=== PATIENT | female | born 1940 | race Caucasian/White ===

== ENCOUNTER 2020-06-09 13:15 | Inpatient (IN) | payer MEDICARE ==
--- NOTE | 2020-06-09 15:45 | ED ---
General Adult HPI - General Chief complaint: Abdominal Pain Stated complaint: Sent by Dr Dialysis problem Time Seen by Provider: 06/09/20 15:00 Source: patient, RN notes reviewed Mode of arrival: wheelchair Limitations: no limitations - History of Present Illness Initial comments: Patient is a pleasant 80-year-old female presenting to the emergency department with concern for nonfunctioning peritoneal dialysis catheter. Patient states last used was 2 days ago. Patient and still her dialysis fluid however nothing drained out. They did attempt at dialysis Center to get fluid out unsuccessfully. Somebody did touch base with Dr. Wiggins and advise patient come here. Patient does have some right lower abdominal discomfort. No fever. Patient states they were able to test some fluid and there was some mention of possible concern for infection. Patient denies having any fevers. No skin erythema or rash - Related Data Home Medications Medication Instructions Recorded Confirmed Calcitriol Unknown Dose 1 tab PO DAILY 06/09/20 06/09/20 Cephalexin [Keflex] 500 mg PO Q8H 06/09/20 06/09/20 Clopidogrel [Plavix] 75 mg PO DAILY 06/09/20 06/09/20 Insulin Glargine [Lantus] 50 unit SQ HS 06/09/20 06/09/20 Levothyroxine Sodium [Synthroid] 150 mcg PO DAILY 06/09/20 06/09/20 Metoprolol Tartrate [Lopressor] 100 mg PO BID 06/09/20 06/09/20 Torsemide Unknown Dose 1 tab PO BID 06/09/20 06/09/20 metOLazone [Zaroxolyn] 10 mg PO DAILY 06/09/20 06/09/20 Allergies Allergy/AdvReac Type Severity Reaction Status Date / Time levofloxacin [From Levaquin] Allergy Swelling Verified 06/09/20 16:14 Penicillins Allergy Swelling Verified 06/09/20 16:14 Sulfa (Sulfonamide Allergy Swelling Verified 06/09/20 16:14 Antibiotics) Review of Systems ROS Statement: Those systems with pertinent positive or pertinent negative responses have been documented in the HPI. ROS Other: All systems not noted in ROS Statement are negative. Constitutional: Denies: fever, chills Eyes: Denies: eye pain ENT: Denies: ear pain Respiratory: Denies: cough Cardiovascular: Denies: chest pain Endocrine: Denies: fatigue Gastrointestinal: Reports: as per HPI, abdominal pain. Denies: nausea, vomiting, diarrhea Genitourinary: Denies: dysuria Musculoskeletal: Denies: back pain Skin: Denies: rash, lesions Neurological: Denies: weakness Past Medical History Past Medical History: Coronary Artery Disease (CAD), Diabetes Mellitus, Hyperlipidemia, Hypertension, Renal Disease History of Any Multi-Drug Resistant Organisms: None Reported Past Surgical History: Cardiac Valve Replacement, Coronary Bypass/CABG, Heart Catheterization Past Psychological History: No Psychological Hx Reported Smoking Status: Never smoker Past Alcohol Use History: None Reported Past Drug Use History: None Reported General Exam Limitations: no limitations General appearance: alert, in no apparent distress Head exam: Present: atraumatic Eye exam: Present: normal appearance Neck exam: Present: normal inspection Respiratory exam: Present: normal lung sounds bilaterally Cardiovascular Exam: Present: regular rate, normal rhythm GI/Abdominal exam: Present: soft, tenderness (Mild right lower abdominal tenderness), other (Dialysis catheter left mid abdomen without swelling or tenderness or erythema). Absent: distended Extremities exam: Present: normal inspection Neurological exam: Present: alert Psychiatric exam: Present: normal affect, normal mood Skin exam: Present: normal color. Absent: rash, erythema Course Vital Signs 06/09/20 06/09/20 14:32 19:46 Temperature 98.7 F Pulse Rate 78 80 Respiratory 20 16 Rate Blood Pressure 186/83 194/89 O2 Sat by Pulse 97 97 Oximetry - Reevaluation(s) Reevaluation #1: 06/09/20 15:52 Case was discussed in detail with Dr. Wiggins who is familiar with this patient. He would like basic labs checked including potassium. He would like her tailbone acid catheter LOC for 24 hours of TPA and he will try to see for flushes tomorrow. At this point he would like a gram of cefepime and vancomycin. Admit to medicine. He also requests computed tomography scan of the abdomen pelvis to check for positioning of the catheter. Hold on surgical consult at this time and he will obtain tomorrow if Needed. 06/09/20 15:56 Case was discussed with Dr. Lee, who will admit for hospital call. Patient updated. EKG Findings - EKG Comments: EKG Findings:: Sinus rhythm with a rate of 74. FL 172. QRS 100. QT 422. QTC 468. Right axis. Septal Q waves. No acute ST change Medical Decision Making - Lab Data Result diagrams: 06/09/20 17:00 06/09/20 17:00 Disposition Clinical Impression: Peritonitis Disposition: ADMITTED IP TO THIS HOSP Condition: Serious Is patient prescribed a controlled substance at d/c from ED?: No Decision Time: 15:57
[2020-06-09] MEDS ORDERED: CEFEPIME 1 GM in SODIUM CHLORIDE 0.9% 50 ML IVPB STA (15:53)
[2020-06-09] MEDS ORDERED: VANCOMYCIN 1,250 MG in SODIUM CHLORIDE 0.9% 250 ML IVPB STA (15:53)
[2020-06-09] MEDS ORDERED: NALOXONE 0.4 MG/ML 1 ML VIAL IV PRN (15:58)
[2020-06-09] MEDS ORDERED: ALTEPLASE 2 MG VIAL (CATHFLO) IV STA (16:00)
[2020-06-09] MEDS ORDERED: IOPAMIDOL CONTRAST (ORAL USE) VIAL PO PRN (16:03)
[2020-06-09 17:04] LABS: Anisocytosis Slight; Basophils # (A) 0.1 k/uL (0-0.2); Basophils % (A) 0 %; Eosinophils # (A) 0.5 k/uL (0-0.7); Eosinophils % (A) 3 %; HCT 35.8 % (34.0-46.0); HGB 11.8 gm/dL (11.4-16.0); Lymphocytes # (A) 1.4 k/uL (1.0-4.8); Lymphocytes % (A) 8 %; MCH 29.1 pg (25.0-35.0); MCHC 32.9 g/dL (31.0-37.0); MCV 88.6 fL (80.0-100.0); Mean Platelet Volume 9.4; Monocytes # (A) 0.6 k/uL (0-1.0); Monocytes % (A) 4 %; Neutrophils # (A) 14.8 k/uL (1.3-7.7); Neutrophils % (A) 85 %; Platelet Count 423 k/uL (150-450); RBC 4.04 m/uL (3.80-5.40); RDW 16.7 % (11.5-15.5); WBC 17.4 k/uL (3.8-10.6)
[2020-06-09 17:05] LABS: Appearance,Urine Clear (Clear); Bilirubin,Urine Negative (Negative); Blood,Urine Trace (Negative); Color,Urine Light Yellow; Glucose,Urine (UA) Negative (Negative); Ketones,Urine Negative (Negative); Leukocyte Esterase,Urine Negative (Negative); Nitrite,Urine Negative (Negative); Protein,Urine 1+ (Negative); RBC,Urine 1 /hpf (0-5); Specific Gravity,Urine 1.009 (1.001-1.035); Squamous Epithelial Cell,Urine 1 /hpf (0-4); Urobilinogen,Urine <2.0 mg/dL (<2.0); WBC,Urine 2 /hpf (0-5)
[2020-06-09 17:15] LABS: Albumin 3.6 g/dL (3.5-5.0); Calcium 9.6 mg/dL (8.4-10.2); Potassium 3.9 mmol/L (3.5-5.1); Total Bilirubin 0.5 mg/dL (0.2-1.3); Total Protein 7.4 g/dL (6.3-8.2)
[2020-06-09 17:16] LABS: Partial Thromboplastin Time 27.1 sec (22.0-30.0); Prothrombin Time 10.6 sec (9.0-12.0)
[2020-06-09] MEDS: SODIUM CHLORIDE 0.9% 1,000 ML IV SCH (17:18)
--- NOTE | 2020-06-09 18:25 | CT ---
EXAMINATION TYPE: CT abdomen pelvis wo con DATE OF EXAM: 06/09/2020 COMPARISON: None HISTORY: Right sided groin pain. CT DLP: 833.8 mGycm Automated exposure control for dose reduction was used. Images obtained from the diaphragm to the floor the pelvis with oral contrast only. FINDINGS: There is some mild atelectasis at both lung bases. Heart is borderline enlarged. There is no pericard ial effusion. There is no pleural effusion. There is small pneumoperitoneum. There is drainage catheter in the anterior aspect of the peritoneal cavity with the tip on the right side near the ascending colon. Liver is intact. The bile ducts are not dilated. Gallbladder appears normal. Spleen is intact. There is no pancreatic mass. There is tiny pancreatic calcifications could relate to some chronic pancreati tis. There is no adrenal mass. Kidneys have normal size. There is no hydronephrosis. Ureters are not dilat ed. There is no retroperitoneal adenopathy. Bladder distends smoothly. There is some free fluid in th e pelvis. There is no inguinal hernia. There is extensive vascular calcification. There is evidence f or renal atrophy.. There is fairly normal contrast opacification of the small bowel. Contrast extends to the transverse colon. There is wall thickening of the cecum. The distal ileum appears normal. Ileocecal valve appear s normal. There is no evidence of a bowel obstruction. There is no mesenteric edema. The lumbar vertebra show f airly normal alignment. There is a mild degenerative subluxation at L3-4. There is disc space narrowi ng at L4-5. There is no compression fracture. The bony pelvis is intact. IMPRESSION: There is dialysis catheter in the anterior abdomen. There is mild to moderate pneumoperitoneum. No gorge wel obstruction. Wall thickening of the cecum. This is nonspecific. I would consider both inflammatory disease and alan or. There is low-density free fluid in the pelvis consistent with dialysis.
--- NOTE | 2020-06-09 18:55 | XR ---
EXAMINATION TYPE: XR chest 1V portable DATE OF EXAM: 06/09/2020 COMPARISON: NONE HISTORY: Pneumonia. Chest pain TECHNIQUE: FINDINGS: There is some linear density at the lung bases consistent with atelectasis. There is no hea rt failure. Thoracic aorta is atheromatous. There are sternal wires. IMPRESSION: There is some atelectasis at the lung bases. No heart failure.
[2020-06-09 19:22] LABS: Glucose,Whole Blood 102 mg/dL (75-99)
[2020-06-09] MEDS: ACETAMINOPHEN TAB 325 MG TAB PO PRN (19:29)
[2020-06-09 20:41] LABS: Glucose,Whole Blood 105 mg/dL (75-99)
--- NOTE | 2020-06-09 20:57 | HP ---
HISTORY AND PHYSICAL DATE OF SERVICE: 06/09/2020 CHIEF COMPLAINT: Abdominal pain. HISTORY OF PRESENT ILLNESS: This 80-year-old woman with a past medical history of multiple medical problems, including CAD, history of diabetes, hypertension, hyperlipidemia, history of CAD, CABG, history of chronic kidney disease, is on the peritoneal dialysis. The patient has been on peritoneal dialysis for the last 2 years by the nephrology team. The patient was noted to have some abdominal pain and also noted to have some turbid fluid coming from the return dialysate solution. The patient was sent to [facility] by the nephrology team. The dialysis catheter was also found to be blocked. The pain was mostly situated in the right lower quadrant. The dialysis catheter is in the left upper quadrant. There is no history of any fever, rigor or chills. No history of headache, loss of consciousness, seizures. PAST MEDICAL HISTORY: CAD, diabetes mellitus, hypertension, hyperlipidemia, cardiac valve replacement, CAD, CABG. HOME MEDICATIONS: Torsemide, calcitriol, Zaroxolyn, lopressor, Synthroid, Lantus, Plavix, Keflex. ALLERGIES: LEVAQUIN, PENICILLIN, SULFA. FAMILY HISTORY: No history of heart disease or strokes in the family. SOCIAL HISTORY: No history of smoking. No history of alcohol. REVIEW OF SYSTEMS: ENT: No diminished hearing. No diminished vision. CARDIOVASCULAR SYSTEM: As mentioned earlier. RESPIRATORY SYSTEM: As mentioned earlier. GI: As mentioned earlier. : As mentioned earlier. NERVOUS SYSTEM: No numbness, weakness. ALLERGY/IMMUNOLOGY: No asthma, hayfever. MUSCULOSKELETAL: As mentioned earlier. HEMATOLOGY/ONCOLOGY: No history of anemia. ENDOCRINE: As mentioned earlier. CONSTITUTIONAL: As mentioned earlier. DERMATOLOGY: Negative. RHEUMATOLOGY: Negative. PSYCHIATRY: As mentioned earlier. PHYSICAL EXAMINATION: Patient alert and oriented x3. Pulse is 78, blood pressure 186/83, respiration 20, temperature 98.7, pulse ox 97% on room air. HEENT: Conjunctivae normal. NECK: No jugular venous distention. CARDIOVASCULAR SYSTEM: S1, S2 muffled. RESPIRATORY SYSTEM: Breath sounds diminished at the bases. A few scattered rhonchi and crackles. ABDOMEN: Soft. Mild diffuse distention. Peritoneal dialysis catheter in situ. There is minimal tenderness in the right lower quadrant. No guarding. No mass palpable. Obese. LEGS: No edema. No swelling. NERVOUS SYSTEM: Higher functions as mentioned earlier. Moves all 4 limbs. No focal motor or sensory deficit. LYMPHATICS: No lymph node palpable in neck, axillae or groin. SKIN: No ulcer, rash, bleeding. JOINTS: No active deforming arthropathy. LABS: WBC 17.4, hemoglobin 11.8 and sodium 138, potassium 3.9, creatinine 3.83. UA noted. ASSESSMENT: 1. Abdominal pain with turbid dialysate fluid; possible acute peritonitis with possible early sepsis. 2. Chronic kidney disease, end-stage renal disease, on peritoneal dialysis. 3. Increased white count. 4. History of coronary artery disease. 5. Diabetes mellitus, type 2. 6. Hypertension. 7. Hyperlipidemia. 8. History of coronary artery disease, coronary artery bypass grafting. 9. History of cardiac valve replacement. 10.Obesity with body mass index of 30. 11.FULL CODE. RECOMMENDATIONS AND DISCUSSION: In this 80-year-old woman who presented with multiple complex medical issues, at this time I recommend initiate IV antibiotics. Will initiate cefepime and vancomycin. Otherwise, obtain the cultures. Nephrology consultation. CT scan of the abdomen and pelvis. Prognosis guarded because of multiple complex medical issues. Further recommendations to follow. A copy of this dictation is being forwarded to Dr. Lacey, who is the primary physician. MMODL / IJN: [id number] /
[2020-06-09] MEDS ORDERED: TORSEMIDE PO SCH (21:00)
[2020-06-09] MEDS: INSULIN DETEMIR (LEVEMIR) 100 UNIT/ML SYR SQ SCH (22:53)
[2020-06-09] MEDS: INSULIN ASPART (NovoLOG) 100 UNIT/ML VIAL SQ SCH (22:53)
[2020-06-10] MEDS: METOPROLOL TARTRATE 50 MG TAB PO SCH ×3 (00:42→21:20)
[2020-06-10] MEDS: CEFEPIME 2 GM in SODIUM CHLORIDE 0.9% 100 ML IVPB SCH ×4 (00:56→23:22)
[2020-06-10 05:28] LABS: Anisocytosis Slight; Basophils # (A) 0.1 k/uL (0-0.2); Basophils % (A) 0 %; Eosinophils # (A) 0.2 k/uL (0-0.7); Eosinophils % (A) 1 %; HCT 32.4 % (34.0-46.0); HGB 10.4 gm/dL (11.4-16.0); Lymphocytes # (A) 0.4 k/uL (1.0-4.8); Lymphocytes % (A) 2 %; MCH 28.3 pg (25.0-35.0); MCHC 32.1 g/dL (31.0-37.0); MCV 88.3 fL (80.0-100.0); Mean Platelet Volume 8.8; Monocytes # (A) 0.6 k/uL (0-1.0); Monocytes % (A) 4 %; Neutrophils # (A) 16.4 k/uL (1.3-7.7); Neutrophils % (A) 93 %; Platelet Count 347 k/uL (150-450); RBC 3.67 m/uL (3.80-5.40); RDW 16.5 % (11.5-15.5); WBC 17.7 k/uL (3.8-10.6)
[2020-06-10 05:57] LABS: ALT 12 U/L (4-34); AST 21 U/L (14-36); African American GFR (CKD) 12 (>60 ml/min/1.73 sqM); Albumin 2.9 g/dL (3.5-5.0); Albumin/Globulin Ratio 0.9; Alkaline Phosphatase 89 U/L (38-126); Anion Gap 10 mmol/L; Blood Urea Nitrogen 39 mg/dL (7-17); Calcium 9.2 mg/dL (8.4-10.2); Carbon Dioxide 25 mmol/L (22-30); Chloride 100 mmol/L (98-107); Globulin 3.2 g/dL; Glucose 152 mg/dL (74-99); Non-African American GFR(CKD) 10 (>60 ml/min/1.73 sqM); Potassium 4.3 mmol/L (3.5-5.1); Sodium 135 mmol/L (137-145); Total Bilirubin 0.4 mg/dL (0.2-1.3); Total Protein 6.1 g/dL (6.3-8.2)
[2020-06-10 06:00] LABS: Glucose,Whole Blood 158 mg/dL (75-99)
[2020-06-10] MEDS: LEVOTHYROXINE 75 MCG TAB PO SCH (06:28)
[2020-06-10] MEDS: INSULIN ASPART (NovoLOG) 100 UNIT/ML VIAL SQ SCH ×4 (06:30→21:20)
[2020-06-10] MEDS: metOLazone 5 MG TAB PO SCH (08:02)
[2020-06-10] MEDS ORDERED: CLOPIDOGREL 75 MG TAB PO SCH (09:00)
[2020-06-10] MEDS ORDERED: CALCITRIOL PO SCH (09:00)
--- NOTE | 2020-06-10 09:19 | P.NPCON ---
History of Present Illness - Reason for Consult end stage renal disease - History of Present Illness Reason for consultation: End-stage renal disease History of present illness: Patient is a 80-year-old female seen in consultation for end-stage renal disease. She is maintained on peritoneal dialysis. Patient presented to the hospital due to inability to drain. Patient states she noticed cloudy dialysate on Monday and was seen by the PD nurse at the dialysis unit. The catheter was flushed with heparin however it would and drained. She also complains of pain within inflow. She did take Keflex for 2 days prior to admission. No fever or chills. No vomiting. She is having loose bowel movements today. Potassium level normal. Hemodynamically stable. No chest pain or shortness of breath. No edema. Computed tomography scan revealed dialysis catheter in the anterior abdomen. No bowel obstruction was noted. She did receive a dose of IV vancomycin as well as cefepime yesterday. Oral intake is fair. Vital signs are stable. General: The patient appeared well nourished and normally developed. HEENT: Head exam is unremarkable. Neck is without jugular venous distension. LUNGS: Breath sounds decreased. HEART: Rate and Rhythm are regular. ABDOMEN: Soft, nontender. EXTREMITITES: No edema. Past Medical History Past Medical History: Coronary Artery Disease (CAD), Diabetes Mellitus, Hyperlipidemia, Hypertension, Renal Disease History of Any Multi-Drug Resistant Organisms: None Reported Past Surgical History: Cardiac Valve Replacement, Coronary Bypass/CABG, Heart Catheterization Past Psychological History: No Psychological Hx Reported Smoking Status: Never smoker Past Alcohol Use History: None Reported Past Drug Use History: None Reported Medications and Allergies Home Medications Medication Instructions Recorded Confirmed Type Calcitriol Unknown Dose 1 tab PO DAILY 06/09/20 06/09/20 History Cephalexin [Keflex] 500 mg PO Q8H 06/09/20 06/09/20 History Clopidogrel [Plavix] 75 mg PO DAILY 06/09/20 06/09/20 History Insulin Glargine [Lantus] 50 unit SQ HS 06/09/20 06/09/20 History Levothyroxine Sodium [Synthroid] 150 mcg PO DAILY 06/09/20 06/09/20 History Metoprolol Tartrate [Lopressor] 100 mg PO BID 06/09/20 06/09/20 History Torsemide Unknown Dose 1 tab PO BID 06/09/20 06/09/20 History metOLazone [Zaroxolyn] 10 mg PO DAILY 06/09/20 06/09/20 History Allergies Allergy/AdvReac Type Severity Reaction Status Date / Time levofloxacin [From Levaquin] Allergy Swelling Verified 06/09/20 16:14 Penicillins Allergy Swelling Verified 06/09/20 16:14 Sulfa (Sulfonamide Allergy Swelling Verified 06/09/20 16:14 Antibiotics) Physical Exam Vitals: Vital Signs Temp Pulse Pulse Resp BP BP Pulse Ox 06/10/20 08:00 99.6 F 81 16 151/68 92 L 06/10/20 02:00 98.0 F 99 18 182/84 91 L 06/09/20 20:00 97.6 F 78 18 148/68 95 06/09/20 19:46 80 16 194/89 97 06/09/20 14:32 98.7 F 78 20 186/83 97 Intake and Output 06/09/20 06/10/20 06/10/20 22:59 06:59 14:59 Other: Voiding Method Toilet # Voids 1 Weight 81.6 kg Results - Lab Results Most recent lab results Calcium 9.2 mg/dL (8.4-10.2) 06/10/20 04:20 06/10/20 04:20 06/10/20 04:20 Assessment and Plan Plan: Assessment: 1. End-stage renal disease maintained on peritoneal dialysis. 2. Cloudy dialysate with concern for peritonitis. 3. Inability to drain. Catheter was flushed with heparin and also locked with Cathflo yesterday. No constipation. 4. Anemia of chronic kidney disease. Hgb at goal. 5. Diabetes mellitus. Plan: Will attempt to flush the catheter with heparin again. Patient received IV vancomycin on June 09. Maintain cefepime 1 g IV daily. If catheter functioning, will resume PD and send dialysate for cell count culture and Gram stain. Check C. diff. Check blood cultures. Consult infectious disease for the peritonitis and also surgery for potential revision if needed. If PD catheter not draining, will initiate hemodialysis. Patient agreeable. Thank you for the consultation. I will continue to follow the patient with you during her hospital stay.
[2020-06-10 11:53] LABS: Glucose,Whole Blood 114 mg/dL (75-99)
--- NOTE | 2020-06-10 12:41 | P.GSCN ---
History of Present Illness Consult date: 06/10/20 History of present illness: CHIEF COMPLAINT: Abdominal pain HISTORY OF PRESENT ILLNESS: This is a 80-year-old female with a known history of chronic kidney disease on peritoneal hemodialysis. Patient had peritoneal dialysis catheter placed 2 years ago at [facility]. Patient also has a history of coronary artery disease with prior CABG and cardiac stents, heart valve replacement, hyperlipidemia and hypertension. Past surgical history includes hysterectomy. Patient presents with abdominal pain. And concerns for malfunctioning peritoneal dialysis catheter. Patient reports that her dialysis catheter had stopped working yesterday. She noticed that the fluid had been cloudy on Monday and had a low output. She went to the dialysis center and the catheter was flushed with heparin however it would not drained. Patient has been having diffuse abdominal pain. She did have some nausea last night and she had been having some low-grade temps at home. There were concerns for peritonitis and she's been started on IV antibiotics. She also had received antibiotics prior to admission. She denies any change in bowel movements. Surgical service was consulted in regards to the malfunctioning peritoneal dialysis catheter. PAST MEDICAL HISTORY: See list. PAST SURGICAL HISTORY: See list. MEDICATIONS: See list. ALLERGIES: See list. SOCIAL HISTORY: No illicit drug use. REVIEW OF SYSTEMS: CONSTITUTIONAL: Denies fever or chills. HEENT: Denies blurred vision, vision changes, or eye pain. Denies hemoptysis CARDIOVASCULAR: Denies chest pain or pressure. RESPIRATORY: No shortness of breath. GASTROINTESTINAL: See HPI for pertinent findings HEMATOLOGIC: Denies bleeding disorders. GENITOURINARY: Denies any blood in urine or increased urinary frequency. SKIN: Denies pruitis. Denies rash. PHYSICAL EXAM: VITAL SIGNS: Reviewed GENERAL: Well-developed in no acute distress. HEENT: No sclera icterus. Extraocular movements grossly intact. Moist buccal mucosa. Head is atraumatic, normocephalic. No nasal drainage. ABDOMEN: Soft. Nondistended. Diffuse tenderness. NEUROLOGIC: Alert and oriented. Cranial nerves II through XII grossly intact. LABORATORY DATA: WBC 17.7 Hgb 10.4 platelets 347 creatinine 3.96 IMAGING: Computed tomography scan the abdomen and pelvis with oral contrast there is dialysis catheter in the anterior abdomen. There is mild to moderate pneumoperitoneum. No bowel obstruction. Wall thickening of the cecum. This is nonspecific. Radiologist recommends to consider both inflammatory disease and tumor. There is low-density free fluid in the pelvis consistent with dialysis. ASSESSMENT: 1. Malfunctioning peritoneal dialysis catheter 2. Abdominal pain 3. Possible peritonitis 4. Wall thickening of the cecum noted on CAT scan possible inflammatory disease and/or tumor noted by radiologist PLAN: -Patient scheduled for peritoneal dialysis catheter insertion on Monday06/12/[address] Ruiz -Hold Plavix in anticipation for procedure -Patient will eventually need colonoscopy for further evaluation of the wall thickening at the cecum -Continue antibiotics for peritonitis Thank you for this consultation Physician Eddy Current Inspector note has been reviewed by physician. Signing provider agrees with the documented findings, assessment, and plan of care. Past Medical History Past Medical History: Coronary Artery Disease (CAD), Diabetes Mellitus, GI Blee d, Hyperlipidemia, Hypertension, Osteoarthritis (OA), Pneumonia, Renal Disease, Thyroid Disorder Additional Past Medical History / Comment(s): IDDM type II, neuropathy bilateral feet, ESRD/peritoneal dialysis x 3 years, UTI in past, pneumonia as a child, arthritis in bilateral hands, gastric ulcer, lower GI bleed with transfusions, past would "miss a heartbeat once in awhile", hypothyroid. History of Any Multi-Drug Resistant Organisms: None Reported Past Surgical History: Cardiac Valve Replacement, Coronary Bypass/CABG, Heart Catheterization, Heart Catheterization With Stent Additional Past Surgical History / Comment(s): 2018 CABG 3 vessels with valve replacement at [facility], peritoneal dialysis catheter, EGDs, colonoscopies, thyroidectomy d/t precancerous, bilateral cataract removal/lens implants. Additional Past Anesthesia/Blood Transfusion Reaction / Comm: Sometimes slow to wake. Pt has received blood in past without reaction. Date of Last Stent Placement:: 2015 Smoking Status: Never smoker - Past Family History Father Family Medical History: Myocardial Infarction (RI) Additional Family Medical History / Comment(s): Father of a RI at the age of 65yrs. Mother Family Medical History: CVA/TIA Additional Family Medical History / Comment(s): Mother of a CVA at the age of 78yrs. Medications and Allergies Home Medications Medication Instructions Recorded Confirmed Type Cephalexin [Keflex] 500 mg PO Q8H 06/09/20 06/09/20 History Clopidogrel [Plavix] 75 mg PO DAILY 06/09/20 06/09/20 History Insulin Glargine [Lantus] 50 unit SQ HS 06/09/20 06/09/20 History Levothyroxine Sodium [Synthroid] 150 mcg PO DAILY 06/09/20 06/09/20 History Metoprolol Tartrate [Lopressor] 100 mg PO BID 06/09/20 06/09/20 History metOLazone [Zaroxolyn] 10 mg PO DAILY 06/09/20 06/09/20 History Torsemide [Demadex] 20 mg PO BID 06/10/20 06/10/20 History calcitrioL [Calcitriol] 0.5 mcg PO DAILY 06/10/20 06/10/20 History Allergies Allergy/AdvReac Type Severity Reaction Status Date / Time levofloxacin [From Levaquin] Allergy Swelling Verified 06/09/20 16:14 Penicillins Allergy Swelling Verified 06/09/20 16:14 Sulfa (Sulfonamide Allergy Swelling Verified 06/09/20 16:14 Antibiotics) Surgical - Exam Vital Signs Temp Pulse Resp BP Pulse Ox 98.7 F 78 20 186/83 97 06/09/20 14:32 06/09/20 14:32 06/09/20 14:32 06/09/20 14:32 06/09/20 14:32 Results - Labs 06/10/20 04:20 06/10/20 04:20 Abnormal Lab Results - Last 24 Hours (Table) 06/09/20 06/09/20 06/09/20 Range/Units 17:00 17:00 17:00 WBC 17.4 H (3.8-10.6) k/uL RBC (3.80-5.40) m/uL Hgb (11.4-16.0) gm/dL Hct (34.0-46.0) % RDW 16.7 H (11.5-15.5) % Neutrophils # 14.8 H (1.3-7.7) k/uL Lymphocytes # (1.0-4.8) k/uL Sodium (137-145) mmol/L BUN 44 H (7-17) mg/dL Creatinine 3.83 H (0.52-1.04) mg/dL Glucose 134 H (74-99) mg/dL POC Glucose (mg/dL) (75-99) mg/dL Total Protein (6.3-8.2) g/dL Albumin (3.5-5.0) g/dL Urine Protein 1+ H (Negative) Urine Blood Trace H (Negative) 06/09/20 06/09/20 06/10/20 Range/Units 19:21 20:40 04:20 WBC 17.7 H (3.8-10.6) k/uL RBC 3.67 L (3.80-5.40) m/uL Hgb 10.4 L (11.4-16.0) gm/dL Hct 32.4 L (34.0-46.0) % RDW 16.5 H (11.5-15.5) % Neutrophils # 16.4 H (1.3-7.7) k/uL Lymphocytes # 0.4 L (1.0-4.8) k/uL Sodium (137-145) mmol/L BUN (7-17) mg/dL Creatinine (0.52-1.04) mg/dL Glucose (74-99) mg/dL POC Glucose (mg/dL) 102 H 105 H (75-99) mg/dL Total Protein (6.3-8.2) g/dL Albumin (3.5-5.0) g/dL Urine Protein (Negative) Urine Blood (Negative) 06/10/20 06/10/20 06/10/20 Range/Units 04:20 05:59 11:51 WBC (3.8-10.6) k/uL RBC (3.80-5.40) m/uL Hgb (11.4-16.0) gm/dL Hct (34.0-46.0) % RDW (11.5-15.5) % Neutrophils # (1.3-7.7) k/uL Lymphocytes # (1.0-4.8) k/uL Sodium 135 L (137-145) mmol/L BUN 39 H (7-17) mg/dL Creatinine 3.96 H (0.52-1.04) mg/dL Glucose 152 H (74-99) mg/dL POC Glucose (mg/dL) 158 H 114 H (75-99) mg/dL Total Protein 6.1 L (6.3-8.2) g/dL Albumin 2.9 L (3.5-5.0) g/dL Urine Protein (Negative) Urine Blood (Negative) Diabetes panel 06/09/20 06/10/20 Range/Units 17:00 04:20 Sodium 138 135 L (137-145) mmol/L Potassium 3.9 4.3 (3.5-5.1) mmol/L Chloride 100 100 (98-107) mmol/L Carbon Dioxide 26 25 (22-30) mmol/L BUN 44 H 39 H (7-17) mg/dL Creatinine 3.83 H 3.96 H (0.52-1.04) mg/dL Glucose 134 H 152 H (74-99) mg/dL Calcium 9.6 9.2 (8.4-10.2) mg/dL AST 23 21 (14-36) U/L ALT 14 12 (4-34) U/L Alkaline Phosphatase 106 89 (38-126) U/L Total Protein 7.4 6.1 L (6.3-8.2) g/dL Albumin 3.6 2.9 L (3.5-5.0) g/dL Calcium panel 06/09/20 06/10/20 Range/Units 17:00 04:20 Calcium 9.6 9.2 (8.4-10.2) mg/dL Albumin 3.6 2.9 L (3.5-5.0) g/dL Pituitary panel 06/09/20 06/10/20 Range/Units 17:00 04:20 Sodium 138 135 L (137-145) mmol/L Potassium 3.9 4.3 (3.5-5.1) mmol/L Chloride 100 100 (98-107) mmol/L Carbon Dioxide 26 25 (22-30) mmol/L BUN 44 H 39 H (7-17) mg/dL Creatinine 3.83 H 3.96 H (0.52-1.04) mg/dL Glucose 134 H 152 H (74-99) mg/dL Calcium 9.6 9.2 (8.4-10.2) mg/dL Adrenal panel 06/09/20 06/10/20 Range/Units 17:00 04:20 Sodium 138 135 L (137-145) mmol/L Potassium 3.9 4.3 (3.5-5.1) mmol/L Chloride 100 100 (98-107) mmol/L Carbon Dioxide 26 25 (22-30) mmol/L BUN 44 H 39 H (7-17) mg/dL Creatinine 3.83 H 3.96 H (0.52-1.04) mg/dL Glucose 134 H 152 H (74-99) mg/dL Calcium 9.6 9.2 (8.4-10.2) mg/dL Total Bilirubin 0.5 0.4 (0.2-1.3) mg/dL AST 23 21 (14-36) U/L ALT 14 12 (4-34) U/L Alkaline Phosphatase 106 89 (38-126) U/L Total Protein 7.4 6.1 L (6.3-8.2) g/dL Albumin 3.6 2.9 L (3.5-5.0) g/dL
[2020-06-10 17:25] LABS: Glucose,Whole Blood 128 mg/dL (75-99)
[2020-06-10] MEDS ORDERED: DIALYSIS INTRAPERIT ONE (18:00)
[2020-06-10] MEDS ORDERED: DIALYSIS DEX INTRAPERIT ONE (18:00)
[2020-06-10] MEDS ORDERED: HEPARIN SODIUM PORCINE INTRAPERIT ONE (18:00)
[2020-06-10 20:10] LABS: Glucose,Whole Blood 261 mg/dL (75-99)
[2020-06-10] MEDS ORDERED: HEPARIN SODIUM,PORCINE 5,000 UNIT/ML 1 ML VIAL SQ SCH (21:00)
[2020-06-10] MEDS ORDERED: HYDROcodone/APAP 5-325MG 1 EACH TAB PO PRN (21:07)
[2020-06-10] MEDS ORDERED: HYDROmorphone 0.5 MG/0.5 ML SYRINGE IVP PRN (21:07)
[2020-06-10] MEDS: INSULIN DETEMIR (LEVEMIR) 100 UNIT/ML SYR SQ SCH (21:20)
[2020-06-10] MEDS: SODIUM CHLORIDE 0.9% 1,000 ML IV SCH (21:23)
--- NOTE | 2020-06-10 21:59 | PN ---
PROGRESS NOTE DATE OF SERVICE: 06/10/2020. This 80-year-old woman admitted with abdominal pain and peritonitis has blocked peritoneal tube. Surgery has been consulted. CT scan showed some inflammation in cecal area. White count is still elevated. The patient is on broad-spectrum IV antibiotics. Cultures are negative so far. Infectious Disease has been consulted. PAST MEDICAL HISTORY: Reviewed. REVIEW OF SYSTEMS: CARDIOVASCULAR: No angina. RESPIRATION: No cough. No hemoptysis. GI as mentioned earlier. : As mentioned earlier. Nervous system: No numbness or weakness. CURRENT MEDICATIONS: Reviewed and include: Tylenol, Cefepime, Levemir, Synthroid, Zaroxolyn and Lopressor. Doses are reviewed. PHYSICAL EXAMINATION: Alert and oriented times three. Pulse 76, blood pressure 170/72, respiration 16, temperature 97.9, pulse ox 94% on room air. HEENT: Conjunctivae normal. NECK: No JVD. CARDIOVASCULAR: S1, S2. RESPIRATORY: Breath sounds diminished in the bases. A few scattered rhonchi. ABDOMEN: Soft. Obese. Mild diffuse tenderness. LEGS: No edema. No swelling. NERVOUS SYSTEM: No focal deficits. LABS: WBC 17.7, hemoglobin 10.4, sodium 135. ASSESSMENT: 1. Abdominal pain with turbid dialysate fluid, possible acute peritonitis with possible early sepsis, present on admission. 2. Chronic kidney disease, end-stage renal disease on peritoneal dialysis. 3. Possible inflammation of the cecum and typhlitis. 4. Increased WBC. 5. History of coronary artery disease. 6. Diabetes mellitus type 2. 7. Hypertension. 8. Hyperlipidemia. 9. History of coronary artery disease/coronary artery bypass grafting. 10.History of cardiac valve replacement. 11.Obesity, body mass index of 30. 12.FULL CODE. RECOMMENDATIONS AND DISCUSSION: Recommend to continue symptomatic treatment. Otherwise we will monitor the patient closely with Nephrology consultation and surgery evaluation. Broad-spectrum IV antibiotic. DVT prophylaxis. Prognosis guarded because of multiple complex medical issues. Further recommendations to follow. MMODL / IJN: [id number] /
[2020-06-10] MEDS ORDERED: VANCOMYCIN IV PER PHARMACY 1 EACH MISC MISCELLANE PRN (22:18)
[2020-06-11] MEDS: HYDROcodone/APAP 5-325MG 1 EACH TAB PO PRN ×2 (01:29→19:25)
[2020-06-11] MEDS: LEVOTHYROXINE 75 MCG TAB PO SCH (05:17)
[2020-06-11 07:08] LABS: Glucose,Whole Blood 76 mg/dL (75-99)
[2020-06-11] MEDS: INSULIN ASPART (NovoLOG) 100 UNIT/ML VIAL SQ SCH ×4 (07:32→20:53)
--- NOTE | 2020-06-11 09:22 | CONS ---
CONSULTATION DATE OF SERVICE: 06/10/2020 REASON FOR CONSULTATION: Peritonitis. HISTORY OF PRESENT ILLNESS: The patient is an 80-year-old female with a past medical history significant for end-stage kidney disease, on peritoneal dialysis for last 2 years. The patient started having a problem with more cloudy peritoneal fluid on Monday and that is 4 days before presentation to the hospital. On Monday she was evaluated at the dialysis center and apparently the patient did have fluid cultures obtained. Over the next, last 2 days, patient noticed to have no output from her dialysis catheter site. The patient did go into the dialysis center to get the fluid out, but it was unsuccessful. Subsequently the patient was advised to come to the [facility] ER. On presentation to the hospital, the patient was afebrile and no fever has been recorded subsequently. The patient did have a white count of 17.7, creatinine was 3.96. Shetty PCR was negative. Urine has been negative. The patient has been given a dose of vancomycin and cefepime. Infectious Disease was consulted for further management of antibiotic therapy. Apparently the patient's peritoneal cultures obtained in the dialysis center was showing Gram-positive cocci in clusters with ID sensitivities pending. REVIEW OF SYSTEMS: Positive points have been mentioned in HPI. Rest of systems are negative. PAST MEDICAL HISTORY: Coronary artery disease, diabetes mellitus, hyperlipidemia, hypertension, , end- stage renal disease. PAST SURGICAL HISTORY: Cardiac valve replacement, coronary artery bypass grafting, heart catheterization. SOCIAL HISTORY: No history of smoking, drinking or drug use. FAMILY HISTORY: No pertinent findings noticed. ALLERGIES: Allergies to PENICILLIN, SULFA, LEVOFLOXACIN. MEDICATIONS: Medications include the patient is currently on Tylenol, [place], cefepime 2 grams q.8, heparin, Dilaudid, NovoLog, Levemir, Synthroid, Zaroxolyn, Lopressor and vancomycin pharmacy to dose. PHYSICAL EXAMINATION: Blood pressure 161/68, pulse of 81, temperature 98.2. She is 94% on room air. General description is an elderly female up in the chair in no distress. No tachypnea or accessory muscles of respiration use. HEENT: Examination shows no pallor or scleral icterus. Oral mucous membrane is dry. NECK: Trachea central. No thyromegaly. LUNGS: Unlabored breathing, clear to auscultation anteriorly. No wheeze or crackle. HEART: S1, S2. Regular rate and rhythm. ABDOMEN: Soft, mildly distended. No evidence of any infection at the site of the dialysis catheter. EXTREMITIES: No edema of feet. SKIN EXAMINATION: No rash or mass palpable. NEUROLOGICAL: Patient is awake, alert, oriented x3. Mood and affect normal. LABS: Culture in outpatient setting showing Gram-positive cocci in clusters. Blood culture so far negative. CT of abdomen and pelvis report mentioned above. DIAGNOSTIC IMPRESSION: Patient admitted to the hospital with abdominal pain. No function of her peritoneal dialysis catheter in this patient who recently did have cloudy peritoneal fluid and culture done in outpatient setting showing Gram-positive cocci in clusters with final ID sensitive pending, high clinical suspicion for either Staph epi or MRSA. PLAN: 1. The patient is currently covered vancomycin pharmacy to dose, to continue, however, discontinue the cefepime. 2. We will wait for the culture to finalize to determine the infecting pathogen and determine either to remove or keep the current dialysis catheter. However, if not functioning, it may need to be removed. 3. We will follow on clinical condition and culture to further adjust medication if needed. Thank you for this consultation. Will follow this patient along with you. MMODL / IJN: [id number] /
--- NOTE | 2020-06-11 09:23 | P.PN ---
Subjective Patient is seen in follow-up for end-stage renal disease. Unable to tolerate peritoneal dialysis exchanges due to significant pain. Currently on IV antibiotics for peritonitis. Oral intake fair. No chest pain or shortness of breath. Vital signs are stable. General: The patient appeared well nourished and normally developed. HEENT: Head exam is unremarkable. Neck is without jugular venous distension. LUNGS: Breath sounds decreased. HEART: Rate and Rhythm are regular. ABDOMEN: Soft, mild generalized tenderness. EXTREMITITES: No edema. Objective - Vital Signs Vital signs: Vital Signs Temp 97.8 F 06/11/20 07:07 Pulse 66 06/11/20 08:17 Resp 16 06/11/20 08:17 BP 156/66 06/11/20 07:07 Pulse Ox 95 06/11/20 07:07 Intake & Output 06/10/20 06/11/20 06/11/20 18:59 06:59 18:59 Intake Total 500 870 Output Total 300 Balance 500 570 Weight 81.6 kg Intake: Intake, IV Titration 100 280 Amount Cefepime 2 gm In Sodium 100 Chloride 0.9% 100 ml @ 25 mls/hr IVPB Q8HR LOCO Rx# :[id number] Sodium Chloride 0.9% 1, 280 000 ml @ 20 mls/hr IV . Q24H LOCO Rx#:[id number] Oral 400 590 Output: Urine 300 Other: Voiding Method Toilet Toilet # Voids 2 - Labs CBC & Chem 7: 06/10/20 04:20 06/10/20 04:20 Labs: Abnormal Lab Results - Last 24 Hours (Table) 06/10/20 06/10/20 06/10/20 Range/Units 11:51 17:23 20:09 POC Glucose (mg/dL) 114 H 128 H 261 H (75-99) mg/dL Microbiology - Last 24 Hours (Table) 06/09/20 16:30 Blood Culture - Preliminary Blood No Growth after 24 hours 06/09/20 16:45 Blood Culture - Preliminary Blood No Growth after 24 hours Assessment and Plan Plan: Assessment: 1. End-stage renal disease maintained on peritoneal dialysis. 2. CAPD peritonitis. Patient's dialysate culture was positive for gram- positive cocci. 3. Inability to drain. Catheter was flushed with heparin and also locked with Cathflo. No constipation. Likely due to peritonitis. 4. Anemia of chronic kidney disease. Hgb at goal. 5. Diabetes mellitus. Plan: Maintain IV vancomycin. Infectious disease consulted. Remove PD catheter. Consult vascular surgery for permacath placement. Initiate hemodialysis today. Follow up cultures. Will reconsider peritoneal dialysis down the road once peritonitis treatment completed. Patient is agreeable with the plan.
[2020-06-11] MEDS: metOLazone 5 MG TAB PO SCH (10:07)
[2020-06-11] MEDS: METOPROLOL TARTRATE 50 MG TAB PO SCH ×2 (10:07→20:53)
[2020-06-11] MEDS: HEPARIN SODIUM,PORCINE/PF 5,000 UNIT/0.5 ML SYRINGE SQ SCH ×3 (10:07→20:53)
[2020-06-11] MEDS: PANTOPRAZOLE 40 MG TABLET PO SCH (10:07)
[2020-06-11 11:07] LABS: Glucose,Whole Blood 106 mg/dL (75-99)
[2020-06-11 11:12] LABS: Basophils # (A) 0.06 X 10*3/uL (0.00-0.10); Basophils % (A) 0.5 %; Eosinophils # (A) 0.49 X 10*3/uL (0.04-0.35); Eosinophils % (A) 4.4 %; HCT 32.7 % (37.2-46.3); HGB 10.1 g/dL (12.0-15.0); Lymphocytes # (A) 0.95 X 10*3/uL (0.90-5.00); Lymphocytes % (A) 8.5 %; MCH 28.4 pg (27.0-32.0); MCHC 30.9 g/dL (32.0-37.0); MCV 91.9 fL (80.0-97.0); Mean Platelet Volume 11.6 fL (9.5-12.2); Monocytes # (A) 0.91 X 10*3/uL (0.20-1.00); Monocytes % (A) 8.2 %; Neutrophils # (A) 8.52 X 10*3/uL (1.80-7.70); Neutrophils % (A) 76.3 %; Platelet Count 344 X 10*3/uL (140-440); RBC 3.56 X 10*6/uL (4.10-5.20); RDW 16.7 % (11.5-14.5); WBC 11.16 X 10*3/uL (4.50-10.00)
[2020-06-11 11:57] LABS: African American GFR (CKD) 11.4 (60.0-200.0); Anion Gap 9.4 mmol/L (4.00-12.00); BUN/Creat Ratio 12.25 Ratio (12.00-20.00); Calcium 9.2 mg/dL (8.7-10.3); Carbon Dioxide 25.6 mmol/L (21.6-31.8); Non-African American GFR(CKD) 9.9 (60.0-200.0); Potassium 3.7 mmol/L (3.5-5.5)
[2020-06-11] MEDS ORDERED: VANCOMYCIN 1,500 MG in SODIUM CHLORIDE 0.9% 250 ML IVPB ONE (12:00)
[2020-06-11] MEDS ORDERED: LIDOCAINE 1% INJ 10MG/ML (20 ML MDV) SQ ONE (14:31)
[2020-06-11] MEDS ORDERED: MIDAZOLAM 2 MG/2 ML VIAL IV ONE ×2 (14:35)
[2020-06-11] MEDS ORDERED: IV FLUID CONTINUATION 800 ML IV ONE (14:36)
--- NOTE | 2020-06-11 14:48 | P.PN ---
Subjective Progress Note Date: 06/11/20 CHIEF COMPLAINT: Abdominal pain HISTORY OF PRESENT ILLNESS: Patient is followed by surgical service due to her malfunctioning peritoneal dialysis catheter. She is on antibiotics for peritonitis. She is followed by nephrology. She is scheduled for permacath placement by vascular surgery today and to start hemodialysis. Patient complains of right lower abdominal tenderness. She denies any nausea or vomiting. Case discussed with nephrology and medicine service. Afebrile. WBC has decreased from 17.7-11.16 Hgb 10.1 Patient seen and examined with Dr. Ruiz PHYSICAL EXAM: VITAL SIGNS: Reviewed. GENERAL: Well-developed in no acute distress. HEENT: No sclera icterus. Extraocular movements grossly intact. Moist buccal mucosa. Head is atraumatic, normocephalic. ABDOMEN: Soft. Distended. Right lower abdominal tenderness NEUROLOGIC: Alert and oriented. Cranial nerves II through XII grossly intact. ASSESSMENT: 1. Malfunctioning peritoneal dialysis catheter 2. Abdominal pain 3. Peritonitis 4. Wall thickening of the cecum noted on CAT scan possible inflammatory disease and/or tumor noted by radiologist PLAN: -Patient is scheduled for peritoneal catheter removal tomorrow 06/12/[address] Ruiz -Keep patient nothing by mouth after midnight -Keep Plavix on hold -Patient will eventually need colonoscopy for further evaluation of the wall thickening at the cecum -Patient scheduled for permacath placement by vascular surgery today -Continue antibiotics per ID Physician Bobbin Winder Tender note has been reviewed by physician. Signing provider agrees with the documented findings, assessment, and plan of care. Objective - Vital Signs Vital signs: Vital Signs Temp 98.2 F 06/11/20 12:39 Pulse 60 06/11/20 12:39 Resp 16 06/11/20 12:39 BP 155/68 06/11/20 12:39 Pulse Ox 94 L 06/11/20 12:39 Intake & Output 06/10/20 06/11/20 06/11/20 18:59 06:59 18:59 Intake Total 500 870 0 Output Total 300 Balance 500 570 0 Weight 81.6 kg Intake: Intake, IV Titration 100 280 Amount Cefepime 2 gm In Sodium 100 Chloride 0.9% 100 ml @ 25 mls/hr IVPB Q8HR LOCO Rx# :[id number] Sodium Chloride 0.9% 1, 280 000 ml @ 20 mls/hr IV . Q24H LOCO Rx#:[id number] Oral 400 590 0 Output: Urine 300 Other: Voiding Method Toilet Toilet # Voids 2 - Labs CBC & Chem 7: 06/11/20 06:19 06/11/20 06:19 Labs: Abnormal Lab Results - Last 24 Hours (Table) 06/10/20 06/10/20 06/11/20 Range/Units 17:23 20:09 06:19 WBC 11.16 H (4.50-10.00) X 10*3/uL RBC 3.56 L (4.10-5.20) X 10*6/uL Hgb 10.1 L (12.0-15.0) g/dL Hct 32.7 L (37.2-46.3) % MCHC 30.9 L (32.0-37.0) g/dL RDW 16.7 H (11.5-14.5) % Immature Gran # 0.23 H (0.00-0.04) X 10*3/uL Neutrophils # 8.52 H (1.80-7.70) X 10*3/uL Eosinophils # 0.49 H (0.04-0.35) X 10*3/uL BUN (9.0-27.0) mg/dL Creatinine (0.6-1.5) mg/dL Est GFR (CKD-EPI)AfAm (60.0-200.0) Est GFR (CKD-EPI)NonAf (60.0-200.0) Glucose (70-110) mg/dL POC Glucose (mg/dL) 128 H 261 H (75-99) mg/dL 06/11/20 06/11/20 Range/Units 06:19 11:05 WBC (4.50-10.00) X 10*3/uL RBC (4.10-5.20) X 10*6/uL Hgb (12.0-15.0) g/dL Hct (37.2-46.3) % MCHC (32.0-37.0) g/dL RDW (11.5-14.5) % Immature Gran # (0.00-0.04) X 10*3/uL Neutrophils # (1.80-7.70) X 10*3/uL Eosinophils # (0.04-0.35) X 10*3/uL BUN 49.0 H (9.0-27.0) mg/dL Creatinine 4.0 H (0.6-1.5) mg/dL Est GFR (CKD-EPI)AfAm 11.4 L (60.0-200.0) Est GFR (CKD-EPI)NonAf 9.9 L (60.0-200.0) Glucose 42 L* (70-110) mg/dL POC Glucose (mg/dL) 106 H (75-99) mg/dL Microbiology - Last 24 Hours (Table) 06/09/20 16:30 Blood Culture - Preliminary Blood No Growth after 24 hours 06/09/20 16:45 Blood Culture - Preliminary Blood No Growth after 24 hours
[2020-06-11] MEDS: SODIUM CHLORIDE 0.9% 1,000 ML IV SCH (14:49)
--- NOTE | 2020-06-11 15:07 | P.GSCN ---
History of Present Illness History of present illness: 80-year-old old white female, patient has a history of chronic renal failure on peritoneal dialysis patient came with abdominal pain and found to have a dialysis catheter.) Infected I was consulted for placement of a dialysis catheter right jugular approach. Patient has history of coronary artery disease diabetes hypertension chronic renal failure Neck examination neck is supple no bruit appreciated Chest is clear good and both lungs Abdomen patient has a pattern dialysis catheter or sounds are present Vascular brachial radial femoral pulses are present plan is placement of kathie lysis catheter risk and complication discussed Past Medical History Past Medical History: Coronary Artery Disease (CAD), Diabetes Mellitus, GI Bleed, Hyperlipidemia, Hypertension, Osteoarthritis (OA), Pneumonia, Renal Disease, Thyroid Disorder Additional Past Medical History / Comment(s): IDDM type II, neuropathy bilateral feet, ESRD/peritoneal dialysis x 3 years, UTI in past, pneumonia as a child, arthritis in bilateral hands, gastric ulcer, lower GI bleed with transfusions, past would "miss a heartbeat once in awhile", hypothyroid. History of Any Multi-Drug Resistant Organisms: None Reported Past Surgical History: Cardiac Valve Replacement, Coronary Bypass/CABG, Heart Catheterization, Heart Catheterization With Stent Additional Past Surgical History / Comment(s): 2018 CABG 3 vessels with valve replacement at [facility], peritoneal dialysis catheter, EGDs, colonoscopies, thyroidectomy d/t precancerous, bilateral cataract removal/lens implants. Additional Past Anesthesia/Blood Transfusion Reaction / Comm: Sometimes slow to wake. Pt has received blood in past without reaction. Date of Last Stent Placement:: 2015 Smoking Status: Never smoker - Past Family History Father Family Medical History: Myocardial Infarction (ME) Additional Family Medical History / Comment(s): Father of a ME at the age of 65yrs. Mother Family Medical History: CVA/TIA Additional Family Medical History / Comment(s): Mother of a CVA at the age of 78yrs. Medications and Allergies Home Medications Medication Instructions Recorded Confirmed Type Cephalexin [Keflex] 500 mg PO Q8H 06/09/20 06/09/20 History Clopidogrel [Plavix] 75 mg PO DAILY 06/09/20 06/09/20 History Insulin Glargine [Lantus] 50 unit SQ HS 06/09/20 06/09/20 History Levothyroxine Sodium [Synthroid] 150 mcg PO DAILY 06/09/20 06/09/20 History Metoprolol Tartrate [Lopressor] 100 mg PO BID 06/09/20 06/09/20 History metOLazone [Zaroxolyn] 10 mg PO DAILY 06/09/20 06/09/20 History Torsemide [Demadex] 20 mg PO BID 06/10/20 06/10/20 History calcitrioL [Calcitriol] 0.5 mcg PO DAILY 06/10/20 06/10/20 History Allergies Allergy/AdvReac Type Severity Reaction Status Date / Time levofloxacin [From Levaquin] Allergy Swelling Verified 06/09/20 16:14 Penicillins Allergy Swelling Verified 06/09/20 16:14 Sulfa (Sulfonamide Allergy Swelling Verified 06/09/20 16:14 Antibiotics) Surgical - Exam Vital Signs Temp Pulse Resp BP Pulse Ox 98.7 F 78 20 186/83 97 06/09/20 14:32 06/09/20 14:32 06/09/20 14:32 06/09/20 14:32 06/09/20 14:32 Results - Labs 06/11/20 06:19 06/11/20 06:19 Abnormal Lab Results - Last 24 Hours (Table) 06/10/20 06/10/20 06/11/20 Range/Units 17:23 20:09 06:19 WBC 11.16 H (4.50-10.00) X 10*3/uL RBC 3.56 L (4.10-5.20) X 10*6/uL Hgb 10.1 L (12.0-15.0) g/dL Hct 32.7 L (37.2-46.3) % MCHC 30.9 L (32.0-37.0) g/dL RDW 16.7 H (11.5-14.5) % Immature Gran # 0.23 H (0.00-0.04) X 10*3/uL Neutrophils # 8.52 H (1.80-7.70) X 10*3/uL Eosinophils # 0.49 H (0.04-0.35) X 10*3/uL BUN (9.0-27.0) mg/dL Creatinine (0.6-1.5) mg/dL Est GFR (CKD-EPI)AfAm (60.0-200.0) Est GFR (CKD-EPI)NonAf (60.0-200.0) Glucose (70-110) mg/dL POC Glucose (mg/dL) 128 H 261 H (75-99) mg/dL 06/11/20 06/11/20 Range/Units 06:19 11:05 WBC (4.50-10.00) X 10*3/uL RBC (4.10-5.20) X 10*6/uL Hgb (12.0-15.0) g/dL Hct (37.2-46.3) % MCHC (32.0-37.0) g/dL RDW (11.5-14.5) % Immature Gran # (0.00-0.04) X 10*3/uL Neutrophils # (1.80-7.70) X 10*3/uL Eosinophils # (0.04-0.35) X 10*3/uL BUN 49.0 H (9.0-27.0) mg/dL Creatinine 4.0 H (0.6-1.5) mg/dL Est GFR (CKD-EPI)AfAm 11.4 L (60.0-200.0) Est GFR (CKD-EPI)NonAf 9.9 L (60.0-200.0) Glucose 42 L* (70-110) mg/dL POC Glucose (mg/dL) 106 H (75-99) mg/dL Microbiology - Last 24 Hours (Table) 06/09/20 16:30 Blood Culture - Preliminary Blood No Growth after 24 hours 06/09/20 16:45 Blood Culture - Preliminary Blood No Growth after 24 hours Diabetes panel 06/11/20 Range/Units 06:19 Sodium 137 (135-145) mmol/L Potassium 3.7 (3.5-5.5) mmol/L Chloride 102 (96-109) mmol/L Carbon Dioxide 25.6 (21.6-31.8) mmol/L BUN 49.0 H (9.0-27.0) mg/dL Creatinine 4.0 H (0.6-1.5) mg/dL Glucose 42 L* (70-110) mg/dL Calcium 9.2 (8.7-10.3) mg/dL Calcium panel 06/11/20 Range/Units 06:19 Calcium 9.2 (8.7-10.3) mg/dL Pituitary panel 06/11/20 Range/Units 06:19 Sodium 137 (135-145) mmol/L Potassium 3.7 (3.5-5.5) mmol/L Chloride 102 (96-109) mmol/L Carbon Dioxide 25.6 (21.6-31.8) mmol/L BUN 49.0 H (9.0-27.0) mg/dL Creatinine 4.0 H (0.6-1.5) mg/dL Glucose 42 L* (70-110) mg/dL Calcium 9.2 (8.7-10.3) mg/dL Adrenal panel 06/11/20 Range/Units 06:19 Sodium 137 (135-145) mmol/L Potassium 3.7 (3.5-5.5) mmol/L Chloride 102 (96-109) mmol/L Carbon Dioxide 25.6 (21.6-31.8) mmol/L BUN 49.0 H (9.0-27.0) mg/dL Creatinine 4.0 H (0.6-1.5) mg/dL Glucose 42 L* (70-110) mg/dL Calcium 9.2 (8.7-10.3) mg/dL
--- NOTE | 2020-06-11 15:10 | P.PCN ---
Description of Procedure: Preop diagnoses is acute chronic renal failure with the infected pericardial dialysis catheter Postoperative is same Procedure patient brought to the Cath right side of the chest and neck was prepped and draped applied usual sterile manner 1% lidocaine for infected ultrasound-guided micropuncture puncture introducer arterial vein. A micropuncture guidewire was passed and 4-[place] dilators from the top of the guidewire. Then we passed a regular guidewire under fluoroscopy control guide was parked at the inferior vena cava. Then tunnel was created through the terminal be brought callus catheter was then checked the incision site. Then the dilator was advanced top of the guidewire. Then we passed a she's on the top of guidewire through the sheath we did do dialysis catheter sheath was removed tip of catheter superior vena cava atrial junction. Flushed with heparin saline and Hep-Lock secured with 3-0 nylon dressing applied patient are to the procedure well plan is chest x-ray
--- NOTE | 2020-06-11 15:35 | XR ---
EXAMINATION TYPE: XR chest 1V DATE OF EXAM: 06/11/2020 COMPARISON: 06/09/2020 INDICATION: Status post dialysis catheter insertion TECHNIQUE: Single frontal view of the chest is obtained. FINDINGS: The heart size is enlarged. The pulmonary vasculature is normal. The lungs are clear. IMPRESSION: 1. No acute pulmonary process.
--- NOTE | 2020-06-11 15:44 | IR ---
Fluoroscopy HISTORY: Central venous catheter placement 9.9 minutes fluoroscopy time supplied to the referring clinician. 270 intraoperative C-arm images do cument the procedure. See dictated report from vascular surgery.
[2020-06-11 17:05] LABS: Glucose,Whole Blood 81 mg/dL (75-99)
[2020-06-11 20:29] LABS: Glucose,Whole Blood 139 mg/dL (75-99)
[2020-06-11] MEDS: INSULIN DETEMIR (LEVEMIR) 100 UNIT/ML SYR SQ SCH (20:53)
--- NOTE | 2020-06-11 21:15 | PN ---
PROGRESS NOTE DATE OF SERVICE: 06/11/2020 INTERVAL HISTORY: This is an 80-year-old woman who was admitted with severe abdominal pain, possible acute peritonitis, being closely monitored at this time. The patient underwent a PermCath placement insertion by Dr. Hicks. Otherwise, the patient is on broad- spectrum IV antibiotics. Cultures are negative so far. The patient also has hypoglycemia. PAST MEDICAL HISTORY: Reviewed. REVIEW OF SYSTEMS: CARDIOVASCULAR: No angina. RESPIRATORY: As mentioned earlier. GI: As mentioned earlier. : No dysuria. NERVOUS SYSTEM: No numbness or weakness. CURRENT MEDS: Reviewed and include Tylenol, [place], Dilaudid, Levemir, Synthroid, Lopressor. PHYSICAL EXAM: GENERAL: Patient is alert and oriented times three. VITAL SIGNS: Pulse 61, blood pressure 157/66, respirations 16, temperature 97.8, pulse ox 91% on room air. HEENT: Conjunctivae normal. Oral mucosa moist. NECK: No jugular venous distention. No carotid bruits. No lymph node enlargement. RESPIRATORY: Breath sounds diminished at the bases. No rhonchi, no crackles. HEART: S1 and S2, muffled. ABDOMEN: Soft, no tenderness. No masses palpable. EXTREMITIES: No edema, no swelling. NERVOUS: No focal deficits. LAB STUDIES: WBC 11.3, hemoglobin 10.1, creatinine is 4. Glucose noted. ASSESSMENT: 1. Abdominal pain with acute peritonitis turbid dialysis fluid with possible early sepsis, present on admission. 2. Chronic kidney disease, end-stage renal disease, on peritoneal dialysis. 3. Status post PermCath placement. 4. Possible inflammation of the cecum and typhlitis, present on admission. 5. Increased WBC. 6. History of coronary artery disease. 7. Diabetes mellitus type 2. 8. Hypertension. 9. Hyperlipidemia. 10.History of coronary artery disease with coronary artery bypass graft. 11.History of cardiac valve replacement. 12.Obesity with body mass index of 30. 13.FULL CODE. RECOMMENDATIONS AND DISCUSSION: Continue current medications, continue symptomatic treatment, continue with antibiotics. Continue rest of medications. Closely follow with Surgery and as well as Vascular Surgery. Infectious Disease also seen the patient to adjust antibiotics. Otherwise peritoneal catheter will be removed by Dr. Ruiz. Guarded prognosis. Further recommendations to follow. MMODL / IJN: [id number] /
[2020-06-11 21:35] LABS: Hepatitis A Antibody IgM Non-Reactive (Non-Reactive); Hepatitis B Core IgM Non-Reactive (Non-Reactive); Hepatitis B Surface Antigen Non-Reactive (Non-Reactive); Hepatitis C IgG Antibody Non-Reactive (Non-Reactive)
--- NOTE | 2020-06-11 23:53 | PN ---
PROGRESS NOTE DATE OF SERVICE: 06/11/2020 REASON FOR FOLLOWUP: PT catheter insertion, peritonitis. INTERVAL HISTORY: The patient is currently afebrile. She is complaining of abdominal pain, though has decreased in intensity. The patient denies any chest pain, shortness of breath or cough. No nausea, vomiting or diarrhea. PHYSICAL EXAMINATION: Blood pressure 171/74 with a pulse of 81, temperature 98.2. She is 92% on room air. General description is an elderly female up in the chair in no distress. Respiratory system: Unlabored breathing, clear to auscultation anteriorly. Heart S1, S2 regular rate and rhythm. Abdomen soft, no tenderness. LABORATORY STUDIES: Hemoglobin 10.1, white count 11.16, creatinine 4.0. Blood culture so far negative. DIAGNOSTIC IMPRESSION AND PLAN: Patient with PD catheter insertion with peritonitis with marked functioning of the PD catheter of the same. The patient is covered with vancomycin to continue while waiting for the culture to finalize. Continue supportive care. MMODL / IJN: [id number] /
[2020-06-12] MEDS: ACETAMINOPHEN TAB 325 MG TAB PO PRN (01:33)
[2020-06-12] MEDS: LEVOTHYROXINE 75 MCG TAB PO SCH (03:46)
[2020-06-12 07:08] LABS: Anisocytosis Slight; Basophils % (A) 0 %; Eosinophils # (A) 0.8 k/uL (0-0.7); Eosinophils % (A) 6 %; HCT 32.3 % (34.0-46.0); HGB 10.7 gm/dL (11.4-16.0); Lymphocytes # (A) 0.9 k/uL (1.0-4.8); Lymphocytes % (A) 7 %; MCH 29.3 pg (25.0-35.0); MCHC 33.2 g/dL (31.0-37.0); MCV 88.2 fL (80.0-100.0); Mean Platelet Volume 8.7; Monocytes # (A) 0.7 k/uL (0-1.0); Monocytes % (A) 5 %; Neutrophils # (A) 9.9 k/uL (1.3-7.7); Neutrophils % (A) 80 %; Platelet Count 303 k/uL (150-450); RBC 3.66 m/uL (3.80-5.40); RDW 16.6 % (11.5-15.5); WBC 12.4 k/uL (3.8-10.6)
[2020-06-12 07:30] LABS: African American GFR (CKD) 16 (>60 ml/min/1.73 sqM); Anion Gap 6 mmol/L; Blood Urea Nitrogen 24 mg/dL (7-17); Calcium 8.9 mg/dL (8.4-10.2); Carbon Dioxide 28 mmol/L (22-30); Chloride 101 mmol/L (98-107); Glucose 158 mg/dL (74-99); Magnesium 1.6 mg/dL (1.6-2.3); Non-African American GFR(CKD) 14 (>60 ml/min/1.73 sqM); Phosphorus 3.5 mg/dL (2.5-4.5); Potassium 3.9 mmol/L (3.5-5.1); Sodium 135 mmol/L (137-145)
[2020-06-12 07:55] LABS: Glucose,Whole Blood 146 mg/dL (75-99)
[2020-06-12] MEDS: PANTOPRAZOLE 40 MG TABLET PO SCH (08:31)
[2020-06-12] MEDS: METOPROLOL TARTRATE 50 MG TAB PO SCH ×2 (08:31→23:27)
[2020-06-12] MEDS: metOLazone 5 MG TAB PO SCH (08:31)
[2020-06-12] MEDS: HEPARIN SODIUM,PORCINE/PF 5,000 UNIT/0.5 ML SYRINGE SQ SCH ×2 (08:32→23:27)
[2020-06-12] MEDS: INSULIN ASPART (NovoLOG) 100 UNIT/ML VIAL SQ SCH ×4 (09:15→23:27)
--- NOTE | 2020-06-12 09:40 | P.PN ---
Subjective Patient is seen in follow-up for end-stage renal disease. Unable to tolerate peritoneal dialysis exchanges due to significant pain. Currently on IV antibiotics for peritonitis. Oral intake fair. No chest pain or shortness of breath. She tolerated hemodialysis well yesterday. Vital signs are stable. General: The patient appeared well nourished and normally developed. HEENT: Head exam is unremarkable. Neck is without jugular venous distension. LUNGS: Breath sounds decreased. HEART: Rate and Rhythm are regular. ABDOMEN: Soft, mild generalized tenderness. EXTREMITITES: No edema. Objective - Vital Signs Vital signs: Vital Signs Temp 98.1 F 06/12/20 06:47 Pulse 75 06/12/20 09:07 Resp 16 06/12/20 09:07 BP 149/65 06/12/20 06:47 Pulse Ox 94 L 06/12/20 08:11 Intake & Output 06/11/20 06/12/20 06/12/20 18:59 06:59 18:59 Intake Total 1115 600 Output Total 300 Balance 1115 600 -300 Weight 81.5 kg Intake: IV 50 Intake, IV Titration 345 Amount Cefepime 2 gm In Sodium 100 Chloride 0.9% 100 ml @ 25 mls/hr IVPB [facility] Rx# :[id number] Sodium Chloride 0.9% 1, 120 000 ml @ 20 mls/hr IV . Q24H [facility] Rx#:[id number] Vancomycin 1,500 mg In 125 Sodium Chloride 0.9% 250 ml @ 125 mls/hr IVPB ONCE ONE Rx#:[id number] Oral 720 600 Output: Urine 300 Other: Voiding Method Toilet Toilet # Voids 3 1 1 - Labs CBC & Chem 7: 06/12/20 06:29 06/12/20 06:29 Labs: Abnormal Lab Results - Last 24 Hours (Table) 06/11/20 06/11/20 06/11/20 Range/Units 06:19 06:19 11:05 WBC 11.16 H (4.50-10.00) X 10*3/uL RBC 3.56 L (4.10-5.20) X 10*6/uL Hgb 10.1 L (12.0-15.0) g/dL Hct 32.7 L (37.2-46.3) % MCHC 30.9 L (32.0-37.0) g/dL RDW 16.7 H (11.5-14.5) % Immature Gran # 0.23 H (0.00-0.04) X 10*3/uL Neutrophils # 8.52 H (1.80-7.70) X 10*3/uL Lymphocytes # (1.0-4.8) k/uL Eosinophils # 0.49 H (0.04-0.35) X 10*3/uL Sodium (137-145) mmol/L BUN 49.0 H (9.0-27.0) mg/dL Creatinine 4.0 H (0.6-1.5) mg/dL Est GFR (CKD-EPI)AfAm 11.4 L (60.0-200.0) Est GFR (CKD-EPI)NonAf 9.9 L (60.0-200.0) Glucose 42 L* (70-110) mg/dL POC Glucose (mg/dL) 106 H (75-99) mg/dL 06/11/20 06/12/20 06/12/20 Range/Units 20:24 06:29 06:29 WBC 12.4 H (4.50-10.00) X 10*3/uL RBC 3.66 L (4.10-5.20) X 10*6/uL Hgb 10.7 L (12.0-15.0) g/dL Hct 32.3 L (37.2-46.3) % MCHC (32.0-37.0) g/dL RDW 16.6 H (11.5-14.5) % Immature Gran # (0.00-0.04) X 10*3/uL Neutrophils # 9.9 H (1.80-7.70) X 10*3/uL Lymphocytes # 0.9 L (1.0-4.8) k/uL Eosinophils # 0.8 H (0.04-0.35) X 10*3/uL Sodium 135 L (137-145) mmol/L BUN 24 H (9.0-27.0) mg/dL Creatinine 3.00 H (0.6-1.5) mg/dL Est GFR (CKD-EPI)AfAm (60.0-200.0) Est GFR (CKD-EPI)NonAf (60.0-200.0) Glucose 158 H (70-110) mg/dL POC Glucose (mg/dL) 139 H (75-99) mg/dL 06/12/20 Range/Units 07:51 WBC (4.50-10.00) X 10*3/uL RBC (4.10-5.20) X 10*6/uL Hgb (12.0-15.0) g/dL Hct (37.2-46.3) % MCHC (32.0-37.0) g/dL RDW (11.5-14.5) % Immature Gran # (0.00-0.04) X 10*3/uL Neutrophils # (1.80-7.70) X 10*3/uL Lymphocytes # (1.0-4.8) k/uL Eosinophils # (0.04-0.35) X 10*3/uL Sodium (137-145) mmol/L BUN (9.0-27.0) mg/dL Creatinine (0.6-1.5) mg/dL Est GFR (CKD-EPI)AfAm (60.0-200.0) Est GFR (CKD-EPI)NonAf (60.0-200.0) Glucose (70-110) mg/dL POC Glucose (mg/dL) 146 H (75-99) mg/dL Microbiology - Last 24 Hours (Table) 06/09/20 16:30 Blood Culture - Preliminary Blood No Growth after 48 hours 06/09/20 16:45 Blood Culture - Preliminary Blood No Growth after 48 hours Assessment and Plan Plan: Assessment: 1. End-stage renal disease maintained on peritoneal dialysis. 2. CAPD peritonitis. Patient's dialysate culture was positive for staph aureus. 3. Inability to drain and abdominal pain. Catheter was flushed with heparin and also locked with Cathflo. No constipation. Likely due to peritonitis. 4. Anemia of chronic kidney disease. Hgb at goal. 5. Diabetes mellitus. Plan: Maintain IV vancomycin. Infectious disease following. PD catheter to be removed today. Plan for hemodialysis again today. She will be maintained on a Monday schedule. Follow up cultures. Will reconsider peritoneal dialysis down the road once peritonitis treatment completed.
[2020-06-12] MEDS ORDERED: SODIUM CHLORIDE 0.9% 1,000 ML IV ONE (12:40)
[2020-06-12 12:49] LABS: Glucose,Whole Blood 145 mg/dL (75-99)
[2020-06-12] MEDS ORDERED: PHENYLEPHRINE-0.9% NACL SYG 1,000 MCG/10 ML SYRINGE ONE (13:50)
[2020-06-12] MEDS ORDERED: ONDANSETRON 4 MG/2 ML VIAL ONE (13:50)
[2020-06-12] MEDS ORDERED: PROPOFOL 10 MG/ML 20 ML VIAL IV ONE (13:50)
[2020-06-12] MEDS ORDERED: LIDOCAINE 1% INJ 10MG/ML (20 ML MDV) ONE (13:50)
[2020-06-12] MEDS ORDERED: HEPARIN SODIUM,PORCINE 5,000 UNIT/ML 1 ML VIAL ONE (13:50)
[2020-06-12] MEDS ORDERED: fentaNYL (PF) 50 MCG/ML 2 ML AMP ONE (13:50)
[2020-06-12] MEDS ORDERED: BUPIVACAINE (PF) 0.25% 30 ML VIAL SQ ONE ×2 (14:14)
[2020-06-12] MEDS ORDERED: SODIUM CHLORIDE 0.9% 250 ML with VANCOMYCIN 1,000 MG IV ONE ×2 (14:17)
--- NOTE | 2020-06-12 14:39 | P.OP ---
Date of Procedure: 06/12/20 Preoperative Diagnosis: Peritonitis Postoperative Diagnosis: Peritonitis Procedure(s) Performed: Removal of CAPD catheter Anesthesia: MARILU Surgeon: King Ruiz Estimated Blood Loss (ml): 5 Pathology: other (CAPD catheter for culture) Condition: stable Disposition: PACU Description of Procedure: Patient's placed on the operative table in supine position. She received general anesthesia. Her abdomen was prepped and draped usual fashion. A skin incision was made over the CPV insertion site. The Velcro cuff was found. Using left cautery the CP catheter was tested with fashion. The catheter was then removed from the peritoneal cavity. The tip the catheter was sent for culture. The fascial defect was then closed with 0 Vicryl suture. Next a subcutaneous pedicle cough was dissected free and the catheter was withdrawn. The skin was closed interrupted 3-0 Monocryl suture. Dermabond was applied. Patient top she will was sent to recovery room stable condition.
[2020-06-12] MEDS ORDERED: HYDROmorphone 0.5 MG/0.5 ML SYRINGE IVP ONE ×2 (14:59→15:04)
[2020-06-12] MEDS: SODIUM CHLORIDE 0.9% 1,000 ML IV SCH (17:11)
[2020-06-12 17:51] LABS: Glucose,Whole Blood 125 mg/dL (75-99)
[2020-06-12] MEDS ORDERED: VANCOMYCIN 1,500 MG in SODIUM CHLORIDE 0.9% 250 ML IVPB ONE (18:00)
--- NOTE | 2020-06-12 18:58 | PN ---
PROGRESS NOTE DATE OF SERVICE: 06/12/2020 REASON FOR FOLLOWUP: PD catheter-associated peritonitis, MSSA. INTERVAL HISTORY: The patient is currently afebrile. The patient did get a dialysis catheter yesterday and got dialyzed and did have removal of the PD catheter today. The patient tolerated the procedure. The patient denies having any chest pain, shortness of breath or cough. No nausea, no vomiting, no diarrhea. PHYSICAL EXAMINATION: Blood pressure 147/64, pulse of 70, temperature 99.1. She is 96% on 2 L nasal cannula. General description is an elderly female lying in bed in no distress. RESPIRATORY SYSTEM: Unlabored breathing. Clear to auscultation anteriorly. HEART: S1, S2. Regular rate and rhythm. ABDOMEN: Soft. No tenderness. LABS: Hemoglobin is 10.7, white count 12.4 with a BUN of 24, creatinine 3.0. Blood culture has been negative. DIAGNOSTIC IMPRESSION AND PLAN: Patient with a PD catheter-associated peritonitis. Culture positive for MSSA. The patient does have PENICILLIN and SULFA ALLERGY and is a dialysis patient. She will be advised vancomycin, Pharmacy to dose, through dialysis for 3 weeks and close outpatient followup with the radio repairman. Prescription provided to the assistant case manager working on discharge. MMODL / IJN: [id number] /
[2020-06-12] MEDS ORDERED: IPRATROPIUM-ALBUTEROL 3 ML NEB INHALATION STA (19:49)
[2020-06-12] MEDS ORDERED: IPRATROPIUM-ALBUTEROL 3 ML NEB INHALATION PRN (19:49)
[2020-06-12 20:13] LABS: Anisocytosis Slight; HCT 32.1 % (34.0-46.0); HGB 10.8 gm/dL (11.4-16.0); MCH 30.1 pg (25.0-35.0); MCHC 33.6 g/dL (31.0-37.0); MCV 89.4 fL (80.0-100.0); Mean Platelet Volume 8.8; Platelet Count 297 k/uL (150-450); RBC 3.59 m/uL (3.80-5.40); RDW 16.5 % (11.5-15.5); WBC 18.8 k/uL (3.8-10.6)
[2020-06-12 20:17] LABS: Albumin/Globulin Ratio 0.9; Chloride 102 mmol/L (98-107); Globulin 3.2 g/dL; Glucose 186 mg/dL (74-99); Potassium 3.8 mmol/L (3.5-5.1); Sodium 135 mmol/L (137-145); Total Protein 6.2 g/dL (6.3-8.2)
[2020-06-12 20:18] LABS: ALT 15 U/L (4-34); AST 33 U/L (14-36); African American GFR (CKD) 32 (>60 ml/min/1.73 sqM); Alkaline Phosphatase 104 U/L (38-126); Anion Gap 7 mmol/L; Blood Urea Nitrogen 11 mg/dL (7-17); Calcium 8.6 mg/dL (8.4-10.2); Carbon Dioxide 26 mmol/L (22-30); Magnesium 1.6 mg/dL (1.6-2.3); Non-African American GFR(CKD) 28 (>60 ml/min/1.73 sqM); Total Bilirubin 0.4 mg/dL (0.2-1.3)
--- NOTE | 2020-06-12 20:36 | XR ---
EXAMINATION TYPE: XR chest 1V portable DATE OF EXAM: 06/12/2020 COMPARISON: 06/11/2020 HISTORY: Short of breath TECHNIQUE: FINDINGS: There is some pulmonary interstitial edema. Heart is enlarged. There are sternal wires. The re is right central venous catheter with tip in the superior vena cava. IMPRESSION: There is some pulmonary interstitial edema which is increased compared to yesterday.
[2020-06-12 20:39] LABS: Glucose,Whole Blood 198 mg/dL (75-99)
--- NOTE | 2020-06-12 22:48 | PN ---
PROGRESS NOTE DATE OF SERVICE: 06/12/2020 HISTORY OF PRESENT ILLNESS: This 80-year-old woman who was admitted with peritonitis, had hemodialysis today. The patient was slated to go home today, but subsequently patient complaining of severe shortness of breath and the patient being closely monitored. There is no history of fever, rigors or chills. No history of headache, loss of consciousness or seizures. PAST MEDICAL HISTORY: Reviewed. REVIEW OF SYSTEMS: CARDIOVASCULAR system: No angina or palpitations. RESPIRATORY: As mentioned earlier. GI: As mentioned earlier. : As mentioned earlier. NERVOUS SYSTEM: No numbness or weakness. CURRENT MEDICATIONS: Reviewed and include: Tylenol, [place], Dilaudid, Levemir, Synthroid. Doses reviewed. PHYSICAL EXAM: Patient is alert, oriented x3. Pulse is 101. Blood pressure 140/90. Respirations 18. Temperature normal. Pulse ox 98% on 2 L. HEENT: Conjunctivae normal. NECK: No JVD. CARDIOVASCULAR: S1, S2 muffled. RESPIRATORY SYSTEM: Breath sounds diminished at the bases. A few scattered rhonchi and crackles. ABDOMEN: Soft, obese, nontender. LEGS are no edema. No swelling. NERVOUS SYSTEM: No focal deficits. LABS: WBC 12.5, hemoglobin 10.7 and sodium is 135, potassium 3.9, creatinine 3, glucose noted. ASSESSMENT: 1. Acute peritonitis with sepsis present on admission. 2. Shortness of breath post dialysis for evaluation, rule out fluid overload. 3. Chronic kidney disease, end-stage renal disease on peritoneal dialysis converted to hemodialysis today. 4. Status post PermCath placement left chest. 5. Possible inflammation of the cecum and typhlitis present on admission. 6. Increased WBC. 7. History of coronary artery disease. 8. Diabetes mellitus type 2. 9. Hypertension. 10.Hyperlipidemia. 11.History of coronary artery disease, coronary artery bypass grafting. 12.History of cardiac valve replacement. 13.Obesity with body mass index of 30. 14.FULL CODE. RECOMMENDATIONS AND DISCUSSION: Continue current medications, management and symptomatic treatment. Otherwise, at this time, portable chest x-ray and repeat labs will be ordered in the morning. Otherwise, closely follow with multiple consultants. Continue the antibiotics. Prognosis guarded. Further recommendations to follow. MMODL / IJN: [id number] /
--- NOTE | 2020-06-12 23:20 | CT ---
EXAMINATION TYPE: CT angio chest DATE OF EXAM: 06/12/2020 COMPARISON: None HISTORY: Possible PE, SOB, elevated d-dimer. Pt labs GFR-28 C-1.72 B-11. Spoke to RN Vickie about poor labs. She said Dr. Hanson, nephrology, approved the test and the RN indicated the patient shoul d be getting dialysis tomorrow. CT DLP: 399.10 mGycm Automated exposure control for dose reduction was used. CONTRAST: Performed with IV Contrast, patient injected with 80 mL of Isovue 370. Images obtained from the thoracic inlet to the diaphragm with IV contrast. There are 3-D post process ed images. FINDINGS: There is coarse interstitial and airspace density in both lungs in the upper and lower lobes. There a re small bilateral pleural effusions. Heart is enlarged. There is no pericardial effusion. There are some enlarged right bronchial and mediastinal lymph nodes. Lymph nodes measure up to 2 cm. Thoracic aorta is intact. The ascending aorta measures 3.2 cm. There is no dissection. There is previ ous surgery at the aortic valve. There are sternal wires. I see no filling defect in the pulmonary ar teries. The thoracic spine is intact. There is no compression fracture. IMPRESSION: No evidence of pulmonary embolism. Bilateral pulmonary infiltrates and atelectasis. Small pleural effusions. This could relate to combin ed pneumonia and congestive heart failure. Mediastinal and right bronchial adenopathy.
--- NOTE | 2020-06-12 23:24 | DS ---
DISCHARGE SUMMARY DATE OF SERVICE: 06/12/2020 FINAL DIAGNOSES: 1. Abdominal pain with acute peritonitis, possibly early sepsis, present on admission, improved. 2. Chronic kidney disease, end-stage renal disease, on peritoneal dialysis. 3. Status post PermCath placement. 4. Possible inflammation in the cecum and colitis, present on admission, improved. 5. Increased white count. 6. History of coronary artery disease. 7. Diabetes mellitus, type 2. 8. Hypertension. 9. Hyperlipidemia. 10.Coronary artery disease, coronary artery bypass grafting. 11.History of cardiac valve replacement. 12.Obesity with body mass index of 36. 13.FULL CODE. DISCHARGE DISPOSITION: The patient will be discharged in stable condition with guarded prognosis. Total time taken 35 minutes. HISTORY OF PRESENT ILLNESS: This 80-year-old woman with a past medical history of multiple medical problems was admitted with abdominal pain and features of peritonitis. Patient was treated with broad-spectrum IV antibiotics. Patient improved significantly. The patient was also suspected to have inflammation of the sacral region. Surgery saw the patient as well as Infectious Disease. Cultures were negative so far. The patient had peritoneal dialysis catheter removed and PermCath inserted. The patient improved significantly. The patient tolerated the hemodialysis well. The patient will be discharged in stable condition with guarded prognosis after clearance from the multiple physicians. On exam, vitals are stable. CARDIOVASCULAR SYSTEM: S1, S2 muffled. ABDOMEN: Soft. NERVOUS SYSTEM: No focal deficit. DISCHARGE ADVICE AND MEDICATIONS: 1. Diet is cardiac. 2. Activity limited until followup. 3. Follow up with Dr. Lacey in 2-3 days. 4. Follow up with Infectious Disease and Nephrology as recommended. 5. Calcitriol 0.5 daily. 6. Demadex 20 mg p.o. b.i.d. 7. Lantus 50 units subcutaneously at bedtime. 8. Lopressor 100 mg p.o. b.i.d. 9. Plavix 75 mg p.o. daily. 10.Synthroid 150 mcg p.o. daily. 11.Zaroxolyn p.o. daily. 12.Protonix 40 mg daily. 13.Tylenol p.r.n. 14.Antibiotics per Infectious Disease. MMODL / IJN: [id number] / [facility]
[2020-06-12] MEDS: INSULIN DETEMIR (LEVEMIR) 100 UNIT/ML SYR SQ SCH (23:27)
[2020-06-13 00:19] LABS: Hepatitis B Surface AB- Quant 4.9 mIU/mL; Hepatitis B Surface Antibody Non-Reactive (Non-Reactive)
[2020-06-13 05:21] VITALS: TEMP 98.4
[2020-06-13] MEDS: LEVOTHYROXINE 75 MCG TAB PO SCH (05:45)
[2020-06-13 07:14] LABS: Glucose,Whole Blood 153 mg/dL (75-99)
[2020-06-13] MEDS: INSULIN ASPART (NovoLOG) 100 UNIT/ML VIAL SQ SCH ×2 (08:33→13:17)
[2020-06-13] MEDS: PANTOPRAZOLE 40 MG TABLET PO SCH (08:39)
[2020-06-13] MEDS: HEPARIN SODIUM,PORCINE/PF 5,000 UNIT/0.5 ML SYRINGE SQ SCH ×2 (08:39→12:39)
[2020-06-13] MEDS: metOLazone 5 MG TAB PO SCH (08:39)
[2020-06-13 08:58] LABS: Basophils # (A) 0.07 X 10*3/uL (0.00-0.10); Basophils % (A) 0.5 %; HCT 29.7 % (37.2-46.3); Lymphocytes # (A) 1.25 X 10*3/uL (0.90-5.00); Lymphocytes % (A) 8.4 %; MCHC 30.3 g/dL (32.0-37.0); MCV 92.2 fL (80.0-97.0); Mean Platelet Volume 11.7 fL (9.5-12.2); Monocytes % (A) 10.1 %; Neutrophils # (A) 11.58 X 10*3/uL (1.80-7.70); Platelet Count 282 X 10*3/uL (140-440); RBC 3.22 X 10*6/uL (4.10-5.20); WBC 14.85 X 10*3/uL (4.50-10.00)
[2020-06-13 09:35] LABS: African American GFR (CKD) 18.4 (60.0-200.0); Anion Gap 8.5 mmol/L (4.00-12.00); BUN/Creat Ratio 6.3 Ratio (12.00-20.00); Carbon Dioxide 27.5 mmol/L (21.6-31.8); Non-African American GFR(CKD) 15.9 (60.0-200.0); Potassium 3.9 mmol/L (3.5-5.5)
--- NOTE | 2020-06-13 11:16 | P.CNPUL ---
History of Present Illness Consult date: 06/13/20 Requesting physician: Ap Lee Reason for consult: dyspnea, hypoxemia Chief complaint: Shortness of breath with low saturations. History of present illness: This is an 80-year-old female who presented to the emergency department on June 09. She came with concerns of a nonfunctioning peritoneal dialysis catheter. In addition, she was having pain in the abdomen, and the fluid that was coming out of the dialysis catheter was cloudy. For that reason she was evaluated. There was some concern for peritonitis. Eventually, the peritoneal dialysis catheter was removed by Dr. Ruiz, and a hemodialysis catheter was placed by Dr. Hicks. The patient was given antibiotics in the form of cefepime and vancomycin and she was ready for discharge yesterday but apparently developed some shortness of breath and low saturations. A chest x-ray apparently showed some interstitial edema, and a computed tomography scan was negative for PE, and also showed what appeared to be some fluid overload. Unfortunately, I am not able to look at the x-rays at this time myself. I will only reading from the reports. Anyway when I went into the room, the patient was not receiving any IV fluids, and she was on 5 L nasal we took the oxygen off of her, and on room air, she was 97-90%. She was asymptomatic. She was not having any shortness of breath. She felt back to normal. She has a history of coronary artery disease, diabetes mellitus, hyperlipidemia, hypertension, chronic kidney disease, and 2 years of peritoneal dialysis. She has also had valve replacement, and bypass grafting. She is a lifelong nonsmoker. She denies prior history of lung issues. Most recent laboratory data shows a white count of 4.85, hemoglobin 9, hematocrit 29.7, and a platelet count of 282,000. D-dimer was 8.55. Sodium potassium chloride CO2 all normal. Anion gap 9, BUN 17, and creatinine 2.7. Yesterday's N-terminal proBNP was 14,100, which is consistent with a fluid overload state, likely causing her to be short of breath with low saturations. So far, blood and catheter tip cultures are negative. Review of Systems REVIEW OF SYSTEMS: CONSTITUTIONAL: [Negative.] NEUROLOGIC: [ Negative.] HEENT: [ Negative.] CARDIAC: [Negative.] PULMONARY: [Negative.] GI: Abdominal pain. : [Negative.] RHEUMATOLOGIC: [ Negative.] IMMUNOLOGIC: [ Negative.] ENDOCRINE: [Negative. ] DERMATOLOGIC: [Negative.] Past Medical History Past Medical History: Coronary Artery Disease (CAD), Diabetes Mellitus, GI Bleed, Hyperlipidemia, Hypertension, Osteoarthritis (OA), Pneumonia, Renal Disease, Thyroid Disorder Additional Past Medical History / Comment(s): IDDM type II, neuropathy bilateral feet, ESRD/peritoneal dialysis x 3 years, UTI in past, pneumonia as a child, arthritis in bilateral hands, gastric ulcer, lower GI bleed with transfusions, past would "miss a heartbeat once in awhile", hypothyroid. History of Any Multi-Drug Resistant Organisms: None Reported Past Surgical History: Cardiac Valve Replacement, Coronary Bypass/CABG, Heart Catheterization, Heart Catheterization With Stent Additional Past Surgical History / Comment(s): 2018 CABG 3 vessels with valve replacement at [facility], peritoneal dialysis catheter, EGDs, colonoscopies, thyroidectomy d/t precancerous, bilateral cataract removal/lens implants. Additional Past Anesthesia/Blood Transfusion Reaction / Comment(s): Sometimes slow to wake. Pt has received blood in past without reaction. Date of Last Stent Placement:: 2015 Smoking Status: Never smoker - Past Family History Father Family Medical History: Myocardial Infarction ([place]) Additional Family Medical History / Comment(s): Father of a [place] at the age of 65yrs. Mother Family Medical History: CVA/TIA Additional Family Medical History / Comment(s): Mother of a CVA at the age of 78yrs. Medications and Allergies Home Medications Medication Instructions Recorded Confirmed Type Clopidogrel [Plavix] 75 mg PO DAILY 06/09/20 06/09/20 History Insulin Glargine [Lantus] 50 unit SQ HS 06/09/20 06/09/20 History Levothyroxine Sodium [Synthroid] 150 mcg PO DAILY 06/09/20 06/09/20 History Metoprolol Tartrate [Lopressor] 100 mg PO BID 06/09/20 06/09/20 History metOLazone [Zaroxolyn] 10 mg PO DAILY 06/09/20 06/09/20 History Torsemide [Demadex] 20 mg PO BID 06/10/20 06/10/20 History calcitrioL [Calcitriol] 0.5 mcg PO DAILY 06/10/20 06/10/20 History Acetaminophen Tab [Tylenol] 650 mg PO Q6HR PRN tab 06/12/20 Rx Pantoprazole [Protonix] 40 mg PO JUAN ALBERTO #20 tablet. 06/12/20 Rx Allergies Allergy/AdvReac Type Severity Reaction Status Date / Time levofloxacin [From Levaquin] Allergy Swelling Verified 06/12/20 12:25 Penicillins Allergy Swelling Verified 06/12/20 12:25 Sulfa (Sulfonamide Allergy Swelling Verified 06/12/20 12:25 Antibiotics) Physical Exam Osteopathic Statement: *. No significant issues noted on an osteopathic structural exam other than those noted in the History and Physical/Consult. Vitals: Vital Signs Temp Pulse Pulse Pulse Resp BP BP 06/13/20 05:00 98.4 F 77 18 107/67 06/12/20 20:04 95 18 06/12/20 20:00 18 06/12/20 19:57 95 20 06/12/20 19:49 97.8 F 94 20 185/73 06/12/20 19:44 17 06/12/20 19:43 16 06/12/20 19:30 16 06/12/20 18:39 101 H 18 143/93 06/12/20 15:15 70 16 147/64 06/12/20 15:00 74 14 165/94 06/12/20 14:45 73 16 161/89 06/12/20 14:37 99.1 F 85 16 139/74 06/12/20 12:35 98.5 F 82 16 165/84 06/12/20 12:29 98.2 F 81 19 161/69 Pulse Ox 06/13/20 05:00 96 06/12/20 20:04 06/12/20 20:00 06/12/20 19:57 06/12/20 19:49 93 L 06/12/20 19:44 93 L 06/12/20 19:43 80 L 06/12/20 19:30 75 L 06/12/20 18:39 06/12/20 15:15 96 06/12/20 15:00 98 06/12/20 14:45 92 L 06/12/20 14:37 96 06/12/20 12:35 95 06/12/20 12:29 93 L Intake and Output 06/12/20 06/13/20 06/13/20 22:59 06:59 14:59 Intake Total 1030 Output Total 1300 Balance -270 Intake: Intake, IV Titration 410 Amount Sodium Chloride 0.9% 1, 160 000 ml @ 20 mls/hr IV . Q24H PENDING SALE TO [facility] Rx#:[id number] Vancomycin 1,500 mg In 250 Sodium Chloride 0.9% 250 ml @ 125 mls/hr IVPB ONCE ONE Rx#:[id number] Oral 620 Output: Hemodialysis 1300 Other: Voiding Method Toilet # Voids 4 1 No acute distress, oriented 3. Room air saturation is 98%. No signs or symptoms of respiratory difficulty or distress. HEENT examination is grossly unremarkable. Mucous membranes are moist. No oral lesions. Neck supple. Full range of motion. No adenopathy thyromegaly or neck vein distention. Cardiovascular examination reveals regular rhythm rate. S1-S2 normal. No S3 or S4. No discernible murmur noted. Heart rate 77 bpm. Lungs reveal minimal bibasilar crackles. No wheezes or rhonchi. Breath sounds equal bilaterally. Abdomen soft bowel sounds are heard. No masses or tenderness. Extremities are intact. No cyanosis clubbing or edema. Skin is without rash or lesion. Neurologic examination is brief but nonfocal. Results - Laboratory Findings CBC and BMP: 06/13/20 05:57 06/13/20 05:57 PT/INR, D-dimer PT 10.6 sec (9.0-12.0) 06/09/20 17:01 INR 1.0 (<1.2) 06/09/20 17:01 D-Dimer 8.55 mg/L FEU (<0.60) H 06/12/20 19:51 Abnormal lab findings: Abnormal Labs 06/09/20 06/09/20 06/09/20 17:00 17:00 17:00 WBC 17.4 H RBC Hgb Hct MCHC RDW 16.7 H Immature Gran # Neutrophils # 14.8 H Lymphocytes # Monocytes # Eosinophils # D-Dimer Sodium BUN 44 H Creatinine 3.83 H Est GFR (CKD-EPI)AfAm Est GFR (CKD-EPI)NonAf BUN/Creatinine Ratio Glucose 134 H POC Glucose (mg/dL) Total Protein Albumin Urine Protein 1+ H Urine Blood Trace H 06/09/20 06/09/20 06/10/20 19:21 20:40 04:20 WBC 17.7 H RBC 3.67 L Hgb 10.4 L Hct 32.4 L MCHC RDW 16.5 H Immature Gran # Neutrophils # 16.4 H Lymphocytes # 0.4 L Monocytes # Eosinophils # D-Dimer Sodium BUN Creatinine Est GFR (CKD-EPI)AfAm Est GFR (CKD-EPI)NonAf BUN/Creatinine Ratio Glucose POC Glucose (mg/dL) 102 H 105 H Total Protein Albumin Urine Protein Urine Blood 06/10/20 06/10/20 06/10/20 04:20 05:59 11:51 WBC RBC Hgb Hct MCHC RDW Immature Gran # Neutrophils # Lymphocytes # Monocytes # Eosinophils # D-Dimer Sodium 135 L BUN 39 H Creatinine 3.96 H Est GFR (CKD-EPI)AfAm Est GFR (CKD-EPI)NonAf BUN/Creatinine Ratio Glucose 152 H POC Glucose (mg/dL) 158 H 114 H Total Protein 6.1 L Albumin 2.9 L Urine Protein Urine Blood 06/10/20 06/10/20 06/11/20 17:23 20:09 06:19 WBC 11.16 H RBC 3.56 L Hgb 10.1 L Hct 32.7 L MCHC 30.9 L RDW 16.7 H Immature Gran # 0.23 H Neutrophils # 8.52 H Lymphocytes # Monocytes # Eosinophils # 0.49 H D-Dimer Sodium BUN Creatinine Est GFR (CKD-EPI)AfAm Est GFR (CKD-EPI)NonAf BUN/Creatinine Ratio Glucose POC Glucose (mg/dL) 128 H 261 H Total Protein Albumin Urine Protein Urine Blood 06/11/20 06/11/20 06/11/20 06:19 11:05 20:24 WBC RBC Hgb Hct MCHC RDW Immature Gran # Neutrophils # Lymphocytes # Monocytes # Eosinophils # D-Dimer Sodium BUN 49.0 H Creatinine 4.0 H Est GFR (CKD-EPI)AfAm 11.4 L Est GFR (CKD-EPI)NonAf 9.9 L BUN/Creatinine Ratio Glucose 42 L* POC Glucose (mg/dL) 106 H 139 H Total Protein Albumin Urine Protein Urine Blood 06/12/20 06/12/20 06/12/20 06:29 06:29 07:51 WBC 12.4 H RBC 3.66 L Hgb 10.7 L Hct 32.3 L MCHC RDW 16.6 H Immature Gran # Neutrophils # 9.9 H Lymphocytes # 0.9 L Monocytes # Eosinophils # 0.8 H D-Dimer Sodium 135 L BUN 24 H Creatinine 3.00 H Est GFR (CKD-EPI)AfAm Est GFR (CKD-EPI)NonAf BUN/Creatinine Ratio Glucose 158 H POC Glucose (mg/dL) 146 H Total Protein Albumin Urine Protein Urine Blood 06/12/20 06/12/20 06/12/20 12:46 17:49 19:51 WBC 18.8 H RBC 3.59 L Hgb 10.8 L Hct 32.1 L MCHC RDW 16.5 H Immature Gran # Neutrophils # Lymphocytes # Monocytes # Eosinophils # D-Dimer Sodium BUN Creatinine Est GFR (CKD-EPI)AfAm Est GFR (CKD-EPI)NonAf BUN/Creatinine Ratio Glucose POC Glucose (mg/dL) 145 H 125 H Total Protein Albumin Urine Protein Urine Blood 06/12/20 06/12/20 06/12/20 19:51 19:51 20:38 WBC RBC Hgb Hct MCHC RDW Immature Gran # Neutrophils # Lymphocytes # Monocytes # Eosinophils # D-Dimer 8.55 H Sodium 135 L BUN Creatinine 1.72 H Est GFR (CKD-EPI)AfAm Est GFR (CKD-EPI)NonAf BUN/Creatinine Ratio Glucose 186 H POC Glucose (mg/dL) 198 H Total Protein 6.2 L Albumin 3.0 L Urine Protein Urine Blood 06/13/20 06/13/20 06/13/20 05:57 05:57 07:11 WBC 14.85 H RBC 3.22 L Hgb 9.0 L Hct 29.7 L MCHC 30.3 L RDW 17.0 H Immature Gran # 0.15 H Neutrophils # 11.58 H Lymphocytes # Monocytes # 1.50 H Eosinophils # D-Dimer Sodium BUN Creatinine 2.7 H Est GFR (CKD-EPI)AfAm 18.4 L Est GFR (CKD-EPI)NonAf 15.9 L BUN/Creatinine Ratio 6.30 L Glucose 163 H POC Glucose (mg/dL) 153 H Total Protein Albumin Urine Protein Urine Blood - Diagnostic Findings Chest x-ray: image reviewed CT scan - chest: image reviewed Assessment and Plan Assessment: Transient hypoxemia, secondary to fluid overload, resolved. No evidence of pulmonary embolism on CT angiogram. Nonfunctional peritoneal dialysis catheter, status post removal, and insertion of a hemodialysis catheter. End-stage renal disease, on peritoneal dialysis, for 2 years. History of CAD with previous bypass grafting and cardiac valve replacement. Diabetes mellitus. History of hyperlipidemia. History of hypertension. Lifelong nonsmoker, without prior evidence of pulmonary disease. Plan: Plan dated 06/13/2020. The patient was adamant about being discharged. The patient's oxygen was removed, and room air saturations were 97-98%. Clinically she looked well. She has no conversational dyspnea or use of accessory muscles. Her exam only showed some minimal bibasilar crackles. She is a lifelong nonsmoker. No prior history of any lung issues. From the pulmonary perspective, the patient could be discharged. The chest x-ray and computed tomography scan were reviewed. Time with Patient: Greater than 30
[2020-06-13 12:14] VITALS: BP 123/61; PULSE 75; RESP 17
[2020-06-13] MEDS: METOPROLOL TARTRATE 50 MG TAB PO SCH (12:39)
[2020-06-13 13:16] LABS: Glucose,Whole Blood 149 mg/dL (75-99)
--- NOTE | 2020-06-13 23:00 | DS ---
DISCHARGE SUMMARY ADDENDUM: DATE OF SERVICE: 06/13/2020. HISTORY OF PRESENT ILLNESS: This 80-year-old woman was admitted with significant ascites and significant peritonitis was treated with IV antibiotics. Patient improved significantly. Peritoneal dialysis catheter has been removed then and PermCath was instead and the patient arranged for hemodialysis in outpatient setting. The patient has shortness of breath history. Patient improved significantly. The patient had possible COPD exacerbation. The patient improved significantly. Patient being discharged in stable condition. Guarded prognosis. I have recommended updrafts to continue q.i.d. and incentive spirometry with . Because of severe COPD, the patient is having. GFR 44.9. Please refer to the previous dictation for list of medications and as well as the list of diagnoses. On exam: Vital signs are stable. Cardiovascular: S1, S2. Abdomen soft. Nervous system: No focal deficits. Chest CTA was noted. MMODL / IJN: [id number] / MTDD
== END 2020-06-13 14:45 | disposition home or self-care (01) | DRG 981 ==
LOC: EC 13:15 → 5NMEDONC 15:58
PROVIDERS: ADMIT Hospitalist; ATTEND Hospitalist
PROC: 0JH63XZ Insertion of Tunneled Vascular Access Device into Chest Subcutaneous Tissue and Fascia, Percutaneous Approach (ICD-10-PCS; 2020-06-11 12:35)
PROC: 02HV33Z Insertion of Infusion Device into Superior Vena Cava, Percutaneous Approach (ICD-10-PCS; 2020-06-11 12:35)
PROC: 5A1D70Z Performance of Urinary Filtration, Intermittent, Less than 6 Hours Per Day (ICD-10-PCS; 2020-06-11 12:35)
PROC: 0WPG0YZ Removal of Other Device from Peritoneal Cavity, Open Approach (ICD-10-PCS; principal; 2020-06-12 14:35)
DX: T85.71XA Infection and inflammatory reaction due to peritoneal dialysis catheter, initial encounter (principal); A41.9 Sepsis, unspecified organism; N18.6 End stage renal disease; K65.0 Generalized (acute) peritonitis; I12.0 Hypertensive chronic kidney disease with stage 5 chronic kidney disease or end stage renal disease; R18.8 Other ascites; E11.649 Type 2 diabetes mellitus with hypoglycemia without coma; T85.611A Breakdown (mechanical) of intraperitoneal dialysis catheter, initial encounter; E11.22 Type 2 diabetes mellitus with diabetic chronic kidney disease; D63.1 Anemia in chronic kidney disease; E11.40 Type 2 diabetes mellitus with diabetic neuropathy, unspecified; Z99.2 Dependence on renal dialysis; J44.9 Chronic obstructive pulmonary disease, unspecified; Z79.4 Long term (current) use of insulin; Z20.822 Contact with and (suspected) exposure to COVID-19; B95.61 Methicillin susceptible Staphylococcus aureus infection as the cause of diseases classified elsewhere; E87.70 Fluid overload, unspecified; R09.02 Hypoxemia; E78.5 Hyperlipidemia, unspecified; E89.0 Postprocedural hypothyroidism; I25.10 Atherosclerotic heart disease of native coronary artery without angina pectoris; M19.042 Primary osteoarthritis, left hand; M19.041 Primary osteoarthritis, right hand; E66.9 Obesity, unspecified; Z68.30 Body mass index [BMI] 30.0-30.9, adult; Z79.02 Long term (current) use of antithrombotics/antiplatelets; Z79.890 Hormone replacement therapy; Z79.899 Other long term (current) drug therapy; Z95.1 Presence of aortocoronary bypass graft; Z95.2 Presence of prosthetic heart valve; Z90.710 Acquired absence of both cervix and uterus; Z87.42 Personal history of other diseases of the female genital tract; Z87.440 Personal history of urinary (tract) infections; Z87.11 Personal history of peptic ulcer disease; Z98.42 Cataract extraction status, left eye; Z98.41 Cataract extraction status, right eye; Z96.1 Presence of intraocular lens; Z95.5 Presence of coronary angioplasty implant and graft; Z98.890 Other specified postprocedural states; Y84.1 Kidney dialysis as the cause of abnormal reaction of the patient, or of later complication, without mention of misadventure at the time of the procedure; Z88.3 Allergy status to other anti-infective agents; Z88.0 Allergy status to penicillin; Z88.2 Allergy status to sulfonamides; Z82.49 Family history of ischemic heart disease and other diseases of the circulatory system; Z82.3 Family history of stroke
CPT/HCPCS: 36415; 36558; 71045; 71275; 74176; 76937; 77001; 80048; 80053; 80074; 80202; 81001; 83605; 83735; 83880; 84100; 84484; 85025; 85027; 85379; 85610; 85730; 86706; 87040; 87070; 87075; 87635; 90935; 93005; 94640; 94760; 99285

== ENCOUNTER 2020-07-03 10:32 | Inpatient (IN) | payer MEDICARE ==
--- NOTE | 2020-07-03 11:01 | ED ---
General Adult HPI - General Chief complaint: Shortness of Breath Stated complaint: SOB Time Seen by Provider: 07/03/20 10:35 Source: patient, RN notes reviewed Mode of arrival: ambulatory Limitations: no limitations - History of Present Illness Initial comments: Patient is a pleasant 80-year-old female presenting to the emergency Department with complaints of dyspnea. Onset of symptoms was a couple of days ago. Patient has minimal cough with minimal sputum production. No chills or fever. No loss of taste or smell. Patient has been fatigued. No leg pain or swelling. Patient did miss dialysis on Monday because the center was closed. Patient did go today and had dialysis done with no change of symptoms. Symptoms do worsen with exertion. - Related Data Home Medications Medication Instructions Recorded Confirmed Clopidogrel [Plavix] 75 mg PO DAILY 06/09/20 07/03/20 Insulin Glargine [Lantus] 50 unit SQ HS 06/09/20 07/03/20 Metoprolol Tartrate [Lopressor] 100 mg PO BID 06/09/20 07/03/20 metOLazone [Zaroxolyn] 10 mg PO DAILY 06/09/20 07/03/20 Torsemide [Demadex] 20 mg PO BID 06/10/20 07/03/20 calcitrioL [Calcitriol] 0.5 mcg PO DAILY 06/10/20 07/03/20 Ipratropium-Albuterol Nebulize 3 ml INHALATION RT-TID 07/03/20 07/03/20 [Duoneb 0.5 mg-3 mg/3 ml Soln] Levothyroxine Sodium [Synthroid] 175 mcg PO DAILY 07/03/20 07/03/20 Lisinopril [Zestril] 20 mg PO BID 07/03/20 07/03/20 levOCARNitine [Levocarnitine] 330 mg PO DAILY 07/03/20 07/03/20 Previous Rx's Medication Instructions Recorded Acetaminophen Tab [Tylenol] 650 mg PO Q6HR PRN tab 06/12/20 Pantoprazole [Protonix] 40 mg PO AC-BRKFST #20 tablet. 06/12/20 Allergies Allergy/AdvReac Type Severity Reaction Status Date / Time levofloxacin [From Levaquin] Allergy Swelling Verified 07/03/20 12:38 Penicillins Allergy Swelling Verified 07/03/20 12:38 Sulfa (Sulfonamide Allergy Swelling Verified 07/03/20 12:38 Antibiotics) Review of Systems ROS Statement: Those systems with pertinent positive or pertinent negative responses have been documented in the HPI. ROS Other: All systems not noted in ROS Statement are negative. Constitutional: Reports: as per HPI. Denies: fever Eyes: Denies: eye pain ENT: Denies: ear pain Respiratory: Reports: cough, dyspnea Cardiovascular: Denies: chest pain Endocrine: Reports: fatigue Gastrointestinal: Denies: abdominal pain Genitourinary: Denies: dysuria Musculoskeletal: Denies: back pain Skin: Denies: rash Neurological: Denies: weakness Past Medical History Past Medical History: Coronary Artery Disease (CAD), Diabetes Mellitus, GI Bleed, Hyperlipidemia, Hypertension, Osteoarthritis (OA), Pneumonia, Renal Dise ase, Thyroid Disorder Additional Past Medical History / Comment(s): IDDM type II, neuropathy bilateral feet, ESRD/peritoneal dialysis x 3 years, UTI in past, pneumonia as a child, arthritis in bilateral hands, gastric ulcer, lower GI bleed with transfusions, past would "miss a heartbeat once in awhile", hypothyroid. History of Any Multi-Drug Resistant Organisms: None Reported Past Surgical History: Cardiac Valve Replacement, Coronary Bypass/CABG, Heart Catheterization, Heart Catheterization With Stent Additional Past Surgical History / Comment(s): 2018 CABG 3 vessels with valve replacement at [facility], peritoneal dialysis catheter, EGDs, colonoscopies, thyroidectomy d/t precancerous, bilateral cataract removal/lens implants. Additional Past Anesthesia/Blood Transfusion Reaction / Comment(s): Sometimes slow to wake. Pt has received blood in past without reaction. Date of Last Stent Placement:: 2015 Past Psychological History: No Psychological Hx Reported Smoking Status: Never smoker Past Alcohol Use History: None Reported Past Drug Use History: None Reported - Past Family History Father Family Medical History: Myocardial Infarction ([place]) Additional Family Medical History / Comment(s): Father of a [place] at the age of 65yrs. Mother Family Medical History: CVA/TIA Additional Family Medical History / Comment(s): Mother of a CVA at the age of 78yrs. General Exam Limitations: no limitations General appearance: alert, in no apparent distress Head exam: Present: normocephalic Eye exam: Present: normal appearance Neck exam: Present: normal inspection Respiratory exam: Present: normal lung sounds bilaterally Cardiovascular Exam: Present: regular rate, normal rhythm GI/Abdominal exam: Present: soft. Absent: tenderness Extremities exam: Present: normal inspection Neurological exam: Present: alert Psychiatric exam: Present: normal affect, normal mood Skin exam: Present: normal color Course Vital Signs 07/03/20 07/03/20 10:34 11:25 Temperature 97.7 F Pulse Rate 85 75 Respiratory 22 18 Rate Blood Pressure 121/46 109/49 O2 Sat by Pulse 97 100 Oximetry EKG Findings - EKG Comments: EKG Findings:: Normal sinus rhythm with rate of 85. MA 178. QRS 96 per QT 418. QTC 497. Normal axis. Normal QRS. Nonspecific ST-T. Medical Decision Making - Medical Decision Making Patient reevaluated. Patient and family updated. Case discussed with Dr. Lee, who will admit for hospital call. Blood transfusion ordered. GI and nephrology will be placed on consult. - Lab Data Result diagrams: 07/03/20 11:02 07/03/20 11:02 Lab Results 07/03/20 07/03/20 07/03/20 Range/Units 11:02 11:02 11:02 WBC 14.5 H (3.8-10.6) k/uL RBC 1.68 L (3.80-5.40) m/uL Hgb 5.3 L* D (11.4-16.0) gm/dL Hct 16.0 L* (34.0-46.0) % MCV 95.3 D (80.0-100.0) fL MCH 31.7 (25.0-35.0) pg MCHC 33.3 (31.0-37.0) g/dL RDW 20.2 H (11.5-15.5) % Plt Count 309 (150-450) k/uL MPV 9.1 Neutrophils % 81 % Lymphocytes % 10 % Monocytes % 4 % Eosinophils % 4 % Basophils % 1 % Neutrophils # 11.7 H (1.3-7.7) k/uL Lymphocytes # 1.4 (1.0-4.8) k/uL Monocytes # 0.5 (0-1.0) k/uL Eosinophils # 0.5 (0-0.7) k/uL Basophils # 0.1 (0-0.2) k/uL Hypochromasia Slight Anisocytosis Moderate Macrocytosis Slight PT 10.2 (9.0-12.0) sec INR 0.9 (<1.2) APTT 21.5 L (22.0-30.0) sec Sodium 132 L (137-145) mmol/L Potassium 3.8 (3.5-5.1) mmol/L Chloride 94 L (98-107) mmol/L Carbon Dioxide 31 H (22-30) mmol/L Anion Gap 7 mmol/L BUN 24 H (7-17) mg/dL Creatinine 1.93 H (0.52-1.04) mg/dL Est GFR (CKD-EPI)AfAm 28 (>60 ml/min/1.73 sqM) Est GFR (CKD-EPI)NonAf 24 (>60 ml/min/1.73 sqM) Glucose 252 H (74-99) mg/dL Plasma Lactic Acid Kanu (0.7-2.0) mmol/L Calcium 8.7 (8.4-10.2) mg/dL Total Bilirubin 0.3 (0.2-1.3) mg/dL AST 20 (14-36) U/L ALT 14 (4-34) U/L Alkaline Phosphatase 102 (38-126) U/L Troponin I (0.000-0.034) ng/mL NT-Pro-B Natriuret Pep pg/mL Total Protein 6.1 L (6.3-8.2) g/dL Albumin 3.1 L (3.5-5.0) g/dL Stool Occult Blood (Negative) Coronavirus (PCR) (Not Detectd) 07/03/20 07/03/20 07/03/20 Range/Units 11:02 11:02 11:02 WBC (3.8-10.6) k/uL RBC (3.80-5.40) m/uL Hgb (11.4-16.0) gm/dL Hct (34.0-46.0) % MCV (80.0-100.0) fL MCH (25.0-35.0) pg MCHC (31.0-37.0) g/dL RDW (11.5-15.5) % Plt Count (150-450) k/uL MPV Neutrophils % % Lymphocytes % % Monocytes % % Eosinophils % % Basophils % % Neutrophils # (1.3-7.7) k/uL Lymphocytes # (1.0-4.8) k/uL Monocytes # (0-1.0) k/uL Eosinophils # (0-0.7) k/uL Basophils # (0-0.2) k/uL Hypochromasia Anisocytosis Macrocytosis PT (9.0-12.0) sec INR (<1.2) APTT (22.0-30.0) sec Sodium (137-145) mmol/L Potassium (3.5-5.1) mmol/L Chloride (98-107) mmol/L Carbon Dioxide (22-30) mmol/L Anion Gap mmol/L BUN (7-17) mg/dL Creatinine (0.52-1.04) mg/dL Est GFR (CKD-EPI)AfAm (>60 ml/min/1.73 sqM) Est GFR (CKD-EPI)NonAf (>60 ml/min/1.73 sqM) Glucose (74-99) mg/dL Plasma Lactic Acid Kanu 1.4 (0.7-2.0) mmol/L Calcium (8.4-10.2) mg/dL Total Bilirubin (0.2-1.3) mg/dL AST (14-36) U/L ALT (4-34) U/L Alkaline Phosphatase (38-126) U/L Troponin I 0.078 H* (0.000-0.034) ng/mL NT-Pro-B Natriuret Pep 53660 pg/mL Total Protein (6.3-8.2) g/dL Albumin (3.5-5.0) g/dL Stool Occult Blood (Negative) Coronavirus (PCR) (Not Detectd) 07/03/20 07/03/20 Range/Units 11:02 12:03 WBC (3.8-10.6) k/uL RBC (3.80-5.40) m/uL Hgb (11.4-16.0) gm/dL Hct (34.0-46.0) % MCV (80.0-100.0) fL MCH (25.0-35.0) pg MCHC (31.0-37.0) g/dL RDW (11.5-15.5) % Plt Count (150-450) k/uL MPV Neutrophils % % Lymphocytes % % Monocytes % % Eosinophils % % Basophils % % Neutrophils # (1.3-7.7) k/uL Lymphocytes # (1.0-4.8) k/uL Monocytes # (0-1.0) k/uL Eosinophils # (0-0.7) k/uL Basophils # (0-0.2) k/uL Hypochromasia Anisocytosis Macrocytosis PT (9.0-12.0) sec INR (<1.2) APTT (22.0-30.0) sec Sodium (137-145) mmol/L Potassium (3.5-5.1) mmol/L Chloride (98-107) mmol/L Carbon Dioxide (22-30) mmol/L Anion Gap mmol/L BUN (7-17) mg/dL Creatinine (0.52-1.04) mg/dL Est GFR (CKD-EPI)AfAm (>60 ml/min/1.73 sqM) Est GFR (CKD-EPI)NonAf (>60 ml/min/1.73 sqM) Glucose (74-99) mg/dL Plasma Lactic Acid Kanu (0.7-2.0) mmol/L Calcium (8.4-10.2) mg/dL Total Bilirubin (0.2-1.3) mg/dL AST (14-36) U/L ALT (4-34) U/L Alkaline Phosphatase (38-126) U/L Troponin I (0.000-0.034) ng/mL NT-Pro-B Natriuret Pep pg/mL Total Protein (6.3-8.2) g/dL Albumin (3.5-5.0) g/dL Stool Occult Blood Positive H (Negative) Coronavirus (PCR) Not Detected (Not Detectd) - Radiology Data Radiology results: image reviewed (Chest x-ray shows mild 3 megaly and vascular prominence. Small left effusion.) Critical Care Time Critical Care Time: Yes Total Critical Care Time: 33 Disposition Clinical Impression: GI hemorrhage, Dyspnea Disposition: ADMITTED IP TO THIS [facility] Condition: Serious Is patient prescribed a controlled substance at d/c from ED?: No Referrals: Yovany Lacey DO [Primary Care Provider] - 1-2 days Decision Time: 12:51
[2020-07-03 11:18] LABS: Anisocytosis Moderate; Basophils # (A) 0.1 k/uL (0-0.2); Basophils % (A) 1 %; Eosinophils # (A) 0.5 k/uL (0-0.7); Eosinophils % (A) 4 %; Hypochromasia Slight; Lymphocytes # (A) 1.4 k/uL (1.0-4.8); Lymphocytes % (A) 10 %; MCH 31.7 pg (25.0-35.0); MCHC 33.3 g/dL (31.0-37.0); Macrocytosis Slight; Mean Platelet Volume 9.1; Monocytes # (A) 0.5 k/uL (0-1.0); Monocytes % (A) 4 %; Neutrophils # (A) 11.7 k/uL (1.3-7.7); Neutrophils % (A) 81 %; Platelet Count 309 k/uL (150-450); RBC 1.68 m/uL (3.80-5.40); RDW 20.2 % (11.5-15.5); WBC 14.5 k/uL (3.8-10.6)
[2020-07-03 11:30] LABS: HGB 5.3 gm/dL (11.4-16.0)
[2020-07-03 11:31] LABS: Albumin 3.1 g/dL (3.5-5.0); Calcium 8.7 mg/dL (8.4-10.2); MCV 95.3 fL (80.0-100.0); Potassium 3.8 mmol/L (3.5-5.1); Total Bilirubin 0.3 mg/dL (0.2-1.3); Total Protein 6.1 g/dL (6.3-8.2)
--- NOTE | 2020-07-03 11:44 | XR ---
EXAMINATION TYPE: XR chest 2V DATE OF EXAM: 07/03/2020 COMPARISON: 06/12/2020 HISTORY: 80 year-old female shortness of breath, difficulty breathing TECHNIQUE: PA and lateral views FINDINGS: Right-sided double-lumen hemodialysis catheter. Tips in the mid to lower SVC region. Median sternotom y wires. Heart mildly enlarged. There is a small left effusion with adjacent left basilar opacity. In terstitial/vascular prominence is noted. Trace effusion on the right. IMPRESSION: 1. Mild cardiomegaly and interstitial/vascular prominence. Correlate for mild pulmonary vascular terence estion. 2. Small left and trace right effusions with adjacent atelectasis and/or consolidation.
[2020-07-03 11:45] LABS: INR 0.9 (<1.2); Prothrombin Time 10.2 sec (9.0-12.0)
[2020-07-03] MEDS ORDERED: PANTOPRAZOLE 40 MG/10 ML VIAL IVP STA (11:53)
[2020-07-03 12:16] LABS: Partial Thromboplastin Time 21.5 sec (22.0-30.0)
[2020-07-03] MEDS ORDERED: NALOXONE 0.4 MG/ML 1 ML VIAL IV PRN (12:51)
[2020-07-03] MEDS: SODIUM CHLORIDE 0.9% 1,000 ML IV SCH (13:20)
[2020-07-03 13:22] LABS: Glucose,Whole Blood 225 mg/dL (75-99)
--- NOTE | 2020-07-03 14:27 | HP ---
HISTORY AND PHYSICAL CHIEF COMPLAINT: Shortness of breath. HISTORY OF PRESENT ILLNESS: This 80-year-old woman with a past medical history of multiple medical problems including CAD, diabetes mellitus, GI bleed, history hypertension, hyperlipidemia, history of DJD, history pneumonia, history of hypothyroidism, being followed by Dr. Lacey in the outpatient setting recently admitted with acute peritonitis to [facility]. The patient treated and improved significant. Patient went home. Currently the patient is complaining of significant shortness of breath and weakness and hemoglobin is only 5.3. The patient was admitted for further evaluation and treatment. Previously, the patient apparently had duodenal ulcer and fevers and the patient also had a history of transfusion up to 18 units of transfusion. The details are not available at this time. There is no history of abdominal pain. There is no history of fever, rigors or chills. Patient has not noticed any melena or any tash blood per rectum at this time. PAST MEDICAL HISTORY: Coronary artery disease, diabetes mellitus, GI bleed, hypertension, hyperlipidemia, history of pneumonia, history hypothyroidism. MEDICATIONS: Home medications are: 1. Zaroxolyn. 2. Calcitriol. 3. Demadex. 4. Protonix. 5. Lopressor. 6. Synthroid. 7. DuoNeb. 8. Lantus. 9. Plavix. 10.Tylenol. ALLERGIES: LEVAQUIN, PENICILLIN, SULFA. FAMILY HISTORY: History of myocardial infarction in the family. SOCIAL HISTORY: No history of smoking. No history of alcohol. REVIEW OF SYSTEMS: ENT: As mentioned earlier. CARDIOVASCULAR SYSTEM: As mentioned earlier. RESPIRATORY SYSTEM: As mentioned earlier. GI: As mentioned earlier. : As mentioned no. NERVOUS SYSTEM: No numbness or weakness. ALLERGY/IMMUNOLOGY: No history of asthma or hayfever. MUSCULOSKELETAL: As mentioned earlier. HEMATOLOGY: No history of anemia. ENDOCRINE: As mentioned earlier. CONSTITUTIONAL: As mentioned earlier. DERMATOLOGY: Negative. RHEUMATOLOGY: Negative. PSYCHIATRY: As mentioned earlier. PHYSICAL EXAMINATION: Patient is alert and oriented x3. Pulse 75, blood pressure 109/49, respiration 18, temperature 97.7, pulse ox 100% on 3 L. HEENT: Conjunctivae normal. NECK: No jugular venous distention. CARDIOVASCULAR: S1, S2 muffled. RESPIRATORY: Breath sounds diminished at the bases. No rhonchi, no crackles. ABDOMEN: Soft, nontender. No mass palpable. LEGS: No edema. NERVOUS SYSTEM: Higher functions as mentioned. Moves all 4 limbs. No focal motor or sensory deficits. LYMPHATICS: No lymphadenopathy of the neck, axillae or groin. SKIN: No ulcer, rash or bleeding. JOINTS: No active deforming arthropathy. LABS: WBC 14.5, hemoglobin 5.3, sodium 132, potassium 3.8. Creatinine is 1.93. The baseline creatinine is 2.7. Troponin 0.078. Chest x-ray which was reviewed personally by me showed some increasing infiltrate. ASSESSMENT: 1. Shortness of breath secondary to possibly anemia, acute blood loss anemia with severe symptomatic anemia, possible acute gastrointestinal bleed. 2. History of recent peritonitis. 3. Troponin 0.078, indeterminate. 4. History of end-stage renal disease on peritoneal dialysis. 5. History of coronary artery disease. 6. History of diabetes mellitus type 2. 7. History of duodenal ulcer. 8. Hypertension. 9. Hyperlipidemia. 10.History of massive blood transfusions. 11.History of degenerative joint disease. 12.History of hypothyroidism. 13.History of cardiac valve replacement. 14.History of coronary artery disease, coronary artery bypass grafting, stent. RECOMMENDATIONS AND DISCUSSION: In this 80-year-old woman who presented with multiple complex medical issues, we will monitor the patient closely. Will transfuse at least 2 units of PRBC for symptomatic anemia with Lasix in between. Otherwise, we will consult Cardiology, Nephrology and Gastroenterology. The patient will require upper endoscopies, proton pump inhibitors, DVT prophylaxis. Avoid antiplatelet agents . Prognosis remains guarded because of multiple complex medical issues. Further recommendations to follow. MMODL / IJN: [id number] / LION
[2020-07-03] MEDS ORDERED: ACETAMINOPHEN TAB 325 MG TAB PO PRN (20:00)
[2020-07-03] MEDS: IPRATROPIUM-ALBUTEROL 3 ML NEB INHALATION SCH (20:38)
[2020-07-03] MEDS ORDERED: INSULIN DETEMIR (LEVEMIR) 100 UNIT/ML SYR SQ SCH (21:00)
[2020-07-03 21:02] LABS: Glucose,Whole Blood 170 mg/dL (75-99)
[2020-07-03] MEDS: TORSEMIDE 20 MG TAB PO SCH (21:18)
[2020-07-03] MEDS: lisinopriL 20 MG TAB PO SCH (21:18)
[2020-07-03] MEDS: METOPROLOL TARTRATE 50 MG TAB PO SCH (21:18)
[2020-07-04 00:34] LABS: Anisocytosis Moderate; Basophils # (A) 0.1 k/uL (0-0.2); Basophils % (A) 1 %; Eosinophils % (A) 9 %; HCT 20.7 % (34.0-46.0); Hypochromasia Slight; Lymphocytes # (A) 1.5 k/uL (1.0-4.8); Lymphocytes % (A) 13 %; MCHC 31.7 g/dL (31.0-37.0); MCV 91.7 fL (80.0-100.0); Macrocytosis Slight; Mean Platelet Volume 9.4; Monocytes # (A) 0.7 k/uL (0-1.0); Monocytes % (A) 6 %; Neutrophils # (A) 8.6 k/uL (1.3-7.7); Platelet Count 287 k/uL (150-450); Poikilocytosis Slight; RBC 2.25 m/uL (3.80-5.40); RDW 20.8 % (11.5-15.5); WBC 12.1 k/uL (3.8-10.6)
[2020-07-04 01:13] LABS: HGB 6.5 gm/dL (11.4-16.0)
[2020-07-04] MEDS: LEVOTHYROXINE 100 MCG TAB PO SCH (06:08)
[2020-07-04] MEDS: LEVOTHYROXINE 75 MCG TAB PO SCH (06:08)
[2020-07-04 07:03] LABS: Glucose,Whole Blood 62 mg/dL (75-99)
[2020-07-04 07:18] LABS: Glucose,Whole Blood 67 mg/dL (75-99)
[2020-07-04] MEDS: IPRATROPIUM-ALBUTEROL 3 ML NEB INHALATION SCH ×3 (07:23→20:57)
[2020-07-04 07:34] LABS: Glucose,Whole Blood 85 mg/dL (75-99)
[2020-07-04 08:56] LABS: Anisocytosis Moderate; Basophils # (A) 0.1 k/uL (0-0.2); Basophils % (A) 1 %; Eosinophils # (A) 0.9 k/uL (0-0.7); Eosinophils % (A) 8 %; HCT 22.9 % (34.0-46.0); HGB 7.7 gm/dL (11.4-16.0); Hypochromasia Slight; Lymphocytes # (A) 1.3 k/uL (1.0-4.8); Lymphocytes % (A) 11 %; MCH 30.4 pg (25.0-35.0); MCHC 33.6 g/dL (31.0-37.0); MCV 90.7 fL (80.0-100.0); Macrocytosis Slight; Mean Platelet Volume 9.1; Monocytes # (A) 0.7 k/uL (0-1.0); Monocytes % (A) 6 %; Neutrophils # (A) 8.7 k/uL (1.3-7.7); Neutrophils % (A) 74 %; Platelet Count 308 k/uL (150-450); Poikilocytosis Moderate; RBC 2.52 m/uL (3.80-5.40); RDW 20.2 % (11.5-15.5); WBC 11.8 k/uL (3.8-10.6)
[2020-07-04 09:01] LABS: Potassium 3.9 mmol/L (3.5-5.1)
[2020-07-04] MEDS: lisinopriL 20 MG TAB PO SCH ×2 (09:02→20:26)
[2020-07-04] MEDS: METOPROLOL TARTRATE 50 MG TAB PO SCH ×2 (09:02→20:26)
[2020-07-04] MEDS: PANTOPRAZOLE 40 MG/10 ML VIAL IVP SCH (09:03)
[2020-07-04] MEDS: metOLazone 5 MG TAB PO SCH (09:03)
[2020-07-04] MEDS: TORSEMIDE 20 MG TAB PO SCH ×2 (09:03→20:26)
[2020-07-04] MEDS: levOCARNitine (WITH SUGAR) 100 MG/ML BOTTLE PO SCH (09:08)
--- NOTE | 2020-07-04 10:16 | P.NPCON ---
History of Present Illness - Reason for Consult Consult date: 07/04/20 end stage renal disease - Chief Complaint Generalized weakness and anemia - History of Present Illness This 80-year-old female known to us with ESRD on hemodialysis recently converted from peritoneal dialysis after an episode of peritonitis and her PD catheter was taken out. She is on dialysis Monday. She came in to the hospital after her dialysis yesterday because of generalized weakness and phosphorous have anemia hemoglobin was down from 92 days ago to 5.3. Patient denies any prior BLEEDING through the GI tract or anywhere else. No abdominal pain heartburn and GERD. No melena. Supposedly she has had previous GI bleeding 3 years ago and had colonoscopy and EGD She is known with ASHD, coronary artery bypass graft and valve replacement in the aortic valve, stent in the heart and diabetes mellitus. She has a permacath on the right side Currently after being transfused 2 units of blood she is feeling fine. No chest pain shortness of breath dizziness no nausea vomiting abdominal pain. Vital signs are stable Past Medical History Past Medical History: Coronary Artery Disease (CAD), Diabetes Mellitus, GI Bleed, Hyperlipidemia, Hypertension, Osteoarthritis (OA), Pneumonia, Renal Disease, Thyroid Disorder Additional Past Medical History / Comment(s): IDDM type II, neuropathy bilateral feet, ESRD/peritoneal dialysis x 3 years, UTI in past, pneumonia as a child, arthritis in bilateral hands, gastric ulcer, lower GI bleed with transfusions, past would "miss a heartbeat once in awhile", hypothyroid. History of Any Multi-Drug Resistant Organisms: None Reported Past Surgical History: Cardiac Valve Replacement, Coronary Bypass/CABG, Heart Ca theterization, Heart Catheterization With Stent Additional Past Surgical History / Comment(s): 2018 CABG 3 vessels with valve replacement at [facility], peritoneal dialysis catheter, EGDs, colonoscopies, thyroidectomy d/t precancerous, bilateral cataract removal/lens implants. Additional Past Anesthesia/Blood Transfusion Reaction / Comment(s): Sometimes slow to wake. Pt has received blood in past without reaction. Date of Last Stent Placement:: 2015 Past Psychological History: No Psychological Hx Reported Additional Psychological History / Comment(s): Pt resides with her spouse. She uses a cane/walker prn. She drives short distances. Smoking Status: Never smoker Past Alcohol Use History: None Reported Past Drug Use History: None Reported - Past Family History Father Family Medical History: Myocardial Infarction ([place]) Additional Family Medical History / Comment(s): Father of a VT at the age of 65yrs. Mother Family Medical History: CVA/TIA Additional Family Medical History / Comment(s): Mother of a CVA at the age of 78yrs. Medications and Allergies Home Medications Medication Instructions Recorded Confirmed Type Clopidogrel [Plavix] 75 mg PO DAILY 06/09/20 07/03/20 History Insulin Glargine [Lantus] 50 unit SQ HS 06/09/20 07/03/20 History Metoprolol Tartrate [Lopressor] 100 mg PO BID 06/09/20 07/03/20 History metOLazone [Zaroxolyn] 10 mg PO DAILY 06/09/20 07/03/20 History Torsemide [Demadex] 20 mg PO BID 06/10/20 07/03/20 History calcitrioL [Calcitriol] 0.5 mcg PO DAILY 06/10/20 07/03/20 History Acetaminophen Tab [Tylenol] 650 mg PO Q6HR PRN tab 06/12/20 07/03/20 Rx Pantoprazole [Protonix] 40 mg PO SAÚL-BRKFST #20 tablet. 06/12/20 07/03/20 Rx Ipratropium-Albuterol Nebulize 3 ml INHALATION RT-TID 07/03/20 07/03/20 History [Duoneb 0.5 mg-3 mg/3 ml Soln] Levothyroxine Sodium [Synthroid] 175 mcg PO DAILY 07/03/20 07/03/20 History Lisinopril [Zestril] 20 mg PO BID 07/03/20 07/03/20 History levOCARNitine [Levocarnitine] 330 mg PO DAILY 07/03/20 07/03/20 History Allergies Allergy/AdvReac Type Severity Reaction Status Date / Time levofloxacin [From Levaquin] Allergy Swelling Verified 07/03/20 12:38 Penicillins Allergy Swelling Verified 07/03/20 12:38 Sulfa (Sulfonamide Allergy Swelling Verified 07/03/20 12:38 Antibiotics) Physical Exam Vitals: Vital Signs Temp Pulse Pulse Resp BP BP Pulse Ox 07/04/20 08:58 97.6 F 69 18 144/67 97 07/04/20 07:41 64 07/04/20 07:27 63 07/04/20 04:00 72 16 120/60 96 07/04/20 00:00 71 16 120/58 92 L 07/03/20 21:14 97.9 F 77 16 142/65 99 07/03/20 21:13 97.9 F 77 16 142/65 99 07/03/20 20:24 76 18 111/70 99 07/03/20 20:00 77 16 116/51 98 07/03/20 19:24 105 H 23 125/70 98 07/03/20 18:39 97.9 F 75 18 109/60 07/03/20 18:09 97.8 F 79 18 117/63 07/03/20 17:59 97.9 F 77 18 126/62 07/03/20 17:41 98.2 F 74 18 126/61 07/03/20 17:21 98.1 F 76 18 107/48 07/03/20 16:21 98.0 F 79 18 124/45 07/03/20 15:32 98.2 F 81 18 141/99 07/03/20 15:02 98.1 F 80 18 106/56 07/03/20 14:52 97.9 F 75 18 109/48 07/03/20 13:45 77 18 105/53 98 07/03/20 11:25 75 18 109/49 100 07/03/20 10:34 97.7 F 85 22 121/46 97 Intake and Output 07/03/20 07/04/20 07/04/20 22:59 06:59 14:59 Intake Total 620 300 Output Total 200 Balance 620 -200 300 Intake: Oral 300 Blood Product 620 As-1 Unit 310 [id number] As-1 Unit 310 [id number] Output: Urine 200 Other: # Voids 1 Weight 81.647 kg 83.5 kg Examination she is on 2 L nasal cannula comfortable sitting. HEENT exam no JVP neck is supple no facial asymmetry Lungs are clear to auscultation with bilateral basal crackles not clear but cough Heart sounds are unremarkable for any murmur rub gallop Abdomen soft nontender Extremity exam was no edema Neurologically awake alert oriented. Results - Lab Results Most recent lab results Calcium 9.0 mg/dL (8.4-10.2) 07/04/20 08:18 07/04/20 08:18 07/04/20 08:18 Assessment and Plan Plan: Impression 1. ESRD on hemodialysis Monday with repeat cath on the right side. She was recently switched over from peritoneal dialysis after the peritonitis episode needing PD catheter removal dated 06/12/2020. 2. Admitted with weakness and anemia hemoglobin was 5.3 down from 9. No obvious cause but has been previously known with peptic ulcer disease 3. Anemia, cause not clear. Possible peptic ulcer disease. Rule out an deficiency 4. History of aortic valve replacement, CABG, coronary stent. 5. History of diabetes. 6. Bilateral basal crackles chronically present probably computed tomography scan has been done recently on 06/12/2020 Recommendation 1. Will maintain her Monday dialysis schedule. 2. Hemoglobin 7.7. check iron saturation 3. Resume Aranesp at 60 g per week
--- NOTE | 2020-07-04 11:56 | P.CONS ---
History of Present Illness - Reason for Consult Consult date: 07/04/20 Anemia Requesting physician: Ap Lee - Chief Complaint Shortness of breath - History of Present Illness 80-year-old female with multiple medical comorbidities including diabetes mellitus, coronary artery disease, hyperlipidemia, hypertension, hypothyroidism, degenerative joint disease, end-stage renal disease on hemodialysis and history of anemia who presented to the hospital due to shortness of breath and abnormal labs. Patient has been experiencing some weakness and shortness of breath and was found to be anemic. Patient had a hemoglobin of 5.3 on presentation with macrocytic indices. Currently hemoglobin is 7.7. The patient denies any signs or symptoms of GI bleeding. Stool testing was positive for blood. The patient reports she has had similar complaints in the past and had extensive workup approximately 2-3 years ago and [facility] at that time the patient reports 3 EGDs, 2 colonoscopies and video capsule endoscopy and does not believe there were able to find a definitive source of bleeding at that time. She denies any coffee-ground emesis, hematemesis, hematochezia or melena. No abdominal pain reported. Review of Systems REVIEW OF SYSTEMS: CONSTITUTIONAL: Denies any fevers, chills, weight change or fatigue. CARDIOVASCULAR: Denies any chest pain, palpitations high or low blood pressures RESPIRATORY: Denies any shortness of breath, hemoptysis or cough. GENITOURINARY: No dysuria or hematuria, the patient does have end-stage renal disease on hemodialysis. MUSCULOSKELETAL: No weakness reported. SKIN: Denies any new rashes or lesions, jaundice or pallor. PSYCHIATRIC: Denies any depression or anxiety. NEUROLOGY: Denies headache, denies any new focal deficits. EARS/NOSE/THROAT: No recent hearing change, congestion, nasal discharge or sore throat. EYES: No pain in eyes, discharge or change in vision. GASTROINTESTINAL: As per HPI. Past Medical History Past Medical History: Coronary Artery Disease (CAD), Diabetes Mellitus, GI Bleed, Hyperlipidemia, Hypertension, Osteoarthritis (OA), Pneumonia, Renal Disease, Thyroid Disorder Additional Past Medical History / Comment(s): IDDM type II, neuropathy bilateral feet, ESRD/peritoneal dialysis x 3 years, UTI in past, pneumonia as a child, arthritis in bilateral hands, gastric ulcer, lower GI bleed with transfusions, past would "miss a heartbeat once in awhile", hypothyroid. History of Any Multi-Drug Resistant Organisms: None Reported Past Surgical History: Cardiac Valve Replacement, Coronary Bypass/CABG, Heart Catheterization, Heart Catheterization With Stent Additional Past Surgical History / Comment(s): 2018 CABG 3 vessels with valve replacement at [facility], peritoneal dialysis catheter, EGDs, colonoscopies, thyroidectomy d/t precancerous, bilateral cataract removal/lens implants. Additional Past Anesthesia/Blood Transfusion Reaction / Comm: Sometimes slow to wake. Pt has received blood in past without reaction. Date of Last Stent Placement:: 2015 Past Psychological History: No Psychological Hx Reported Additional Psychological History / Comment(s): Pt resides with her spouse. She uses a cane/walker prn. She drives short distances. Smoking Status: Never smoker Past Alcohol Use History: None Reported Past Drug Use History: None Reported - Past Family History Father Family Medical History: Myocardial Infarction (NV) Additional Family Medical History / Comment(s): Father of a [place] at the age of 65yrs. Mother Family Medical History: CVA/TIA Additional Family Medical History / Comment(s): Mother of a CVA at the age of 78yrs. Medications and Allergies Home Medications Medication Instructions Recorded Confirmed Type Clopidogrel [Plavix] 75 mg PO DAILY 06/09/20 07/03/20 History Insulin Glargine [Lantus] 50 unit SQ HS 06/09/20 07/03/20 History Metoprolol Tartrate [Lopressor] 100 mg PO BID 06/09/20 07/03/20 History metOLazone [Zaroxolyn] 10 mg PO DAILY 06/09/20 07/03/20 History Torsemide [Demadex] 20 mg PO BID 06/10/20 07/03/20 History calcitrioL [Calcitriol] 0.5 mcg PO DAILY 06/10/20 07/03/20 History Acetaminophen Tab [Tylenol] 650 mg PO Q6HR PRN tab 06/12/20 07/03/20 Rx Pantoprazole [Protonix] 40 mg PO AC-BRKFST #20 tablet. 06/12/20 07/03/20 Rx Ipratropium-Albuterol Nebulize 3 ml INHALATION RT-TID 07/03/20 07/03/20 History [Duoneb 0.5 mg-3 mg/3 ml Soln] Levothyroxine Sodium [Synthroid] 175 mcg PO DAILY 07/03/20 07/03/20 History Lisinopril [Zestril] 20 mg PO BID 07/03/20 07/03/20 History levOCARNitine [Levocarnitine] 330 mg PO DAILY 07/03/20 07/03/20 History Allergies Allergy/AdvReac Type Severity Reaction Status Date / Time levofloxacin [From Levaquin] Allergy Swelling Verified 07/03/20 12:38 Penicillins Allergy Swelling Verified 07/03/20 12:38 Sulfa (Sulfonamide Allergy Swelling Verified 07/03/20 12:38 Antibiotics) Physical Exam Vitals: Vital Signs Temp Pulse Pulse Resp BP BP Pulse Ox 07/04/20 08:58 97.6 F 69 18 144/67 97 07/04/20 07:41 64 07/04/20 07:27 63 07/04/20 04:00 72 16 120/60 96 07/04/20 00:00 71 16 120/58 92 L 07/03/20 21:14 97.9 F 77 16 142/65 99 07/03/20 21:13 97.9 F 77 16 142/65 99 07/03/20 20:24 76 18 111/70 99 07/03/20 20:00 77 16 116/51 98 07/03/20 19:24 105 H 23 125/70 98 07/03/20 18:39 97.9 F 75 18 109/60 07/03/20 18:09 97.8 F 79 18 117/63 07/03/20 17:59 97.9 F 77 18 126/62 07/03/20 17:41 98.2 F 74 18 126/61 07/03/20 17:21 98.1 F 76 18 107/48 07/03/20 16:21 98.0 F 79 18 124/45 07/03/20 15:32 98.2 F 81 18 141/99 07/03/20 15:02 98.1 F 80 18 106/56 07/03/20 14:52 97.9 F 75 18 109/48 07/03/20 13:45 77 18 105/53 98 07/03/20 11:25 75 18 109/49 100 07/03/20 10:34 97.7 F 85 22 121/46 97 Intake and Output 07/03/20 07/04/20 07/04/20 22:59 06:59 14:59 Intake Total 620 300 Output Total 200 Balance 620 -200 300 Intake: Oral 300 Blood Product 620 As-1 Unit 310 [id number] As-1 Unit 310 [id number] Output: Urine 200 Other: # Voids 1 Weight 81.647 kg 83.5 kg On physical examination, patient appears comfortable in no apparent distress. HEAD: Normocephalic, atraumatic. EYES: No scleral icterus. No conjunctival injection. MOUTH: No lesions, tongue midline. NECK: Trachea midline, no gross abnormalities. CHEST: Clear to auscultation with no wheezing or rhonchi appreciated. HEART: S1-S2 appreciated. ABDOMEN: Soft, nontender to palpation. Bowel sounds are positive. No organomegaly. No guarding or rigidity. EXTREMITIES: No pedal edema. SKIN: No rashes, no jaundice. NEUROLOGIC: Alert and oriented x3. No focal deficits. Results CBC & Chem 7: 07/04/20 08:18 07/04/20 08:18 Labs: Abnormal Lab Results - Last 24 Hours (Table) 07/03/20 07/03/20 07/03/20 Range/Units 11:02 11:02 11:02 WBC 14.5 H (3.8-10.6) k/uL RBC 1.68 L (3.80-5.40) m/uL Hgb 5.3 L* D (11.4-16.0) gm/dL Hct 16.0 L* (34.0-46.0) % RDW 20.2 H (11.5-15.5) % Neutrophils # 11.7 H (1.3-7.7) k/uL Eosinophils # (0-0.7) k/uL APTT 21.5 L (22.0-30.0) sec Sodium 132 L (137-145) mmol/L Chloride 94 L (98-107) mmol/L Carbon Dioxide 31 H (22-30) mmol/L BUN 24 H (7-17) mg/dL Creatinine 1.93 H (0.52-1.04) mg/dL Glucose 252 H (74-99) mg/dL POC Glucose (mg/dL) (75-99) mg/dL Troponin I (0.000-0.034) ng/mL Total Protein 6.1 L (6.3-8.2) g/dL Albumin 3.1 L (3.5-5.0) g/dL Stool Occult Blood (Negative) Crossmatch 07/03/20 07/03/20 07/03/20 Range/Units 11:02 12:03 13:16 WBC (3.8-10.6) k/uL RBC (3.80-5.40) m/uL Hgb (11.4-16.0) gm/dL Hct (34.0-46.0) % RDW (11.5-15.5) % Neutrophils # (1.3-7.7) k/uL Eosinophils # (0-0.7) k/uL APTT (22.0-30.0) sec Sodium (137-145) mmol/L Chloride (98-107) mmol/L Carbon Dioxide (22-30) mmol/L BUN (7-17) mg/dL Creatinine (0.52-1.04) mg/dL Glucose (74-99) mg/dL POC Glucose (mg/dL) (75-99) mg/dL Troponin I 0.078 H* (0.000-0.034) ng/mL Total Protein (6.3-8.2) g/dL Albumin (3.5-5.0) g/dL Stool Occult Blood Positive H (Negative) Crossmatch See Detail 07/03/20 07/03/20 07/03/20 Range/Units 13:19 21:00 23:37 WBC 12.1 H (3.8-10.6) k/uL RBC 2.25 L (3.80-5.40) m/uL Hgb 6.5 L* (11.4-16.0) gm/dL Hct 20.7 L (34.0-46.0) % RDW 20.8 H (11.5-15.5) % Neutrophils # 8.6 H (1.3-7.7) k/uL Eosinophils # 1.0 H (0-0.7) k/uL APTT (22.0-30.0) sec Sodium (137-145) mmol/L Chloride (98-107) mmol/L Carbon Dioxide (22-30) mmol/L BUN (7-17) mg/dL Creatinine (0.52-1.04) mg/dL Glucose (74-99) mg/dL POC Glucose (mg/dL) 225 H 170 H (75-99) mg/dL Troponin I (0.000-0.034) ng/mL Total Protein (6.3-8.2) g/dL Albumin (3.5-5.0) g/dL Stool Occult Blood (Negative) Crossmatch 07/04/20 07/04/20 07/04/20 Range/Units 06:55 07:16 08:18 WBC 11.8 H (3.8-10.6) k/uL RBC 2.52 L (3.80-5.40) m/uL Hgb 7.7 L (11.4-16.0) gm/dL Hct 22.9 L (34.0-46.0) % RDW 20.2 H (11.5-15.5) % Neutrophils # 8.7 H (1.3-7.7) k/uL Eosinophils # 0.9 H (0-0.7) k/uL APTT (22.0-30.0) sec Sodium (137-145) mmol/L Chloride (98-107) mmol/L Carbon Dioxide (22-30) mmol/L BUN (7-17) mg/dL Creatinine (0.52-1.04) mg/dL Glucose (74-99) mg/dL POC Glucose (mg/dL) 62 L 67 L (75-99) mg/dL Troponin I (0.000-0.034) ng/mL Total Protein (6.3-8.2) g/dL Albumin (3.5-5.0) g/dL Stool Occult Blood (Negative) Crossmatch 07/04/20 Range/Units 08:18 WBC (3.8-10.6) k/uL RBC (3.80-5.40) m/uL Hgb (11.4-16.0) gm/dL Hct (34.0-46.0) % RDW (11.5-15.5) % Neutrophils # (1.3-7.7) k/uL Eosinophils # (0-0.7) k/uL APTT (22.0-30.0) sec Sodium 135 L (137-145) mmol/L Chloride 95 L (98-107) mmol/L Carbon Dioxide 32 H (22-30) mmol/L BUN 34 H (7-17) mg/dL Creatinine 3.34 H (0.52-1.04) mg/dL Glucose 157 H (74-99) mg/dL POC Glucose (mg/dL) (75-99) mg/dL Troponin I (0.000-0.034) ng/mL Total Protein (6.3-8.2) g/dL Albumin (3.5-5.0) g/dL Stool Occult Blood (Negative) Crossmatch Chest x-ray: report reviewed Assessment and Plan (1) Macrocytic anemia Narrative/Plan: 80-year-old female with multiple medical comorbidities presenting for shortness of breath and found to have a macrocytic anemia with hemoglobin of 5.3 on presentation. Currently hemoglobin 7.7 after transfusion. Patient reports an extensive workup in the past approximately 2-3 years ago at [facility] when she had similar findings of anemia she reports 3 EGDs at that time, 2 colonoscopies and a video capsule endoscopy with no definitive source of bleeding found at that time. The patient does have end-stage renal disease and is on hemodialysis and reports that she does receive Epogen and is also had iron transfusions in the past. She has received no further blood products since the episode of anemia 2-3 years ago and has been doing well. She denies any gross signs or symptoms of bleeding. Unclear etiology but suspicion is that anemia is likely multifactorial given anemia of chronic disease and end-stage renal disease, possibility of a AVM, peptic ulcer disease or other gastrointestinal etiology contributing to anemia. Current Visit: Yes Status: Acute Code(s): D53.9 - NUTRITIONAL ANEMIA, UNSPE CIFIED SNOMED Code(s): 44762058 (2) Positive occult stool blood test Current Visit: Yes Status: Acute Code(s): R19.5 - OTHER FECAL ABNORMALITIES SNOMED Code(s): 77506118 Plan: Supportive care Clear liquid diet Nothing by mouth after midnight Continue to monitor hemoglobin and hematocrit and transfuse as needed Anemia workup added to admission labs Plan for EGD tomorrow for further evaluation Continue Protonix therapy Thank you for allowing us to participate in the care of the patient
[2020-07-04 11:57] LABS: Glucose,Whole Blood 67 mg/dL (75-99)
[2020-07-04] MEDS ORDERED: DARBEPOETIN ALFA 60 MCG/0.3 ML SYRINGE SQ SCH (12:00)
[2020-07-04 12:17] LABS: Glucose,Whole Blood 67 mg/dL (75-99)
[2020-07-04 12:18] LABS: Reticulocyte % 8.2 % (0.5-2.0)
[2020-07-04 12:42] LABS: Glucose,Whole Blood 132 mg/dL (75-99)
[2020-07-04] MEDS: SODIUM CHLORIDE 0.9% 1,000 ML IV SCH (12:50)
[2020-07-04 15:09] LABS: Hemoglobin A1C 6.4 % (4.0-6.0)
[2020-07-04] MEDS ORDERED: FUROSEMIDE 10 MG/ML 2 ML VIAL IV ONE (15:15)
--- NOTE | 2020-07-04 16:44 | P.CRDCN ---
History of Present Illness History of present illness: HISTORY OF PRESENTING ILLNESS Patient is a pleasant 80-year-old female with history of diabetes mellitus type 2, coronary artery disease status post CABG 2018, hyperlipidemia, hypertension, hypothyroidism, valvular heart disease status post unknown valve replacement 2018, end-stage renal disease status post peritoneal dialysis and recently switched to hemodialysis one month ago, anemia who presents secondary to increasing shortness breath over the course of 1 week. Patient states she had been in her normal state of health however over the last 1 week has noted increased dyspnea on exertion. She was found to have hemoglobin of 5.3 on presentation and has been transfused 3 units packed red blood cells. She states she is feeling much better and is able to walk around the room without as much difficulty. She follows with cardiology with Dr. Barker from [facility] and initially had stenting 7 years ago and then had bypass surgery as well as valve replacement 3 years ago. She states she has done well since that time and has been on Plavix since that time. She denies any angina-type symptoms. She denies any history of heart failure or history of "heart damage ". She believes her last echocardiogram was a few years ago. We'll work was performed with initial troponin 0.078, no repeat. Patient was found to be Hemoccult positive. Negative for rotavirus. EKG showed normal sinus rhythm, normal axis, T-wave inversions in leads 3 and aVF, mild ST depressions in leads V4 through V6. REVIEW OF SYSTEMS At the time of my exam: CONSTITUTIONAL: Denies fever or chills. CARDIOVASCULAR: Denies chest pain, shortness of breath, orthopnea, PND or palpitations. RESPIRATORY: Denies cough. GASTROINTESTINAL: Denies abdominal pain, diarrhea, constipation, nausea or vomiting. MUSCULOSKELETAL: Denies myalgias. NEUROLOGIC: Denies numbness, tingling or weakness. ENDOCRINE: Denies fatigue, weight change, polydipsia or polyurina. GENITOURINARY: Denies burning, hematuria or urgency with micturation. HEMATOLOGIC: Denies history of anemia or bleeding. PHYSICAL EXAMINATION Vital signs reviewed. CONSTITUTIONAL: No apparent distress. HEENT: Head is normocephalic. Pupils are equal, round. Sclerae anicteric. Mucous membranes of the mouth are moist. No JVD. No carotid bruit. CHEST EXAMINATION: Lungs are clear to auscultation. No chest wall tenderness is noted on palpation or with deep breathing. HEART EXAMINATION: Regular rate and rhythm. S1, S2 heard. +2/6 systolic murmur, no gallops or rub. ABDOMEN: Soft, nontender. Positive bowel sounds. EXTREMITIES: 2+ peripheral pulses, no lower extremity edema and no calf tenderness. NEUROLOGIC EXAMINATION: Patient is awake, alert and oriented x3. ASSESSMENT 1. Elevated troponin, likely type II non-STEMI secondary to anemia 2. Severe symptomatic anemia with hemoglobin in the fives, likely acute blood loss anemia 3. Hemoccult-positive 4. Coronary artery disease status post CABG and PCI 5. Valvular heart disease status post valve replacement, likely aortic with aortic stenosis murmur 6. Essential hypertension 7. Diabetes mellitus type 2 8. Chronic kidney disease, end-stage renal disease on hemodialysis, previously on peritoneal dialysis PLAN Patient's main presentation of shortness breath appears related to severe anemia. Mildly elevated troponins likely type II mechanism from anemia as well as CTD. Check repeat to evaluate for trend however patient not currently a good interventional candidate with severe anemia and concern of GI bleed. Patient with good functional capacity prior to her GI bleed without any angina-type symptoms and is reasonable risk for per supposed EGD. Ideally aspirin given her history of CAD and would discontinue home Plavix. Past Medical History Past Medical History: Coronary Artery Disease (CAD), Diabetes Mellitus, GI Bleed, Hyperlipidemia, Hypertension, Osteoarthritis (OA), Pneumonia, Renal Disease, Thyroid Disorder Additional Past Medical History / Comment(s): IDDM type II, neuropathy bilateral feet, ESRD/peritoneal dialysis x 3 years, UTI in past, pneumonia as a child, arthritis in bilateral hands, gastric ulcer, lower GI bleed with transfusions, past would "miss a heartbeat once in awhile", hypothyroid. History of Any Multi-Drug Resistant Organisms: None Reported Past Surgical History: Cardiac Valve Replacement, Coronary Bypass/CABG, Heart Catheterization, Heart Catheterization With Stent Additional Past Surgical History / Comment(s): 2018 CABG 3 vessels with valve replacement at [facility], peritoneal dialysis catheter, EGDs, colonoscopies, thyroidectomy d/t precancerous, bilateral cataract removal/lens implants. Additional Past Anesthesia/Blood Transfusion Reaction / Comment(s): Sometimes slow to wake. Pt has received blood in past without reaction. Date of Last Stent Placement:: 2016 Past Psychological History: No Psychological Hx Reported Additional Psychological History / Comment(s): Pt resides with her spouse. She uses a cane/walker prn. She drives short distances. Smoking Status: Never smoker Past Alcohol Use History: None Reported Past Drug Use History: None Reported - Past Family History Father Family Medical History: Myocardial Infarction ([place]) Additional Family Medical History / Comment(s): Father of a [place] at the age of 65yrs. Mother Family Medical History: CVA/TIA Additional Family Medical History / Comment(s): Mother of a CVA at the age of 78yrs. Medications and Allergies Home Medications Medication Instructions Recorded Confirmed Type Clopidogrel [Plavix] 75 mg PO DAILY 06/09/20 07/03/20 History Insulin Glargine [Lantus] 50 unit SQ HS 06/09/20 07/03/20 History Metoprolol Tartrate [Lopressor] 100 mg PO BID 06/09/20 07/03/20 History metOLazone [Zaroxolyn] 10 mg PO DAILY 06/09/20 07/03/20 History Torsemide [Demadex] 20 mg PO BID 06/10/20 07/03/20 History calcitrioL [Calcitriol] 0.5 mcg PO DAILY 06/10/20 07/03/20 History Acetaminophen Tab [Tylenol] 650 mg PO Q6HR PRN tab 06/12/20 07/03/20 Rx Pantoprazole [Protonix] 40 mg PO [id number] #20 tablet. 06/12/20 07/03/20 Rx Ipratropium-Albuterol Nebulize 3 ml INHALATION RT-TID 07/03/20 07/03/20 History [Duoneb 0.5 mg-3 mg/3 ml Soln] Levothyroxine Sodium [Synthroid] 175 mcg PO DAILY 07/03/20 07/03/20 History Lisinopril [Zestril] 20 mg PO BID 07/03/20 07/03/20 History levOCARNitine [Levocarnitine] 330 mg PO DAILY 07/03/20 07/03/20 History Allergies Allergy/AdvReac Type Severity Reaction Status Date / Time levofloxacin [From Levaquin] Allergy Swelling Verified 07/03/20 12:38 Penicillins Allergy Swelling Verified 07/03/20 12:38 Sulfa (Sulfonamide Allergy Swelling Verified 07/03/20 12:38 Antibiotics) Physical Exam Vitals: Vital Signs Temp Pulse Pulse Resp BP BP Pulse Ox 07/04/20 15:15 98.0 F 68 16 114/64 91 L 07/04/20 14:45 98.4 F 68 16 112/55 95 07/04/20 14:35 98.4 F 69 16 114/62 92 L 07/04/20 12:46 97.9 F 72 18 139/66 93 L 07/04/20 11:50 68 07/04/20 11:41 69 07/04/20 08:58 97.6 F 69 18 144/67 97 07/04/20 07:41 64 07/04/20 07:27 63 07/04/20 04:00 72 16 120/60 96 07/04/20 00:00 71 16 120/58 92 L 07/03/20 21:14 97.9 F 77 16 142/65 99 07/03/20 21:13 97.9 F 77 16 142/65 99 07/03/20 20:24 76 18 111/70 99 07/03/20 20:00 77 16 116/51 98 07/03/20 19:24 105 H 23 125/70 98 07/03/20 18:39 97.9 F 75 18 109/60 07/03/20 18:09 97.8 F 79 18 117/63 07/03/20 17:59 97.9 F 77 18 126/62 07/03/20 17:41 98.2 F 74 18 126/61 07/03/20 17:21 98.1 F 76 18 107/48 Intake and Output 07/04/20 07/04/20 07/04/20 06:59 14:59 22:59 Intake Total 550 Output Total 200 Balance -200 550 Intake: Oral 550 Blood Product 0 Rc As-1 Unit 0 [id number] Output: Urine 200 Other: # Voids 1 1 Weight 83.5 kg Results 07/04/20 08:18 07/04/20 08:18 CBC 07/03/20 07/04/20 Range/Units 23:37 08:18 WBC 12.1 H 11.8 H (3.8-10.6) k/uL RBC 2.25 L 2.52 L (3.80-5.40) m/uL Hgb 6.5 L* 7.7 L (11.4-16.0) gm/dL Hct 20.7 L 22.9 L (34.0-46.0) % Plt Count 287 308 (150-450) k/uL Comprehensive Metabolic Panel 07/04/20 Range/Units 08:18 Sodium 135 L (137-145) mmol/L Potassium 3.9 (3.5-5.1) mmol/L Chloride 95 L (98-107) mmol/L Carbon Dioxide 32 H (22-30) mmol/L BUN 34 H (7-17) mg/dL Creatinine 3.34 H (0.52-1.04) mg/dL Glucose 157 H (74-99) mg/dL Calcium 9.0 (8.4-10.2) mg/dL Current Medications Generic Name Dose Route Start Last Admin Trade Name Freq PRN Reason Stop Dose Admin Acetaminophen 650 mg 07/03/20 20:00 Acetaminophen Tab 325 Mg Tab PO Q6HR PRN Mild Pain or Fever > 100.5 Albuterol/Ipratropium 3 ml 07/03/20 20:00 07/04/20 11:41 Ipratropium-Albuterol 3 Ml Neb INHALATION 3 ml RT-TID LOCO Administration Calcitriol 0.5 mcg 07/04/20 09:00 07/04/20 09:02 Calcitriol 0.25 Mcg Cap PO 0.5 mcg DAILY LOCO Administration Darbepoetin Herman 60 mcg 07/04/20 12:00 07/04/20 12:49 Darbepoetin Herman 60 Mcg/0.3 Ml Syringe SQ 60 mcg Q7D LOCO Administration Sodium Chloride 1,000 mls @ 20 mls/hr 07/03/20 13:00 07/04/20 12:50 Saline 0.9% IV Not Given .Q24H LOCO Insulin Detemir 25 unit 07/04/20 21:00 Insulin Detemir (Levemir) 100 Unit/Ml Syr SQ HS LOCO Levocarnitine 330 mg 07/04/20 09:00 07/04/20 09:08 Levocarnitine (With Sugar) 100 Mg/Ml Bottle PO Not Given DAILY LOCO Levothyroxine Sodium 100 mcg 07/04/20 06:30 07/04/20 06:08 Levothyroxine 100 Mcg Tab PO 100 mcg DAILY@0630 LOCO Administration Levothyroxine Sodium 75 mcg 07/04/20 06:30 07/04/20 06:08 Levothyroxine 75 Mcg Tab PO 75 mcg DAILY@0630 LOCO Administration Lisinopril 20 mg 07/03/20 21:00 07/04/20 09:02 Lisinopril 20 Mg Tab PO 20 mg BID LOCO Administration Metolazone 10 mg 07/04/20 09:00 07/04/20 09:03 Metolazone 5 Mg Tab PO 10 mg DAILY LOCO Administration Metoprolol Tartrate 100 mg 07/03/20 21:00 07/04/20 09:02 Metoprolol Tartrate 50 Mg Tab PO 100 mg BID LOCO Administration Naloxone HCl 0.2 mg 07/03/20 12:51 Naloxone 0.4 Mg/Ml 1 Ml Vial IV Q2M PRN Opioid Reversal Pantoprazole Sodium 40 mg 07/04/20 09:00 07/04/20 09:03 Pantoprazole 40 Mg/10 Ml Vial IVP 40 mg DAILY LOCO Administration Torsemide 20 mg 07/03/20 21:00 07/04/20 09:03 Torsemide 20 Mg Tab PO 20 mg BID LOCO Administration Intake and Output 07/04/20 07/04/20 07/04/20 06:59 14:59 22:59 Intake Total 550 Output Total 200 Balance -200 550 Intake: Oral 550 Blood Product 0 Rc As-1 Unit 0 [id number] Output: Urine 200 Other: # Voids 1 1 Weight 83.5 kg 07/04/20 08:18 07/04/20 08:18
[2020-07-04 16:55] LABS: Glucose,Whole Blood 104 mg/dL (75-99)
--- NOTE | 2020-07-04 17:46 | PN ---
PROGRESS NOTE DATE OF SERVICE: 07/04/2020 This 80-year-old woman who was admitted with shortness of breath secondary to possibly anemia, is being closely monitored at this time. The patient also has acute on chronic blood loss anemia. The patient received 3 units transfusion. Hemoglobin 7.7 at this time, creatinine 3.34, which is worsened. Sugar is also fluctuating at this time. Multiple consultants including nephrology following the patient closely. Gastroenterology saw the patient and recommended Dr. Pugh recommended EGD for further evaluation tomorrow. The Protonix is being continued. PAST MEDICAL HISTORY: Reviewed. REVIEW OF SYSTEMS: CARDIOVASCULAR: No angina. RESPIRATORY: As mentioned earlier. GI: As mentioned earlier. : No dysuria. NERVOUS SYSTEM: No numbness or weakness. CURRENT MEDICATIONS: Reviewed and include: DuoNeb, Tylenol, Levemir, Synthroid, Lopressor. Doses are reviewed. PHYSICAL EXAM: Patient is alert and oriented times three. Pulse 68, blood pressure 140/60, respirations 16, temperature 98 degrees, pulse ox 94% on 2 L. HEENT: Conjunctivae pale. NECK: No JVD. CARDIOVASCULAR: S1, S2 muffled. RESPIRATIONS: Breath sounds diminished in the bases. A few scattered rhonchi. ABDOMEN: Soft, nontender. LEGS are no edema. No swelling. NERVOUS SYSTEM: No focal deficits. LABORATORY DATA: WBC 11.8, hemoglobin 7.7. Sodium 135, creatinine 3.34. ASSESSMENT: 1. Shortness of breath possibly secondary to acute severe blood-loss anemia, acute on chronic gastrointestinal blood loss, possibly status post 3 units of transfusion. 2. History of recent peritonitis. 3. Troponin 0.078 indeterminate. 4. History of end-stage renal disease on peritoneal dialysis. 5. History of coronary artery disease. 6. History of diabetes type 2. 7. History of duodenal ulcer. 8. Hypertension. 9. Hyperlipidemia. 10.History of massive blood transfusions remotely. 11.History of degenerative joint disease. 12.History of hypothyroidism. 13.History of cardiac valve replacement. 14.History of coronary artery disease, coronary artery bypass grafting stent. 15.Obesity with body mass of 30.6. RECOMMENDATIONS AND DISCUSSION: This 80-year-old gentleman with multiple complex medical issues, we will monitor the patient closely. Continue the current medications, management and symptomatic treatment. I would also recommend the third unit to be transfused because of continued symptomatic anemia. Patient is still weak and very pale. We will continue to monitor. Repeat labs will be ordered. Otherwise, closely follow with Dr. Pugh and possible endoscopes tomorrow. The prognosis guarded because of multiple complex medical issues. Further recommendations to follow. MMODL / IJN: [id number] / MTDD
[2020-07-04 17:59] LABS: % Iron Saturation 49.36 (12.00-45.00)
[2020-07-04 18:08] LABS: Folate, Serum 3.9 ng/mL
[2020-07-04 18:39] LABS: Ferritin 830.5 ng/mL (10.0-291.0)
[2020-07-04] MEDS: INSULIN DETEMIR (LEVEMIR) 100 UNIT/ML SYR SQ SCH (20:20)
[2020-07-04 20:50] LABS: Glucose,Whole Blood 95 mg/dL (75-99)
[2020-07-05 06:34] LABS: Glucose,Whole Blood 114 mg/dL (75-99)
[2020-07-05] MEDS: IPRATROPIUM-ALBUTEROL 3 ML NEB INHALATION SCH ×3 (07:56→19:35)
[2020-07-05] MEDS ORDERED: PROPOFOL 10 MG/ML 20 ML VIAL IV ONE (08:00)
[2020-07-05] MEDS ORDERED: LIDOCAINE 1% INJ 10MG/ML (20 ML MDV) ONE (08:00)
[2020-07-05] MEDS ORDERED: LACTATED RINGERS 1,000 ML IV ONE (08:02)
--- NOTE | 2020-07-05 08:24 | P.PCN ---
Date of Procedure: 07/05/20 Description of Procedure: BRIEF HISTORY: 80-year-old female with multiple medical comorbidities including diabetes mellitus, coronary artery disease, hyperlipidemia, hypertension, hypothyroidism, degenerative joint disease, end-stage renal disease on hemodialysis and history of anemia who presented to the hospital due to shortness of breath and abnormal labs. Patient has been experiencing some weakness and shortness of breath and was found to be anemic. Patient had a hemoglobin of 5.3 on presentation with macrocytic indices. Currently hemoglobin is 7.7. The patient denies any signs or symptoms of GI bleeding. Stool testing was positive for blood. The patient reports she has had similar complaints in the past and had extensive workup approximately 2-3 years ago and [facility] at that time the patient reports 3 EGDs, 2 colonoscopies and video capsule endoscopy and does not believe there were able to find a definitive source of bleeding at that time. She denies any coffee-ground emesis, hematemesis, hematochezia or melena. No abdominal pain reported. PROCEDURE PERFORMED: Esophagogastroduodenoscopy with biopsy. PREOPERATIVE DIAGNOSIS: Anemia. ESTIMATED BLOOD LOSS: Minimal. IV sedation per anesthesia. PROCEDURE: After informed consent was obtained, the patient was brought into the endoscopy unit. IV sedation was administered by Anesthesia under continuous monitoring. Initially the Olympus GIF-190 video endoscope was inserted into the mouth. Esophagus intubated without any difficulty. It was gradually advanced into the stomach and duodenum and carefully examined. The bulb and the second part of the duodenum appeared normal, except for some mild punctate erythema suggestive of mild duodenitis with biopsies taken. The scope at this time was withdrawn to the stomach, adequately insufflated with air, and upon careful examination, mucosa of the antrum, body, cardia and the fundus appeared keri, except for some mild punctate erythema in the antrum and body suggestive of mild gastritis with biopsies taken l. The scope was then withdrawn into the esophagus. The GE junction was located at 37 cm from the incisors, with a small 2 cm hiatal hernia noted. The esophagus appeared normal. There were no erosions or ulcerations seen and the patient tolerated the procedure well. IMPRESSION: 1. No active bleeding, old blood or pathology to explain anemia. 2. Mild gastritis. 3. Mild duodenitis. 4. Small hiatal hernia. 5. Biopsies of the duodenum, antrum and body. RECOMMENDATIONS: The findings of this examination were discussed with the patient.. Okay for diet. Okay to continue current medical management. Reticulocyte count, iron levels, folate and vitamin B12 and folate all Normal with no evidence of iron deficiency anemia. Continue current medical management.
[2020-07-05] MEDS: levOCARNitine (WITH SUGAR) 100 MG/ML BOTTLE PO SCH (08:31)
[2020-07-05] MEDS: lisinopriL 20 MG TAB PO SCH ×2 (08:50→20:54)
[2020-07-05] MEDS: PANTOPRAZOLE 40 MG/10 ML VIAL IVP SCH (08:50)
[2020-07-05] MEDS: METOPROLOL TARTRATE 50 MG TAB PO SCH ×2 (08:50→20:54)
[2020-07-05] MEDS: LEVOTHYROXINE 75 MCG TAB PO SCH (08:50)
[2020-07-05] MEDS: LEVOTHYROXINE 100 MCG TAB PO SCH (08:50)
[2020-07-05] MEDS: metOLazone 5 MG TAB PO SCH (08:50)
[2020-07-05] MEDS: TORSEMIDE 20 MG TAB PO SCH ×2 (08:50→20:54)
--- NOTE | 2020-07-05 10:17 | P.PN ---
Subjective Progress Note Date: 07/05/20 Principal diagnosis: This 80-year-old female known to us with ESRD on hemodialysis recently converted from peritoneal dialysis after an episode of peritonitis and her PD catheter was taken out. She is on dialysis Monday. She came in to the hospital after her dialysis yesterday because of generalized weakness and phosphorous have anemia hemoglobin was down from 92 days ago to 5.3. Patient denies any prior BLEEDING through the GI tract or anywhere else. No abdominal pain heartburn and GERD. No melena. Supposedly she has had previous GI bleeding 3 years ago and had colonoscopy and EGD She is known with ASHD, coronary artery bypass graft and valve replacement in the aortic valve, stent in the heart and diabetes mellitus. She has a permacath on the right side Monday after being transfused 2 units of blood she is feeling fine. No chest pain shortness of breath dizziness no nausea vomiting abdominal pain. Vital signs are stable This morning she had EGD which shows mild inflammation in upper GI. Objective - Vital Signs Vital signs: Vital Signs Temp 97.9 F 07/05/20 07:38 Pulse 61 07/05/20 09:48 Resp 16 07/05/20 09:48 BP 155/61 07/05/20 09:48 Pulse Ox 95 07/05/20 09:48 Intake & Output 07/04/20 07/05/20 07/05/20 18:59 06:59 18:59 Intake Total 975 300 Balance 975 300 Weight 83 kg Intake: IV 300 Oral 665 Blood Product 310 Rc As-1 Unit 310 [id number] Other: # Voids 1 1 # Bowel Movements 1 Examination she is on 2 L nasal cannula comfortable sitting. HEENT exam no JVP neck is supple no facial asymmetry Lungs are clear to auscultation with bilateral basal crackles not clear but cough Heart sounds are unremarkable for any murmur rub gallop Abdomen soft nontender Extremity exam was no edema Neurologically awake alert oriented. - Labs CBC & Chem 7: 07/04/20 08:18 07/04/20 08:18 Labs: Abnormal Lab Results - Last 24 Hours (Table) 07/03/20 07/04/20 07/04/20 Range/Units 13:16 08:18 08:18 Retic Count 8.2 H (0.5-2.0) % POC Glucose (mg/dL) (75-99) mg/dL Hemoglobin A1c 6.4 H (4.0-6.0) % % Saturation (12.00-45.00) Ferritin (10.0-291.0) ng/mL Troponin I (0.000-0.034) ng/mL Crossmatch See Detail 07/04/20 07/04/20 07/04/20 Range/Units 08:18 11:56 12:15 Retic Count (0.5-2.0) % POC Glucose (mg/dL) 67 L 67 L (75-99) mg/dL Hemoglobin A1c (4.0-6.0) % % Saturation 49.36 H (12.00-45.00) Ferritin 830.5 H (10.0-291.0) ng/mL Troponin I (0.000-0.034) ng/mL Crossmatch 07/04/20 07/04/20 07/04/20 Range/Units 12:40 16:53 17:27 Retic Count (0.5-2.0) % POC Glucose (mg/dL) 132 H 104 H (75-99) mg/dL Hemoglobin A1c (4.0-6.0) % % Saturation (12.00-45.00) Ferritin (10.0-291.0) ng/mL Troponin I 0.092 H* (0.000-0.034) ng/mL Crossmatch 07/05/20 Range/Units 05:57 Retic Count (0.5-2.0) % POC Glucose (mg/dL) 114 H (75-99) mg/dL Hemoglobin A1c (4.0-6.0) % % Saturation (12.00-45.00) Ferritin (10.0-291.0) ng/mL Troponin I (0.000-0.034) ng/mL Crossmatch Assessment and Plan Plan: Impression 1. ESRD on hemodialysis Monday with repeat cath on the right side. She was recently switched over from peritoneal dialysis after the peritonitis episode needing PD catheter removal dated 06/12/2020. 2. Admitted with weakness and anemia hemoglobin was 5.3 down from 9. No obvious cause but has been previously known with peptic ulcer disease, repeat EGD this morning shows mild gastritis 3. Anemia, cause not clear. Mild peptic ulcer disease on EGD this morning. Rule out iron deficiency . No labs available this morning hemoglobin was 7.7 yesterday. Iron saturations 49% 4. History of aortic valve replacement, CABG, coronary stent. 5. History of diabetes. 6. Bilateral basal crackles chronically present probably computed tomography scan has been done recently on 06/12/2020 Recommendation 1. Will maintain her Monday dialysis schedule. 2. Continue Aranesp at 60 g per week 3. May be discharged from nephrological perspective
[2020-07-05 10:55] LABS: Anisocytosis Slight; Basophils # (A) 0.1 k/uL (0-0.2); Basophils % (A) 1 %; Eosinophils # (A) 1.1 k/uL (0-0.7); Eosinophils % (A) 12 %; HGB 8.8 gm/dL (11.4-16.0); Hypochromasia Slight; Lymphocytes % (A) 11 %; MCH 30.9 pg (25.0-35.0); MCV 90.9 fL (80.0-100.0); Mean Platelet Volume 8.8; Monocytes # (A) 0.6 k/uL (0-1.0); Monocytes % (A) 6 %; Neutrophils # (A) 6.3 k/uL (1.3-7.7); Neutrophils % (A) 69 %; Platelet Count 314 k/uL (150-450); Poikilocytosis Slight; RBC 2.86 m/uL (3.80-5.40); RDW 18.7 % (11.5-15.5); WBC 9.2 k/uL (3.8-10.6)
[2020-07-05 11:51] LABS: Glucose,Whole Blood 161 mg/dL (75-99)
[2020-07-05] MEDS: SODIUM CHLORIDE 0.9% 1,000 ML IV SCH (14:43)
--- NOTE | 2020-07-05 15:35 | PN ---
PROGRESS NOTE DATE OF SERVICE: 07/05/2020 INTERVAL HISTORY: This 80-year-old woman was admitted with shortness of breath secondary to acute severe blood loss anemia, had multiple transfusions. After 3 units of transfusion hemoglobin has improved to 8.8 at this time. The patient also underwent EGD by Dr. Pugh and EGD showed no acute bleeding currently, but mild gastritis and mild duodenitis. A small hiatal hernia was noted. Biopsies were taken. Patient closely monitored. Patient also received hemodialysis Monday, , Monday schedule. PAST MEDICAL HISTORY: Reviewed. REVIEW OF SYSTEMS: CARDIOVASCULAR: As mentioned earlier. RESPIRATORY: As mentioned earlier. GI: As mentioned earlier. : As mentioned earlier. NERVOUS SYSTEM: No numbness or weakness. CURRENT MEDICATIONS: Reviewed include Tylenol, DuoNeb, Rocaltrol, Levemir, Synthroid, Zestril, Zaroxolyn, Lopressor, Narcan, Protonix. Doses reviewed. PHYSICAL EXAM: GENERAL: Patient is alert and oriented times three. VITAL SIGNS: Pulse 57, blood pressure 151/77, respirations 16, temperature 98.2, pulse ox 94% on 2 liters. HEENT: Conjunctivae normal. Conjunctivae are pale. NECK: No jugular venous distention. No carotid bruits. RESPIRATORY: Breath sounds diminished at the bases. A few scattered rhonchi. HEART: S1 and S2, muffled. ABDOMEN: Soft, obese, no tenderness. EXTREMITIES: No edema, no swelling. NERVOUS: No focal deficits. LAB STUDIES: WBC 9.3, hemoglobin is 8.8. ASSESSMENT: 1. Shortness of breath possibly secondary to acute blood loss anemia, acute on chronic gastrointestinal blood loss anemia, status post 3 blood transfusions. 2. Status post EGD showing mild gastritis, mild duodenitis and small hiatal hernia. 3. History of recent peritonitis. 4. Troponin 0.078, indeterminate. 5. History of end-stage renal disease on peritoneal dialysis. 6. History of coronary artery disease. 7. History of diabetes mellitus type 2. 8. History of duodenal ulcer previously. 9. Hypertension. 10.Hyperlipidemia. 11.History of massive blood transfusions remotely. 12.History of degenerative joint disease. 13.Hypothyroidism. 14.History of cardiac valve replacement. 15.History of coronary artery disease, coronary artery bypass graft with stent. 16.Obesity with body mass of 30.6. RECOMMENDATIONS AND DISCUSSION: In this 80-year-old woman who presented with multiple complex medical issues, will monitor the patient closely. Continue the current management. Repeat hemoglobin tomorrow. Otherwise, hemodialysis and monitor fluid/electrolyte balance closely. Continue the rest of medications. Monitor blood sugars closely. Prognosis guarded because of multiple complex medical issues. Further recommendations to follow. Closely follow with Cardiology. MMMARYSE / LEIGHN: [id number] /
--- NOTE | 2020-07-05 15:51 | P.PN ---
Subjective HISTORY OF PRESENTING ILLNESS Patient is a pleasant 80-year-old female with history of diabetes mellitus type 2, coronary artery disease status post CABG 2018, hyperlipidemia, hypertension, hypothyroidism, valvular heart disease status post unknown valve replacement 2018, end-stage renal disease status post peritoneal dialysis and recently switched to hemodialysis one month ago, anemia who presents secondary to increasing shortness breath over the course of 1 week. Patient states she had been in her normal state of health however over the last 1 week has noted increased dyspnea on exertion. She was found to have hemoglobin of 5.3 on prese ntation and has been transfused 3 units packed red blood cells. She states she is feeling much better and is able to walk around the room without as much difficulty. She follows with cardiology with Dr. Barker from [facility] and initially had stenting 7 years ago and then had bypass surgery as well as valve replacement 3 years ago. She states she has done well since that time and has been on Plavix since that time. She denies any angina-type symptoms. She denies any history of heart failure or history of "heart damage ". She believes her last echocardiogram was a few years ago. We'll work was performed with initial troponin 0.078, no repeat. Patient was found to be Hemoccult positive. Negative for rotavirus. EKG showed normal sinus rhythm, normal axis, T-wave inversions in leads 3 and aVF, mild ST depressions in leads V4 through V6. 07/05 Patient seen and examined. Patient had EGD performed which showed no active bleed, dry blood. She denies any bowel movements and no melena or hematochezia. She denies any chest pain or pressure. Hemoglobin today 8.8. Denies any shortness breath and is scheduled for hemodialysis tomorrow. REVIEW OF SYSTEMS At the time of my exam: CONSTITUTIONAL: Denies fever or chills. CARDIOVASCULAR: Denies chest pain, shortness of breath, orthopnea, PND or palpitations. RESPIRATORY: Denies cough. GASTROINTESTINAL: Denies abdominal pain, diarrhea, constipation, nausea or vomiting. MUSCULOSKELETAL: Denies myalgias. NEUROLOGIC: Denies numbness, tingling or weakness. ENDOCRINE: Denies fatigue, weight change, polydipsia or polyurina. GENITOURINARY: Denies burning, hematuria or urgency with micturation. HEMATOLOGIC: Denies history of anemia or bleeding. PHYSICAL EXAMINATION Vital signs reviewed. CONSTITUTIONAL: No apparent distress. HEENT: Head is normocephalic. Pupils are equal, round. Sclerae anicteric. Mucous membranes of the mouth are moist. No JVD. No carotid bruit. CHEST EXAMINATION: Lungs are clear to auscultation. No chest wall tenderness is noted on palpation or with deep breathing. HEART EXAMINATION: Regular rate and rhythm. S1, S2 heard. +2/6 systolic murmur, no gallops or rub. ABDOMEN: Soft, nontender. Positive bowel sounds. EXTREMITIES: 2+ peripheral pulses, no lower extremity edema and no calf ten derness. NEUROLOGIC EXAMINATION: Patient is awake, alert and oriented x3. ASSESSMENT 1. Elevated troponin, likely type II non-STEMI secondary to anemia 2. Severe symptomatic anemia with hemoglobin in the fives, likely acute blood loss anemia 3. Hemoccult-positive 4. Coronary artery disease status post CABG and PCI 5. Valvular heart disease status post valve replacement, likely aortic with a ortic stenosis murmur 6. Essential hypertension 7. Diabetes mellitus type 2 8. Chronic kidney disease, end-stage renal disease on hemodialysis, previously on peritoneal dialysis PLAN Mildly elevated troponins likely type II mechanism from anemia as well as CKD. Patient not currently a good interventional candidate with severe anemia and concern of GI bleed. Patient without any angina-type symptoms and cleared for discharge from a cardiology standpoint. Ideally aspirin given her history of CAD and would discontinue home Plavix. Followup with primary information management officer Dr Barker in 1 week. Objective - Vital Signs Vital signs: Vital Signs Temp 98.2 F 07/05/20 12:14 Pulse 57 L 07/05/20 12:14 Resp 16 07/05/20 12:14 BP 151/77 07/05/20 12:14 Pulse Ox 95 07/05/20 12:14 Intake & Output 07/04/20 07/05/20 07/05/20 18:59 06:59 18:59 Intake Total 975 420 Balance 975 420 Weight 83 kg Intake: IV 300 Oral 665 120 Blood Product 310 Rc As-1 Unit 310 [id number] Other: # Voids 1 1 # Bowel Movements 1 - Labs CBC & Chem 7: 07/05/20 10:38 07/04/20 08:18 Labs: Abnormal Lab Results - Last 24 Hours (Table) 07/03/20 07/04/20 07/04/20 Range/Units 13:16 08:18 16:53 RBC (3.80-5.40) m/uL Hgb (11.4-16.0) gm/dL Hct (34.0-46.0) % RDW (11.5-15.5) % Eosinophils # (0-0.7) k/uL POC Glucose (mg/dL) 104 H (75-99) mg/dL % Saturation 49.36 H (12.00-45.00) Ferritin 830.5 H (10.0-291.0) ng/mL Troponin I (0.000-0.034) ng/mL Crossmatch See Detail 07/04/20 07/05/20 07/05/20 Range/Units 17:27 05:57 10:38 RBC 2.86 L (3.80-5.40) m/uL Hgb 8.8 L (11.4-16.0) gm/dL Hct 26.0 L (34.0-46.0) % RDW 18.7 H (11.5-15.5) % Eosinophils # 1.1 H (0-0.7) k/uL POC Glucose (mg/dL) 114 H (75-99) mg/dL % Saturation (12.00-45.00) Ferritin (10.0-291.0) ng/mL Troponin I 0.092 H* (0.000-0.034) ng/mL Crossmatch 07/05/20 Range/Units 11:49 RBC (3.80-5.40) m/uL Hgb (11.4-16.0) gm/dL Hct (34.0-46.0) % RDW (11.5-15.5) % Eosinophils # (0-0.7) k/uL POC Glucose (mg/dL) 161 H (75-99) mg/dL % Saturation (12.00-45.00) Ferritin (10.0-291.0) ng/mL Troponin I (0.000-0.034) ng/mL Crossmatch
[2020-07-05 16:38] LABS: Glucose,Whole Blood 212 mg/dL (75-99)
[2020-07-05 20:48] LABS: Glucose,Whole Blood 202 mg/dL (75-99)
[2020-07-05] MEDS: INSULIN DETEMIR (LEVEMIR) 100 UNIT/ML SYR SQ SCH (20:54)
[2020-07-06] MEDS: LEVOTHYROXINE 100 MCG TAB PO SCH (06:14)
[2020-07-06] MEDS: LEVOTHYROXINE 75 MCG TAB PO SCH (06:14)
[2020-07-06 06:55] LABS: Glucose,Whole Blood 146 mg/dL (75-99)
[2020-07-06] MEDS: lisinopriL 20 MG TAB PO SCH (08:43)
[2020-07-06] MEDS: METOPROLOL TARTRATE 50 MG TAB PO SCH (08:44)
[2020-07-06] MEDS: metOLazone 5 MG TAB PO SCH (08:44)
[2020-07-06] MEDS: TORSEMIDE 20 MG TAB PO SCH (08:44)
[2020-07-06] MEDS: levOCARNitine (WITH SUGAR) 100 MG/ML BOTTLE PO SCH (08:45)
[2020-07-06] MEDS: PANTOPRAZOLE 40 MG/10 ML VIAL IVP SCH (08:51)
[2020-07-06] MEDS: IPRATROPIUM-ALBUTEROL 3 ML NEB INHALATION SCH ×2 (09:22→11:37)
[2020-07-06 10:32] LABS: Anisocytosis Slight; Basophils # (A) 0.1 k/uL (0-0.2); Basophils % (A) 1 %; Eosinophils # (A) 1.3 k/uL (0-0.7); Eosinophils % (A) 13 %; HCT 26.3 % (34.0-46.0); HGB 8.9 gm/dL (11.4-16.0); Hypochromasia Slight; Lymphocytes # (A) 1.1 k/uL (1.0-4.8); Lymphocytes % (A) 11 %; MCH 31.3 pg (25.0-35.0); MCHC 33.8 g/dL (31.0-37.0); MCV 92.6 fL (80.0-100.0); Macrocytosis Slight; Mean Platelet Volume 8.7; Monocytes # (A) 0.7 k/uL (0-1.0); Monocytes % (A) 7 %; Neutrophils # (A) 6.6 k/uL (1.3-7.7); Neutrophils % (A) 66 %; Platelet Count 316 k/uL (150-450); Poikilocytosis Slight; RBC 2.84 m/uL (3.80-5.40); RDW 18.7 % (11.5-15.5); WBC 9.9 k/uL (3.8-10.6)
--- NOTE | 2020-07-06 10:38 | P.PN ---
Subjective Progress Note Date: 07/06/20 Principal diagnosis: Shortness of breath, anemia This is a pleasant 80-year-old female with a past medical history including end- stage renal disease on hemodialysis. The patient was on Plavix which is currently on hold. She presented to the emergency department initially with shortness of breath and weakness, was found to have an admission hemoglobin of 5.3. She has been denying any signs or symptoms of active GI bleed. She underwent an EGD yesterday with no active bleeding, mild gastritis, mild to tinnitus, small hiatal hernia. Iron studies are normal. The patient states she has had La symptoms 2-3 years ago with extensive workup with EGDs, colonoscopies and small bowel capsule for which all were negative for any signs of GI bleed. Today she is seen and examined without any signs or symptoms of GI bleed, denies any abdominal pain, nausea, or vomiting. She will be getting her hemodialysis treatment today. Today's hemoglobin was stable at 8.8, today's l abs are currently pending. Objective - Vital Signs Vital signs: Vital Signs Temp 97.7 F 07/06/20 02:00 Pulse 63 07/06/20 02:04 Resp 18 07/06/20 02:04 BP 117/56 07/06/20 02:00 Pulse Ox 93 L 07/06/20 02:00 Intake & Output 07/05/20 07/06/20 07/06/20 18:59 06:59 18:59 Intake Total 660 10 240 Balance 660 10 240 Intake: IV 300 Intake, IV Titration 10 Amount Sodium Chloride 0.9% 1, 10 000 ml @ 20 mls/hr IV . Q24H [facility] Rx#:[id number] Oral 360 240 Other: Voiding Method Toilet # Voids 2 1 - Exam General appearance: The patient is alert, oriented, appears in no acute distress. HET: Head is normocephalic and atraumatic. Conjunctiva pink. Sclera anicteric. Neck: Supple without lymphadenopathy. Abdomen: Soft, nontender, nondistended with bowel sounds. No guarding or rigidity. Extremities: Normal skin color and turgor. No pedal edema Skin: No rashes, no jaundice Neurological: No focal deficits. Alert and oriented 3. - Labs CBC & Chem 7: 07/05/20 10:38 07/04/20 08:18 Labs: Abnormal Lab Results - Last 24 Hours (Table) 07/05/20 07/05/20 07/05/20 Range/Units 10:38 11:49 16:37 RBC 2.86 L (3.80-5.40) m/uL Hgb 8.8 L (11.4-16.0) gm/dL Hct 26.0 L (34.0-46.0) % RDW 18.7 H (11.5-15.5) % Eosinophils # 1.1 H (0-0.7) k/uL POC Glucose (mg/dL) 161 H 212 H (75-99) mg/dL 07/05/20 07/06/20 Range/Units 19:50 06:25 RBC (3.80-5.40) m/uL Hgb (11.4-16.0) gm/dL Hct (34.0-46.0) % RDW (11.5-15.5) % Eosinophils # (0-0.7) k/uL POC Glucose (mg/dL) 202 H 146 H (75-99) mg/dL Assessment and Plan (1) Macrocytic anemia Narrative/Plan: 80-year-old female with multiple medical comorbidities presenting for shortness of breath and found to have a macrocytic anemia with hemoglobin of 5.3 on presentation. Currently hemoglobin 7.7 after transfusion. Patient reports an extensive workup in the past approximately 2-3 years ago at [facility] when she had similar findings of anemia she reports 3 EGDs at that time, 2 colonoscopies and a video capsule endoscopy with no definitive source of bleeding found at that time. The patient does have end-stage renal disease and is on hemodialysis and reports that she does receive Epogen and is also had iron transfusions in the past. She has received no further blood products since the episode of anemia 2-3 years ago and has been doing well. She denies any gross signs or symptoms of bleeding. Unclear etiology but suspicion is that anemia is likely multifactorial given anemia of chronic disease and end-stage renal disease, possibility of a AVM, peptic ulcer disease or other gastrointestinal etiology contributing to anemia. Patient is status post upper endoscopy with no active bleeding, mild gastritis, mild duodenitis, small hiatal hernia. No further endoscopic evaluation is planned at this time, we'll continue to monitor as anemia is likely multifactorial. 2 chronic disease and end-stage renal disease. Current Visit: Yes Status: Acute Code(s): D53.9 - NUTRITIONAL ANEMIA, UNSPECIFIED SNOMED Code(s): 83041660 (2) Positive occult stool blood test Current Visit: Yes Status: Acute Code(s): R19.5 - OTHER FECAL ABNORMALITIES SNOMED Code(s): 88106898 Plan: 1. Supportive care 2. Diet as tolerated 3. Continue to monitor hemoglobin and hematocrit and transfuse as needed 4. Anemia workup added to admission labs, reviewed 5. Status post EGD with no active signs of bleeding, no further endoscopic evaluation is planned at this time 6. Continue Protonix therapy Thank you for this consultation, we will continue to follow Dr. Jose Luque I agree with the dictator's note, documented as a scribe by Gale Walker.
[2020-07-06 10:55] LABS: Albumin 3.2 g/dL (3.5-5.0); Potassium 4.6 mmol/L (3.5-5.1); Total Bilirubin 0.3 mg/dL (0.2-1.3); Total Protein 6.2 g/dL (6.3-8.2)
--- NOTE | 2020-07-06 11:56 | P.PN ---
Subjective Patient is seen in follow-up for incisional disease. She is maintained on hemodialysis on Monday and Monday schedule. Tolerating dialysis well. No active bleeding. Hemodynamically stable. Vital signs are stable. General: The patient appeared well nourished and normally developed. HEENT: Head exam is unremarkable. Neck is without jugular venous distension. LUNGS: Breath sounds decreased. HEART: Rate and Rhythm are regular. ABDOMEN: Soft, nontender. EXTREMITITES: No edema. Objective - Vital Signs Vital signs: Vital Signs Temp 97.5 F L 07/06/20 08:00 Pulse 82 07/06/20 08:00 Resp 18 07/06/20 08:00 BP 154/62 07/06/20 08:00 Pulse Ox 94 L 07/06/20 08:00 Intake & Output 07/05/20 07/06/20 07/06/20 18:59 06:59 18:59 Intake Total 660 10 240 Balance 660 10 240 Intake: IV 300 Intake, IV Titration 10 Amount Sodium Chloride 0.9% 1, 10 000 ml @ 20 mls/hr IV . Q24H [facility] Rx#:[id number] Oral 360 240 Other: Voiding Method Toilet Toilet # Voids 2 1 - Labs CBC & Chem 7: 07/06/20 08:24 07/06/20 08:24 Labs: Abnormal Lab Results - Last 24 Hours (Table) 07/05/20 07/05/20 07/06/20 Range/Units 16:37 19:50 06:25 RBC (3.80-5.40) m/uL Hgb (11.4-16.0) gm/dL Hct (34.0-46.0) % RDW (11.5-15.5) % Eosinophils # (0-0.7) k/uL Sodium (137-145) mmol/L BUN (7-17) mg/dL Creatinine (0.52-1.04) mg/dL Glucose (74-99) mg/dL POC Glucose (mg/dL) 212 H 202 H 146 H (75-99) mg/dL Total Protein (6.3-8.2) g/dL Albumin (3.5-5.0) g/dL 07/06/20 07/06/20 Range/Units 08:24 08:24 RBC 2.84 L (3.80-5.40) m/uL Hgb 8.9 L (11.4-16.0) gm/dL Hct 26.3 L (34.0-46.0) % RDW 18.7 H (11.5-15.5) % Eosinophils # 1.3 H (0-0.7) k/uL Sodium 135 L (137-145) mmol/L BUN 51 H (7-17) mg/dL Creatinine 5.15 H (0.52-1.04) mg/dL Glucose 176 H (74-99) mg/dL POC Glucose (mg/dL) (75-99) mg/dL Total Protein 6.2 L (6.3-8.2) g/dL Albumin 3.2 L (3.5-5.0) g/dL Assessment and Plan Plan: Assessment: 1. End-stage renal disease maintained on hemodialysis on Monday schedule. 2. GI bleed status post blood transfusions. No active bleeding noted on EGD. 3. Anemia of chronic kidney disease maintained on Aranesp. 4. Hypertension with chronic kidney disease. Stable. 5. Diabetes mellitus. Plan: Currently seen was undergoing hemodialysis. Next treatment on Monday. Stable to be discharged home from nephrology standpoint. Stop metolazone.
[2020-07-06 12:21] LABS: Glucose,Whole Blood 117 mg/dL (75-99)
--- NOTE | 2020-07-06 14:14 | P.PN ---
Subjective Progress Note Date: 07/06/20 This is a 80-year-old female with history of coronary artery disease with previous bypass surgery, valve replacement, diabetes and hyperlipidemia who was admitted to the hospital with increasing shortness of breath. She was found to have severe anemia. She received 3 units of blood. She is feeling much better. She also has chronic renal failure on dialysis. She is sitting up in the chair and feeling much better and hoping to go home. She is going to have dialysis today and possibly discharge home. No complaints of any chest pain or shortness of breath. Lungs are clear. Heart is regular. No JVD. Elevated troponins were felt to be secondary to anemia. Non-STEMI, type II. PT will discontinue Plavix. Pt discharged home. Follow-up with primary pararescue manager Objective - Vital Signs Vital signs: Vital Signs Temp 97.5 F L 07/06/20 08:00 Pulse 82 07/06/20 08:00 Resp 18 07/06/20 08:00 BP 154/62 07/06/20 08:00 Pulse Ox 94 L 07/06/20 08:00 Intake & Output 07/05/20 07/06/20 07/06/20 18:59 06:59 18:59 Intake Total 660 10 240 Balance 660 10 240 Intake: IV 300 Intake, IV Titration 10 Amount Sodium Chloride 0.9% 1, 10 000 ml @ 20 mls/hr IV . Q24H [facility] Rx#:[id number] Oral 360 240 Other: Voiding Method Toilet Toilet # Voids 2 1 - Exam GENERAL EXAM: Patient is alert and oriented and doesn't appear to be in any acute distress HEENT: Normocephalic. Normal reaction of pupils, equal size, normal range of extraocular motion. No erythema or exudates in the throat. NECK: No masses, no nuchal rigidity. CHEST: No chest wall deformity. LUNGS: Equal air entry with no crackles or wheeze. HEART: S1 and S2 normal with no audible mumurs or gallops. Regular rhythm, femorals equal on both sides.. ABDOMEN: No hepatosplenomegaly, normal bowel sounds, no guarding or rigidity. SKIN: No rashes CENTRAL NERVOUS SYSTEM: No focal deficits. EXTREMITIES: No cyanosis, clubbing or edema. - Labs CBC & Chem 7: 07/06/20 08:24 07/06/20 08:24 Labs: Abnormal Lab Results - Last 24 Hours (Table) 07/05/20 07/05/20 07/06/20 Range/Units 16:37 19:50 06:25 RBC (3.80-5.40) m/uL Hgb (11.4-16.0) gm/dL Hct (34.0-46.0) % RDW (11.5-15.5) % Eosinophils # (0-0.7) k/uL Sodium (137-145) mmol/L BUN (7-17) mg/dL Creatinine (0.52-1.04) mg/dL Glucose (74-99) mg/dL POC Glucose (mg/dL) 212 H 202 H 146 H (75-99) mg/dL Total Protein (6.3-8.2) g/dL Albumin (3.5-5.0) g/dL 07/06/20 07/06/20 07/06/20 Range/Units 08:24 08:24 11:53 RBC 2.84 L (3.80-5.40) m/uL Hgb 8.9 L (11.4-16.0) gm/dL Hct 26.3 L (34.0-46.0) % RDW 18.7 H (11.5-15.5) % Eosinophils # 1.3 H (0-0.7) k/uL Sodium 135 L (137-145) mmol/L BUN 51 H (7-17) mg/dL Creatinine 5.15 H (0.52-1.04) mg/dL Glucose 176 H (74-99) mg/dL POC Glucose (mg/dL) 117 H (75-99) mg/dL Total Protein 6.2 L (6.3-8.2) g/dL Albumin 3.2 L (3.5-5.0) g/dL Assessment and Plan (1) CAD (coronary artery disease) Current Visit: Yes Status: Acute Code(s): I25.10 - ATHSCL HEART DISEASE OF [place] CORONARY ARTERY W/O ANG PCTRS SNOMED Code(s): 54921857 (2) Macrocytic anemia Current Visit: Yes Status: Acute Code(s): D53.9 - NUTRITIONAL ANEMIA, UNSPECIFIED SNOMED Code(s): 28674352 (3) History of aortic valve replacement Current Visit: Yes Status: Acute Code(s): Z95.2 - PRESENCE OF PROSTHETIC HEART VALVE SNOMED Code(s): 9864225741571 Plan: Patient is clinically stable. Shortness of breath resolved. No angina. Patient to follow with primary care physician and her pararescue manager
[2020-07-06 14:26] VITALS: BP 135/81; PULSE 65; RESP 20; TEMP 97
--- NOTE | 2020-07-06 23:09 | DS ---
DISCHARGE SUMMARY DATE OF SERVICE: 07/06/2020 FINAL DIAGNOSES: 1. Shortness of breath, possibly secondary to acute blood loss anemia, acute on chronic gastrointestinal blood loss anemia, status post 3 blood transfusions. 2. Status post EGD showing mild gastritis, mild duodenitis and small hiatal hernia. 3. History of recent peritonitis. 4. Troponin 0.078, indeterminate. 5. History of end-stage renal disease, on hemodialysis. 6. History of coronary artery disease. 7. Diabetes mellitus, type 2. 8. History of duodenal ulcer previously. 9. Hypertension. 10.Hyperlipidemia. 11.History of massive blood transfusions remotely. 12.History of degenerative joint disease. 13.Hypothyroidism. 14.History of cardiac valve replacement. 15.History of coronary artery disease, coronary artery bypass grafting, stent. 16.Obesity with body mass index of 30.6. DISCHARGE DISPOSITION: The patient will be discharged in stable condition with guarded prognosis. Discharge cleared by multiple consultants. HISTORY OF PRESENT ILLNESS: This 80-year-old woman with a past medical history of multiple medical problems, including shortness of breath, possibly secondary to blood loss anemia. Hemoglobin was fairly low around 5. Patient was transfused 3 units. Hemoglobin improved to 8.9. EGD showed findings as above. Treated symptomatically. Nephrology saw the patient. Patient improved significantly. On exam, vitals are stable. CARDIOVASCULAR SYSTEM: S1, S2 muffled. ABDOMEN: Soft. NERVOUS SYSTEM: No focal deficit. DISCHARGE ADVICE AND MEDICATIONS: 1. Discharge diet is cardiac. 2. Activity limited until followup. 3. Follow up with Dr. Lacey as recommended. 4. Follow up with Dr. Luque as recommended. 5. Calcitriol 0.5 daily. 6. Demadex 20 mg p.o. b.i.d. 7. DuoNeb q.i.d. and p.r.n. as before. 8. Levocarnitine as before. 9. Lopressor 100 mg p.o. b.i.d. 10.Synthroid 175 mcg p.o. daily. 11.Zaroxolyn 10 mg p.o. daily. 12.Zestril 20 mg p.o. b.i.d. 13.Aranesp 60 mg q.7 days. 14.Lantus 25 units subcutaneously at bedtime. 15.Protonix 40 mg b.i.d. 16.Tylenol p.r.n. 17.Hold Plavix at this time; to be evaluated in the outpatient setting. 18.Follow-up CBC and BMP with primary physician. MMODL / IJN: [id number] /
== END 2020-07-06 15:05 | disposition home or self-care (01) | DRG 377 ==
LOC: EC 10:32 → 3SCARD 12:51
PROVIDERS: ADMIT Hospitalist; ATTEND Hospitalist
PROC: 30233N1 Transfusion of Nonautologous Red Blood Cells into Peripheral Vein, Percutaneous Approach (ICD-10-PCS; 2020-07-03)
PROC: 0DB78ZX Excision of Stomach, Pylorus, Via Natural or Artificial Opening Endoscopic, Diagnostic (ICD-10-PCS; 2020-07-05)
PROC: 0DB98ZX Excision of Duodenum, Via Natural or Artificial Opening Endoscopic, Diagnostic (ICD-10-PCS; principal; 2020-07-05 08:00)
DX: K92.2 Gastrointestinal hemorrhage, unspecified (principal); N18.6 End stage renal disease; I21.A1 Myocardial infarction type 2; I12.0 Hypertensive chronic kidney disease with stage 5 chronic kidney disease or end stage renal disease; D62 Acute posthemorrhagic anemia; Z99.2 Dependence on renal dialysis; Z79.02 Long term (current) use of antithrombotics/antiplatelets; Z79.4 Long term (current) use of insulin; Z79.899 Other long term (current) drug therapy; E11.22 Type 2 diabetes mellitus with diabetic chronic kidney disease; E78.5 Hyperlipidemia, unspecified; I25.10 Atherosclerotic heart disease of native coronary artery without angina pectoris; E07.9 Disorder of thyroid, unspecified; M19.90 Unspecified osteoarthritis, unspecified site; N28.9 Disorder of kidney and ureter, unspecified; Z95.1 Presence of aortocoronary bypass graft; Z95.2 Presence of prosthetic heart valve; E89.0 Postprocedural hypothyroidism; Z96.1 Presence of intraocular lens; Z79.890 Hormone replacement therapy; Z87.01 Personal history of pneumonia (recurrent); Z82.49 Family history of ischemic heart disease and other diseases of the circulatory system; Z95.5 Presence of coronary angioplasty implant and graft; K29.80 Duodenitis without bleeding; K29.70 Gastritis, unspecified, without bleeding; K44.9 Diaphragmatic hernia without obstruction or gangrene; D53.9 Nutritional anemia, unspecified; D63.1 Anemia in chronic kidney disease; Z82.3 Family history of stroke; E66.9 Obesity, unspecified; Z68.30 Body mass index [BMI] 30.0-30.9, adult; Z87.440 Personal history of urinary (tract) infections; I35.0 Nonrheumatic aortic (valve) stenosis; Z20.822 Contact with and (suspected) exposure to COVID-19
CPT/HCPCS: 36415; 43239; 71046; 80048; 80053; 82272; 82607; 82728; 82746; 83036; 83540; 83550; 83605; 83880; 84484; 85025; 85045; 85610; 85730; 86850; 86900; 86901; 86920; 87635; 88305; 90935; 93005; 94640; 96374; 99291

== ENCOUNTER 2020-11-17 12:41 | Inpatient (IN) | payer MEDICARE ==
[2020-11-17] MEDS ORDERED: SODIUM CHLORIDE 0.9% 500 ML 500 ML IV STA (13:00)
--- NOTE | 2020-11-17 13:09 | ED ---
General Adult HPI - General Chief complaint: Recheck/Abnormal Lab/Rx Stated complaint: poss GI Bleed Time Seen by Provider: 11/17/20 12:45 Source: patient, EMS, RN notes reviewed, old records reviewed Mode of arrival: EMS Limitations: no limitations - History of Present Illness Initial comments: This is an 80-year-old female who presents emergency department with past medical history significant for diabetes and kidney failure. Patient is on dialysis. Patient has been struggling with anemia. Patient was at [facility] receiving 5 units of blood but she left AMA because she stated the nurse's were nice to her. Patient states she had a redraw today when she was at dialysis and she was told she was at a level of hemoglobin 5. Patient states she's a little short of breath when she gets up and moves around she denies any lightheadedness or dizziness. Patient denies any chest pain palpitations. Patient denies any abdominal pain. Patient states they did check her stool and she is bleeding internally. - Related Data Home Medications Medication Instructions Recorded Confirmed Metoprolol Tartrate [Lopressor] 100 mg PO BID 06/09/20 07/03/20 metOLazone [Zaroxolyn] 10 mg PO DAILY 06/09/20 07/03/20 Torsemide [Demadex] 20 mg PO BID 06/10/20 07/03/20 calcitrioL [Calcitriol] 0.5 mcg PO DAILY 06/10/20 07/03/20 Ipratropium-Albuterol Nebulize 3 ml INHALATION RT-TID 07/03/20 07/03/20 [Duoneb 0.5 mg-3 mg/3 ml Soln] Levothyroxine Sodium [Synthroid] 175 mcg PO DAILY 07/03/20 07/03/20 Lisinopril [Zestril] 20 mg PO BID 07/03/20 07/03/20 levOCARNitine [Levocarnitine] 330 mg PO DAILY 07/03/20 07/03/20 Previous Rx's Medication Instructions Recorded Acetaminophen Tab [Tylenol] 650 mg PO Q6HR PRN tab 06/12/20 Darbepoetin Herman [Aranesp] 60 mcg SQ Q7D syringe 07/06/20 Insulin Glargine [Lantus Vial] 25 unit SQ HS #0 04/26/21 Pantoprazole [Protonix] 40 mg PO AC-[id number] 30 Days #30 07/06/20 tablet.dr Allergies Allergy/AdvReac Type Severity Reaction Status Date / Time ciprofloxacin [From Cipro] Allergy Unknown Verified 11/17/20 12:45 levofloxacin [From Levaquin] Allergy Swelling Verified 11/17/20 12:44 Penicillins Allergy Swelling Verified 11/17/20 12:44 Sulfa (Sulfonamide Allergy Swelling Verified 11/17/20 12:44 Antibiotics) Review of Systems ROS Statement: Those systems with pertinent positive or pertinent negative responses have been documented in the HPI. ROS Other: All systems not noted in ROS Statement are negative. Past Medical History Past Medical History: Coronary Artery Disease (CAD), Diabetes Mellitus, GI Bleed, Hyperlipidemia, Hypertension, Osteoarthritis (OA), Pneumonia, Renal Disease, Thyroid Disorder Additional Past Medical History / Comment(s): IDDM type II, neuropathy bilateral feet, ESRD/peritoneal dialysis x 3 years, UTI in past, pneumonia as a child, arthritis in bilateral hands, gastric ulcer, lower GI bleed with transfusions, past would "miss a heartbeat once in awhile", hypothyroid. History of Any Multi-Drug Resistant Organisms: None Reported Past Surgical History: Cardiac Valve Replacement, Coronary Bypass/CABG, Heart Catheterization, Heart Catheterization With Stent Additional Past Surgical History / Comment(s): 2018 CABG 3 vessels with valve replacement at [facility], peritoneal dialysis catheter, EGDs, colonoscopies, thyroidectomy d/t precancerous, bilateral cataract removal/lens implants. Additional Past Anesthesia/Blood Transfusion Reaction / Comment(s): Sometimes slow to wake. Pt has received blood in past without reaction. Date of Last Stent Placement:: 2015 Past Psychological History: No Psychological Hx Reported Smoking Status: Never smoker Past Alcohol Use History: None Reported Past Drug Use History: None Reported - Past Family History Father Family Medical History: Myocardial Infarction ([place]) Additional Family Medical History / Comment(s): Father of a [place] at the age of 65yrs. Mother Family Medical History: CVA/TIA Additional Family Medical History / Comment(s): Mother of a CVA at the age of 78yrs. General Exam - General Exam Comments Initial Comments: GENERAL: Patient is well-developed and well-nourished. Patient is nontoxic and well-hy drated and is in mild distress. ENT: Neck is soft and supple. No significant lymphadenopathy is noted. Oropharynx is clear. Moist mucous membranes. Neck has full range of motion without eliciting any pain. EYES: The sclera were anicteric and conjunctiva were pink and moist. Extraocular movements were intact and pupils were equal round and reactive to light. Eyelids were unremarkable. PULMONARY: Unlabored respirations. Good breath sounds bilaterally. No audible rales rhonchi or wheezing was noted. CARDIOVASCULAR: There is a regular rate and rhythm without any murmurs gallops or rubs. ABDOMEN: Soft and nontender with normal bowel sounds. No palpable organomegaly was noted. There is no palpable pulsatile mass. SKIN: Patient is very pale NEUROLOGIC: Patient is alert and oriented x3. Cranial nerves II through XII are grossly intact. Motor and sensory are also intact. Normal speech, volume and content. Symmetrical smile. MUSCULOSKELETAL: Normal extremities with adequate strength and full range of motion. 1+ edema bilaterally LYMPHATICS: No significant lymphadenopathy is noted PSYCHIATRIC: Normal psychiatric evaluation. Limitations: no limitations Course Vital Signs 11/17/20 11/17/20 12:45 13:00 Temperature 98.5 F Pulse Rate 91 Respiratory 20 Rate Blood Pressure 140/58 O2 Sat by Pulse 84 L 93 L Oximetry Medical Decision Making - Medical Decision Making EKG shows sinus rhythm at 95 bpm with an occasional PVC [place] interval is 226 QRS is 104 QT interval 382 QTC is 480. Patient's EKG does show some ST segment depression in leads 2 and aVF as well as T-wave inversion in lead 3. These changes were seen on previous EKG. Patient states she was told at [facility] and she had a GI bleed. Patient has not noticed any bright red blood. Patient's Hemoccult was 5.6 and ordered 2 units packed red blood cells. Patient states that her last visit the hospital this past week at [facility] she needed 5 units and then she left AMA. I spoke with Dr. Ingram he agreed to admit the patient admitted the patient I consult to Dr. Rodriguez. - Lab Data Result diagrams: 11/17/20 13:10 11/17/20 13:10 Lab Results 11/17/20 11/17/20 11/17/20 Range/Units 13:10 13:10 13:10 WBC 16.3 H (3.8-10.6) k/uL RBC 1.84 L (3.80-5.40) m/uL Hgb 5.6 L* (11.4-16.0) gm/dL Hct 16.9 L* (34.0-46.0) % MCV 92.1 (80.0-100.0) fL MCH 30.4 (25.0-35.0) pg MCHC 33.1 (31.0-37.0) g/dL RDW 16.0 H (11.5-15.5) % Plt Count 492 H (150-450) k/uL MPV 8.5 Neutrophils % 84 % Lymphocytes % 8 % Monocytes % 5 % Eosinophils % 1 % Basophils % 0 % Neutrophils # 13.7 H (1.3-7.7) k/uL Lymphocytes # 1.3 (1.0-4.8) k/uL Monocytes # 0.8 (0-1.0) k/uL Eosinophils # 0.2 (0-0.7) k/uL Basophils # 0.1 (0-0.2) k/uL Hypochromasia Moderate Poikilocytosis Slight Anisocytosis Slight PT 10.3 (9.0-12.0) sec INR 1.0 (<1.2) APTT 23.7 (22.0-30.0) sec Sodium 135 L (137-145) mmol/L Potassium 3.7 (3.5-5.1) mmol/L Chloride 99 (98-107) mmol/L Carbon Dioxide 29 (22-30) mmol/L Anion Gap 7 mmol/L BUN 86 H (7-17) mg/dL Creatinine 5.86 H (0.52-1.04) mg/dL Est GFR (CKD-EPI)AfAm 7 (>60 ml/min/1.73 sqM) Est GFR (CKD-EPI)NonAf 6 (>60 ml/min/1.73 sqM) Glucose 89 (74-99) mg/dL Calcium 8.3 L (8.4-10.2) mg/dL Magnesium 1.7 (1.6-2.3) mg/dL Total Bilirubin <0.1 L (0.2-1.3) mg/dL AST 19 (14-36) U/L ALT 11 (4-34) U/L Alkaline Phosphatase 77 (38-126) U/L Troponin I (0.000-0.034) ng/mL Total Protein 5.0 L (6.3-8.2) g/dL Albumin 2.2 L (3.5-5.0) g/dL 11/17/20 Range/Units 13:10 WBC (3.8-10.6) k/uL RBC (3.80-5.40) m/uL Hgb (11.4-16.0) gm/dL Hct (34.0-46.0) % MCV (80.0-100.0) fL MCH (25.0-35.0) pg MCHC (31.0-37.0) g/dL RDW (11.5-15.5) % Plt Count (150-450) k/uL MPV Neutrophils % % Lymphocytes % % Monocytes % % Eosinophils % % Basophils % % Neutrophils # (1.3-7.7) k/uL Lymphocytes # (1.0-4.8) k/uL Monocytes # (0-1.0) k/uL Eosinophils # (0-0.7) k/uL Basophils # (0-0.2) k/uL Hypochromasia Poikilocytosis Anisocytosis PT (9.0-12.0) sec INR (<1.2) APTT (22.0-30.0) sec Sodium (137-145) mmol/L Potassium (3.5-5.1) mmol/L Chloride (98-107) mmol/L Carbon Dioxide (22-30) mmol/L Anion Gap mmol/L BUN (7-17) mg/dL Creatinine (0.52-1.04) mg/dL Est GFR (CKD-EPI)AfAm (>60 ml/min/1.73 sqM) Est GFR (CKD-EPI)NonAf (>60 ml/min/1.73 sqM) Glucose (74-99) mg/dL Calcium (8.4-10.2) mg/dL Magnesium (1.6-2.3) mg/dL Total Bilirubin (0.2-1.3) mg/dL AST (14-36) U/L ALT (4-34) U/L Alkaline Phosphatase (38-126) U/L Troponin I 0.109 H* (0.000-0.034) ng/mL Total Protein (6.3-8.2) g/dL Albumin (3.5-5.0) g/dL Critical Care Time Critical Care Time: Yes Total Critical Care Time: 35 Disposition Clinical Impression: GI bleed, Anemia Disposition: ADMITTED IP TO THIS [facility] Referrals: None,Stated [REFERRING] - 1-2 days Time of Disposition: 14:30
[2020-11-17 13:41] LABS: Partial Thromboplastin Time 23.7 sec (22.0-30.0); Prothrombin Time 10.3 sec (9.0-12.0)
[2020-11-17 13:44] LABS: ALT 11 U/L (4-34); AST 19 U/L (14-36); African American GFR (CKD) 7 (>60 ml/min/1.73 sqM); Albumin 2.2 g/dL (3.5-5.0); Alkaline Phosphatase 77 U/L (38-126); Anion Gap 7 mmol/L; Blood Urea Nitrogen 86 mg/dL (7-17); Calcium 8.3 mg/dL (8.4-10.2); Carbon Dioxide 29 mmol/L (22-30); Chloride 99 mmol/L (98-107); Glucose 89 mg/dL (74-99); Magnesium 1.7 mg/dL (1.6-2.3); Non-African American GFR(CKD) 6 (>60 ml/min/1.73 sqM); Potassium 3.7 mmol/L (3.5-5.1); Sodium 135 mmol/L (137-145); Total Bilirubin <0.1 mg/dL (0.2-1.3)
[2020-11-17 13:59] LABS: Anisocytosis Slight; Basophils # (A) 0.1 k/uL (0-0.2); Basophils % (A) 0 %; Eosinophils # (A) 0.2 k/uL (0-0.7); Eosinophils % (A) 1 %; Hypochromasia Moderate; Lymphocytes # (A) 1.3 k/uL (1.0-4.8); Lymphocytes % (A) 8 %; MCH 30.4 pg (25.0-35.0); MCHC 33.1 g/dL (31.0-37.0); MCV 92.1 fL (80.0-100.0); Mean Platelet Volume 8.5; Monocytes # (A) 0.8 k/uL (0-1.0); Monocytes % (A) 5 %; Neutrophils # (A) 13.7 k/uL (1.3-7.7); Neutrophils % (A) 84 %; Platelet Count 492 k/uL (150-450); Poikilocytosis Slight; RBC 1.84 m/uL (3.80-5.40); WBC 16.3 k/uL (3.8-10.6)
[2020-11-17 14:03] LABS: HCT 16.9 % (34.0-46.0); HGB 5.6 gm/dL (11.4-16.0)
--- NOTE | 2020-11-17 14:25 | XR ---
EXAMINATION TYPE: XR chest 2V DATE OF EXAM: 11/17/2020 COMPARISON: 07/03/2020 INDICATION: Pain TECHNIQUE: Frontal and lateral views of the chest are obtained. FINDINGS: The heart size is highly prominent. The pulmonary vasculature is mildly prominent. No focal consolidation is evident. Small left pleural effusion is diminished. IMPRESSION: 1. Cardiomegaly with mild prominence of pulmonary vascular markings. Mild congestive heart failure or volume overload may be present. 2. Improving small left pleural effusion
[2020-11-17] MEDS ORDERED: SODIUM CHLORIDE 0.9% 1,000 ML IV ONE (14:30)
[2020-11-17 17:22] LABS: Glucose,Whole Blood 62 mg/dL (75-99)
[2020-11-17 17:22] LABS: Glucose,Whole Blood 73 mg/dL (75-99)
[2020-11-17] MEDS ORDERED: DEXTROSE 5% IN WATER 1,000 ML IV SCH (17:30)
[2020-11-17] MEDS: INSULIN DETEMIR (LEVEMIR) 100 UNIT/ML SYR SQ SCH (21:06)
[2020-11-17] MEDS: PANTOPRAZOLE 40 MG/10 ML VIAL IVP SCH ×2 (21:15→21:17)
[2020-11-17] MEDS: lisinopriL 20 MG TAB PO SCH ×2 (21:16→21:21)
[2020-11-17] MEDS: FUROSEMIDE 10 MG/ML 10 ML VIAL IV SCH (22:12)
--- NOTE | 2020-11-17 23:19 | P.HPIM ---
History of Present Illness H&P Date: 11/17/20 Chief Complaint: Low hemoglobin Patient is a 80-year-old female with a known history of coronary disease status post CABG and stent placement, aortic valve replacement, diabetes type 2 insulin-dependent, hypertension, hyperlipidemia, osteoarthritis, hypothyroidism, bilateral lower extremity peripheral neuropathy and ESRD on peritoneal dialysis for the past 3 years and history of gastric ulcer and lower GI bleeds with transfusions were sent to ER from dialysis clinic due to low hemoglobin level. Patient was found to be hemoglobin of 5.6 on admission. Patient states that she has been having dark stools and was admitted to [facility] last week. Patient states that she did have 5 units of blood transfusion. She she had endoscopy and was told no active bleeding. Patient also had elevated troponin level, patient had cardiac catheterization but no int ervention. Patient states that she was upset with all the procedures and left AMA. Otherwise patient denies any complaints of chest pain now. Mild shortness of breath and slightly increasing leg swelling. Denies any headache or dizziness or lightheadedness. No palpitations. No nausea vomiting abdominal pain or diarrhea. Patient is still having dark-colored stools. Laboratory showed WBC 16.3 hemoglobin 5.6 and platelets 492 Sodium 135 potassium 3.7 chloride 99, BUN 86 and creatinine 5.86 Calcium 8.3 magnesium 1.7 AST 19 ALT 11 and alk phos 77 Troponin 0 0.109 and albumin 2.2 Review of Systems Constitutional: Patient denies any fever or chills . No generalized weakness or weight loss. Abdomen: Patient denied nausea vomiting and diarrhea and abdominal pain. Cardiovascular: Patient denies any chest pain or short of breath no palpitations. Respiratory: patient denied any cough or sputum production. No shortness of breath Neurologic: Patient denied any numbness or tingling headache. Musculoskeletal: Patient denies any complaints of joint swelling or deformity. Skin: Negative Psychiatric: Negative Endocrine: No heat or cold intolerance. No recent weight gain. Genitourinary: No dysuria or hematuria. All other 14 point ROS negative except the above Past Medical History Past Medical History: Coronary Artery Disease (CAD), Diabetes Mellitus, GI Bleed, Hyperlipidemia, Hypertension, Osteoarthritis (OA), Pneumonia, Renal Disease, Thyroid Disorder Additional Past Medical History / Comment(s): IDDM type II, neuropathy bilateral feet, ESRD/peritoneal dialysis x 3 years, UTI in past, pneumonia as a child, arthritis in bilateral hands, gastric ulcer, lower GI bleed with transfusions, p ast would "miss a heartbeat once in awhile", hypothyroid. History of Any Multi-Drug Resistant Organisms: None Reported Past Surgical History: Cardiac Valve Replacement, Coronary Bypass/CABG, Heart Catheterization, Heart Catheterization With Stent Additional Past Surgical History / Comment(s): 2017 CABG 3 vessels with valve replacement at [facility], peritoneal dialysis catheter, EGDs, colonoscopies, thyroidectomy d/t precancerous, bilateral cataract removal/lens implants. Additional Past Anesthesia/Blood Transfusion Reaction / Comment(s): Sometimes slow to wake. Pt has received blood in past without reaction. Date of Last Stent Placement:: 2015 Past Psychological History: No Psychological Hx Reported Smoking Status: Never smoker Past Alcohol Use History: None Reported Past Drug Use History: None Reported - Past Family History Father Family Medical History: Myocardial Infarction ([place]) Additional Family Medical History / Comment(s): Father of a [place] at the age of 65yrs. Mother Family Medical History: CVA/TIA Additional Family Medical History / Comment(s): Mother of a CVA at the age of 78yrs. Medications and Allergies Home Medications Medication Instructions Recorded Confirmed Type Levothyroxine Sodium [Synthroid] 175 mcg PO DAILY 07/03/20 11/17/20 History Lisinopril [Zestril] 20 mg PO BID 07/03/20 11/17/20 History Folic Acid 1 mg PO DAILY 11/17/20 11/17/20 History Folic Acid-Vit B Complex-Vit C 1 cap PO DAILY 11/17/20 11/17/20 History [Nephrocaps] Insulin Glargine [Lantus Vial] 53 unit SQ HS 11/17/20 11/17/20 History Isosorbide Mononitrate ER [Imdur] 30 mg PO DAILY 11/17/20 11/17/20 History Pantoprazole [Protonix] 40 mg PO BID 11/17/20 11/17/20 History Allergies Allergy/AdvReac Type Severity Reaction Status Date / Time ciprofloxacin [From Cipro] Allergy Unknown Verified 11/17/20 14:45 levofloxacin [From Levaquin] Allergy Swelling Verified 11/17/20 14:45 Penicillins Allergy Swelling Verified 11/17/20 14:45 Sulfa (Sulfonamide Allergy Swelling Verified 11/17/20 14:45 Antibiotics) Physical Exam Vitals: Vital Signs Temp Pulse Resp BP Pulse Ox 11/17/20 15:28 92 20 111/51 94 L 11/17/20 13:00 93 L 11/17/20 12:45 98.5 F 91 20 140/58 84 L Intake and Output 11/17/20 11/17/20 11/17/20 06:59 14:59 22:59 Other: Weight 77.111 kg PHYSICAL EXAMINATION: Patient is lying in the bed comfortably, no acute distress, awake alert and oriented.. HEENT: Normocephalic. Neck is supple. Pupils reactive. Nostrils clear. Oral cavity is moist. Neck reveals no JVD, carotid bruits, or thyromegaly. CHEST EXAMINATION: Trachea is central. Symmetrical expansion.Basilar fine crackles. No wheezing. Lung blankenship clear to auscultation and percussion. CARDIAC: Normal S1, S2 with no gallops. No murmurs ABDOMEN: Soft. Bowel sounds normal. No organomegaly. No abdominal bruits. Extremities: rtrace b/l edema. No clubbing or cyanosis Neurologically awake, alert, oriented x3 with well-coordinated movements. No focal deficits noted Skin: No rash or skin lesions. Psychiatric: Coperative. Nonsuicidal Musculoskeletal: No joint swelling or deformity. Normal range of motion. Results CBC & Chem 7: 11/17/20 13:10 11/17/20 13:10 Labs: Abnormal Lab Results - Last 24 Hours (Table) 11/17/20 11/17/20 11/17/20 Range/Units 13:10 13:10 13:10 WBC 16.3 H (3.8-10.6) k/uL RBC 1.84 L (3.80-5.40) m/uL Hgb 5.6 L* (11.4-16.0) gm/dL Hct 16.9 L* (34.0-46.0) % RDW 16.0 H (11.5-15.5) % Plt Count 492 H (150-450) k/uL Neutrophils # 13.7 H (1.3-7.7) k/uL Sodium 135 L (137-145) mmol/L BUN 86 H (7-17) mg/dL Creatinine 5.86 H (0.52-1.04) mg/dL Calcium 8.3 L (8.4-10.2) mg/dL Total Bilirubin <0.1 L (0.2-1.3) mg/dL Troponin I 0.109 H* (0.000-0.034) ng/mL Total Protein 5.0 L (6.3-8.2) g/dL Albumin 2.2 L (3.5-5.0) g/dL Crossmatch 11/17/20 Range/Units 13:10 WBC (3.8-10.6) k/uL RBC (3.80-5.40) m/uL Hgb (11.4-16.0) gm/dL Hct (34.0-46.0) % RDW (11.5-15.5) % Plt Count (150-450) k/uL Neutrophils # (1.3-7.7) k/uL Sodium (137-145) mmol/L BUN (7-17) mg/dL Creatinine (0.52-1.04) mg/dL Calcium (8.4-10.2) mg/dL Total Bilirubin (0.2-1.3) mg/dL Troponin I (0.000-0.034) ng/mL Total Protein (6.3-8.2) g/dL Albumin (3.5-5.0) g/dL Crossmatch See Detail Thrombosis Risk Factor Assmnt - DVT/VTE Prophylaxis DVT/VTE Prophylaxis: Mechanical Prophylaxis ordered Assessment and Plan Assessment: Acute blood loss anemia secondary to GI bleed Symptomatic anemia ESRD on peritoneal dialysis Mild elevated troponin level possible demand ischemia Hypoalbuminemia Mild to moderate protein calorie malnutrition Diabetes type 2 insulin-dependent Coronary disease history of CABG History of stent placement Hypertension Hyperlipidemia Osteoarthritis Hypothyroidism Bilateral peripheral neuropathy diabetic History of gastric ulcer and lower GI bleed and history of transfusions DVT prophylaxis with SCDs Plan: Patient will be continued on gentle IV hydration and Protonix 40 mg IV twice daily. Monitor H&H closely. Patient will be continued on peritoneal dialysis. Continue with home blood pressure medications and levothyroxine other medications. Replace electrolytes. Continue to follow closely. GI was consulted for further evaluation.. Time with Patient: Greater than 30
[2020-11-17] MEDS: MAGNESIUM SULFATE-D5W PMX 1 GM in DEXTROSE/WATER 1 100ML.BAG IVPB SCH (23:49)
[2020-11-17 23:54] LABS: Glucose,Whole Blood 116 mg/dL (75-99)
[2020-11-18] MEDS: DIALYSIS (PERIT 4.25%) 2500 ML 106.25 G/2,500 ML BAG INTRAPERIT SCH ×4 (00:36→18:27)
[2020-11-18] MEDS: MAGNESIUM SULFATE-D5W PMX 1 GM in DEXTROSE/WATER 1 100ML.BAG IVPB SCH (00:59)
[2020-11-18 05:38] LABS: Anisocytosis Slight; Basophils # (A) 0.1 k/uL (0-0.2); Basophils % (A) 0 %; Eosinophils # (A) 0.6 k/uL (0-0.7); Eosinophils % (A) 4 %; Hypochromasia Slight; Lymphocytes # (A) 1.1 k/uL (1.0-4.8); Lymphocytes % (A) 8 %; MCH 30.5 pg (25.0-35.0); MCHC 33.1 g/dL (31.0-37.0); MCV 92.1 fL (80.0-100.0); Mean Platelet Volume 8.6; Monocytes # (A) 0.8 k/uL (0-1.0); Monocytes % (A) 5 %; Neutrophils # (A) 11.3 k/uL (1.3-7.7); Neutrophils % (A) 81 %; Platelet Count 422 k/uL (150-450); Poikilocytosis Slight; RBC 2.28 m/uL (3.80-5.40); RDW 16.1 % (11.5-15.5); WBC 13.9 k/uL (3.8-10.6)
[2020-11-18 05:50] LABS: HGB 6.9 gm/dL (11.4-16.0)
[2020-11-18 05:51] LABS: Calcium 8.2 mg/dL (8.4-10.2); Potassium 3.5 mmol/L (3.5-5.1)
[2020-11-18] MEDS: LEVOTHYROXINE 88 MCG TAB PO SCH (05:58)
[2020-11-18 06:17] LABS: Glucose,Whole Blood 274 mg/dL (75-99)
[2020-11-18] MEDS: lisinopriL 20 MG TAB PO SCH ×2 (10:06→21:25)
[2020-11-18] MEDS: FOLIC ACID-VIT B COMPLEX-VIT C 1 CAP PO SCH (10:06)
[2020-11-18] MEDS: FOLIC ACID 1 MG TAB PO SCH (10:06)
[2020-11-18] MEDS: PANTOPRAZOLE 40 MG/10 ML VIAL IVP SCH ×2 (10:06→21:25)
[2020-11-18] MEDS: ISOSORBIDE MONONITRATE ER 30 MG TAB.ER.24H PO SCH (10:06)
[2020-11-18 11:01] LABS: HCT 20.9 % (34.0-46.0); HGB 7.1 gm/dL (11.4-16.0); Hypochromasia Slight; MCH 30.9 pg (25.0-35.0); MCHC 33.8 g/dL (31.0-37.0); MCV 91.5 fL (80.0-100.0); Mean Platelet Volume 8.8; Platelet Count 365 k/uL (150-450); Poikilocytosis Slight; RBC 2.28 m/uL (3.80-5.40); RDW 15.5 % (11.5-15.5); WBC 13.7 k/uL (3.8-10.6)
[2020-11-18 11:50] LABS: Glucose,Whole Blood 218 mg/dL (75-99)
[2020-11-18] MEDS ORDERED: POTASSIUM CHLORIDE ER 20 MEQ TAB.ER PO STA (11:57)
[2020-11-18] MEDS ORDERED: DESMOPRESSIN ACETATE 20 MCG in SODIUM CHLORIDE 0.9% 50 ML IVPB ONE (12:30)
[2020-11-18] MEDS: FUROSEMIDE 10 MG/ML 10 ML VIAL IV SCH ×2 (12:53→21:26)
[2020-11-18] MEDS: INSULIN ASPART (NovoLOG) 100 UNIT/ML VIAL SQ SCH ×3 (12:53→21:26)
[2020-11-18] MEDS ORDERED: MAGNESIUM CITRATE 296 ML BOTTLE PO ONE (12:55)
--- NOTE | 2020-11-18 13:38 | P.CONS ---
History of Present Illness - Reason for Consult Consult date: 11/18/20 Anemia, GI bleed Requesting physician: Ene Disla - Chief Complaint abnormal labs, anemia - History of Present Illness This is a 80-year-old female with multiple medical comorbidities including diabetes mellitus, coronary artery disease, hyperlipidemia, hypertension, hypothyroidism, degenerative joint disease, end-stage renal disease on hemodialysis and history of anemia who presented to the hospital due to abnormal labs ay hemodialysis. Apparently the patient was recently admitted to [facility] from last Monday until Monday or Monday, she left AGAINST MEDICAL ADVICE. Yesterday she went to hemodialysis where they jordi blood and she had a hemoglobin of 5 and was told to go to the emergency department. She presented to the emergency department yesterday and was noted to have a hemoglobin of 5.6. She was transfused 2 units of PRBC and today's repeat hemoglobin is 7.1. She has had a history of chronic anemia and has had multiple workups including upper and lower endoscopies and a small bowel capsule done and [facility]. She also states she just underwent an EGD this past week. She reportedly is having bright red blood in her stool for the last 1-2 days duration. Now her stool is dark, tarry. States she has been having significant constipation over the last 2 weeks, otherwise that she has normal bowel pattern. Today she states she is not feeling well, she is very tired and weak. She denies any abdominal pain, states she may have some mild cramping in her lower abdomen. Denies any nausea or vomiting. She's been afebrile. In the past she's had macrocytic anemia, no evidence of iron deficiency anemia. Iron studies are currently pending. 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 She does have a history of CABG and multiple stents. She was previously on Plavix, that was di scontinued when she was hospitalized at [facility]. Review of Systems REVIEW OF SYSTEMS: CARDIOPULMONARY: No chest pain or shortness of breath. Gastrointestinal: No abdominal pain. No nausea or vomiting. No hematemesis, coffee-ground emesis. Complains of constipation the last 2 weeks. Bright red blood in stool, today now having black tarry/maroon colored stool. GENITOURINARY: No dysuria or hematuria. MUSCULOSKELETAL: Reports normal range of motion., Joint pain. SKIN: No rashes. No jaundice. ENDOCRINE: No chills, fevers. No excessive weight gain or loss. No polydipsia or polyuria. PSYCHIATRIC: Unremarkable. NEUROLOGY: No change in mental status. Denies dizziness, headache. ENT: Vision unremarkable. CONSTITUTIONAL: No recent weight loss. No fever, chills, night sweats. Feeling weak and fatigued. Past Medical History Past Medical History: Coronary Artery Disease (CAD), Diabetes Mellitus, GI Bleed, Hyperlipidemia, Hypertension, Osteoarthritis (OA), Pneumonia, Renal Disea se, Thyroid Disorder Additional Past Medical History / Comment(s): IDDM type II, neuropathy bilateral feet, ESRD/peritoneal dialysis x 3 years, UTI in past, pneumonia as a child, arthritis in bilateral hands, gastric ulcer, lower GI bleed with transfusions, past would "miss a heartbeat once in awhile", hypothyroid. History of Any Multi-Drug Resistant Organisms: None Reported Past Surgical History: Cardiac Valve Replacement, Coronary Bypass/CABG, Heart Catheterization, Heart Catheterization With Stent Additional Past Surgical History / Comment(s): 2018 CABG 3 vessels with valve replacement at [facility], peritoneal dialysis catheter, EGDs, colonoscopies, thyroidectomy d/t precancerous, bilateral cataract removal/lens implants. Additional Past Anesthesia/Blood Transfusion Reaction / Comm: Sometimes slow to wake. Pt has received blood in past without reaction. Date of Last Stent Placement:: 2015 Past Psychological History: No Psychological Hx Reported Smoking Status: Never smoker Past Alcohol Use History: None Reported Past Drug Use History: None Reported - Past Family History Father Family Medical History: Myocardial Infarction (MA) Additional Family Medical History / Comment(s): Father of a MA at the age of 65yrs. Mother Family Medical History: CVA/TIA Additional Family Medical History / Comment(s): Mother of a CVA at the age of 78yrs. Medications and Allergies Home Medications Medication Instructions Recorded Confirmed Type Levothyroxine Sodium [Synthroid] 175 mcg PO DAILY 07/03/20 11/17/20 History Lisinopril [Zestril] 20 mg PO BID 07/03/20 11/17/20 History Folic Acid 1 mg PO DAILY 11/17/20 11/17/20 History Folic Acid-Vit B Complex-Vit C 1 cap PO DAILY 11/17/20 11/17/20 History [Nephrocaps] Insulin Glargine [Lantus Vial] 53 unit SQ HS 11/17/20 11/17/20 History Isosorbide Mononitrate ER [Imdur] 30 mg PO DAILY 11/17/20 11/17/20 History Pantoprazole [Protonix] 40 mg PO BID 11/17/20 11/17/20 History Allergies Allergy/AdvReac Type Severity Reaction Status Date / Time ciprofloxacin [From Cipro] Allergy Unknown Verified 11/17/20 14:45 levofloxacin [From Levaquin] Allergy Swelling Verified 11/17/20 14:45 Penicillins Allergy Swelling Verified 11/17/20 14:45 Sulfa (Sulfonamide Allergy Swelling Verified 11/17/20 14:45 Antibiotics) Physical Exam Vitals: Vital Signs Temp Pulse Pulse Resp BP BP Pulse Ox 11/18/20 09:40 97.6 F 93 16 151/65 98 11/18/20 06:00 98.2 F 80 18 130/69 100 11/18/20 04:00 98.5 F 88 18 100/49 95 11/18/20 00:39 98.4 F 82 18 119/63 94 L 11/18/20 00:11 98.4 F 18 L 18 117/60 97 11/17/20 21:14 98.5 F 91 18 133/65 100 11/17/20 20:44 98.0 F 89 18 119/64 11/17/20 20:34 98.2 F 93 18 130/66 11/17/20 19:00 98.4 F 89 18 123/61 96 11/17/20 17:20 98.3 F 80 18 91/54 99 11/17/20 16:50 98.1 F 85 18 104/50 99 11/17/20 16:40 98.1 F 90 18 114/51 98 11/17/20 16:00 90 11/17/20 15:28 92 20 111/51 94 L 11/17/20 13:00 93 L 11/17/20 12:45 98.5 F 91 20 140/58 84 L Intake and Output 09/07/21 09/08/21 09/08/21 22:59 06:59 14:59 Intake Total 310 310 Output Total 30 500 Balance 310 280 -500 Intake: Oral 0 Blood Product 310 310 Rc As-1 Unit 0 310 [id number] Rc As-1 Unit 310 [id number] Output: Urine 30 Urine/Stool Mix 500 Other: Voiding Method Toilet Bedside Commode # Voids 1 # Bowel Movements 1 Weight 77.111 kg 81.4 kg General appearance: The patient is alert, oriented, appears in no acute distress. HET: Head is normocephalic and atraumatic. Conjunctiva pink. Sclera anicteric. Neck: Supple without lymphadenopathy. Trachea midline. Heart: S1 S2. Regular rate and rhythm. Lungs: Clear to auscultation. Abdomen: Soft, mild lower abdominal tenderness, nondistended with bowel sounds. No guarding or rigidity. Skin: No rashes. No jaundice. Extremities: Normal skin color and turgor. No pedal edema. Neurological: No focal deficits. Alert and oriented 3.. Results CBC & Chem 7: 11/18/20 10:10 11/18/20 05:02 Labs: Abnormal Lab Results - Last 24 Hours (Table) 11/17/20 11/17/20 11/17/20 Range/Units 13:10 13:10 13:10 WBC 16.3 H (3.8-10.6) k/uL RBC 1.84 L (3.80-5.40) m/uL Hgb 5.6 L* (11.4-16.0) gm/dL Hct 16.9 L* (34.0-46.0) % RDW 16.0 H (11.5-15.5) % Plt Count 492 H (150-450) k/uL Neutrophils # 13.7 H (1.3-7.7) k/uL Sodium 135 L (137-145) mmol/L Chloride (98-107) mmol/L BUN 86 H (7-17) mg/dL Creatinine 5.86 H (0.52-1.04) mg/dL Glucose (74-99) mg/dL POC Glucose (mg/dL) (75-99) mg/dL Calcium 8.3 L (8.4-10.2) mg/dL Total Bilirubin <0.1 L (0.2-1.3) mg/dL Troponin I 0.109 H* (0.000-0.034) ng/mL Total Protein 5.0 L (6.3-8.2) g/dL Albumin 2.2 L (3.5-5.0) g/dL Crossmatch 11/17/20 11/17/20 11/17/20 Range/Units 13:10 16:54 17:11 WBC (3.8-10.6) k/uL RBC (3.80-5.40) m/uL Hgb (11.4-16.0) gm/dL Hct (34.0-46.0) % RDW (11.5-15.5) % Plt Count (150-450) k/uL Neutrophils # (1.3-7.7) k/uL Sodium (137-145) mmol/L Chloride (98-107) mmol/L BUN (7-17) mg/dL Creatinine (0.52-1.04) mg/dL Glucose (74-99) mg/dL POC Glucose (mg/dL) 62 L 73 L (75-99) mg/dL Calcium (8.4-10.2) mg/dL Total Bilirubin (0.2-1.3) mg/dL Troponin I (0.000-0.034) ng/mL Total Protein (6.3-8.2) g/dL Albumin (3.5-5.0) g/dL Crossmatch See Detail 11/17/20 11/18/20 11/18/20 Range/Units 23:52 05:02 05:02 WBC 13.9 H (3.8-10.6) k/uL RBC 2.28 L (3.80-5.40) m/uL Hgb 6.9 L* (11.4-16.0) gm/dL Hct 21.0 L (34.0-46.0) % RDW 16.1 H (11.5-15.5) % Plt Count (150-450) k/uL Neutrophils # 11.3 H (1.3-7.7) k/uL Sodium 133 L (137-145) mmol/L Chloride 97 L (98-107) mmol/L BUN 81 H (7-17) mg/dL Creatinine 5.45 H (0.52-1.04) mg/dL Glucose 250 H (74-99) mg/dL POC Glucose (mg/dL) 116 H (75-99) mg/dL Calcium 8.2 L (8.4-10.2) mg/dL Total Bilirubin (0.2-1.3) mg/dL Troponin I (0.000-0.034) ng/mL Total Protein (6.3-8.2) g/dL Albumin (3.5-5.0) g/dL Crossmatch 11/18/20 11/18/20 11/18/20 Range/Units 06:08 10:10 11:38 WBC 13.7 H (3.8-10.6) k/uL RBC 2.28 L (3.80-5.40) m/uL Hgb 7.1 L (11.4-16.0) gm/dL Hct 20.9 L (34.0-46.0) % RDW (11.5-15.5) % Plt Count (150-450) k/uL Neutrophils # (1.3-7.7) k/uL Sodium (137-145) mmol/L Chloride (98-107) mmol/L BUN (7-17) mg/dL Creatinine (0.52-1.04) mg/dL Glucose (74-99) mg/dL POC Glucose (mg/dL) 274 H 218 H (75-99) mg/dL Calcium (8.4-10.2) mg/dL Total Bilirubin (0.2-1.3) mg/dL Troponin I (0.000-0.034) ng/mL Total Protein (6.3-8.2) g/dL Albumin (3.5-5.0) g/dL Crossmatch Assessment and Plan (1) GI bleed Narrative/Plan: A 1-year-old female with multiple comorbidities including chronic anemia, end- stage renal disease on hemodialysis, diabetes mellitus, and coronary artery disease status post CABG and 3 stents. Patient was previously on Plavix, this was discontinued recently after she was admitted to [facility] on Monday for abnormal outpatient labs with anemia. The patient was recently [facility] for 5 days, she left AMA. She states she underwent an EGD while there and received 4 units of blood. Apparently Monday she was at hemodialysis and had blood drawn and was called yesterday and told that she had a low hemoglobin of 5. Being evaluated in the emergency department she had a hemoglobin of 5.6, she is status post 2 units of PRBC transfusion. Today's hemoglobin 7.1. Patient states that she's been having bright red blood mixed in her stool for the last 2 days duration. Today she was having black tarry stool with some maroon colored. States overall she is feeling fatigued and weak. Denies any abdominal pain. She has had multiple endoscopies in the last 2-3 years for workup for anemia. Last EGD done by Dr. Pugh in June of this year, which showed mild duodenitis, mild gastritis, small hiatal hernia, with no evidence of GI bleed or old blood. States her last colonoscopy was 2-3 years ago. Current Visit: Yes Status: Acute Code(s): K92.2 - GASTROINTESTINAL HEMORRHAGE, UNSPECIFIED SNOMED Code(s): 76145769 (2) Normochromic normocytic anemia Current Visit: Yes Status: Acute Code(s): D64.9 - ANEMIA, UNSPECIFIED SNOMED Code(s): 59886774 Plan: 1. Keep patient nothing by mouth, may start clear liquid diet two hours after capsule endoscopy started 2. Give magnesium citrate statin 3. Plan for small bowel video capsule endoscopy this afternoon 4. Daily CBC, transfuse for hemoglobin less than 7 5. Iron studies ordered 6. EGD report requested from Peter Oden Thank you for this consultation, we will continue to follow. Dr. Jose Luque I agree with the dictator's note, documented as a scribe by Gale Walker.
[2020-11-18 13:53] LABS: % Iron Saturation 53.33 (12.00-45.00)
[2020-11-18] MEDS ORDERED: DARBEPOETIN ALFA 60 MCG/0.3 ML SYRINGE SQ SCH (14:00)
--- NOTE | 2020-11-18 14:06 | CONS ---
CONSULTATION REASON FOR CONSULT: End-stage renal disease. HISTORY OF PRESENT ILLNESS: The patient is an 80-year-old female with end-stage renal disease, maintained on peritoneal dialysis. The patient was admitted to the hospital with complaints of weakness and having had black tarry stools. She was noted to have a hemoglobin of 5.6 g/dL. The patient has had issues with ongoing GI bleed. I believe she has had GI workup and endoscopy at [facility], but this was not recently performed. The patient denied any nausea or vomiting. She denied abdominal pain or fever. She said her bleeding has not been as bad as it had been previously. A cardiac catheterization was done at [facility] for elevated troponin, but the patient did not have any intervention done at that time. She left from there AMA. Last night the patient was quite short of breath and fluid-overloaded. She is currently maintained on 4.25% solution q.6 hours. She also has fair urine output and received IV Lasix this morning. Respiratory status is better. PAST MEDICAL HISTORY: Coronary artery disease, type 2 diabetes, GI bleed, hyperlipidemia, hypertension, osteoarthritis, end-stage renal disease, hypothyroidism, neuropathy, previous history of GI bleed, gastric ulcers. PAST SURGICAL HISTORY: Coronary artery bypass surgery, heart valve replacement, details not known, coronary stent, PD catheter placement, EGDs, colonoscopies, thyroidectomy, cataract surgeries. SOCIAL HISTORY: Negative for smoking, drug abuse or alcohol abuse. MEDICATIONS: Medications prior to admission included Synthroid, Zestril, folic acid, insulin, Imdur, Protonix. ALLERGIES: ALLERGIES include CIPRO, LEVAQUIN, PENICILLIN, SULFA. All of them cause swelling. REVIEW OF SYSTEMS: As per HPI. Other systems negative. PHYSICAL EXAMINATION: Patient is comfortable, awake. She is mildly short of breath, not in any acute distress. Blood pressure was 131/58, heart rate 92 per minute. She is afebrile. EXAMINATION OF THE HEART: S1 and S2. EXAMINATION OF LUNGS: Bilateral breath sounds are heard. Decreased breath sounds at the bases. Basal crackles heard. ABDOMEN: Soft, nontender. LOWER EXTREMITIES: Examination of lower extremities shows 1+ edema bilaterally. RIVER PILOT EXAM: Grossly intact. LABS: Labs show sodium 133, potassium 3.5, chloride 97, BUN 81, creatinine 5.4, hemoglobin 6.9. Repeat hemoglobin 7.1 g/dL. ASSESSMENT: 1. End-stage renal disease, on peritoneal dialysis, currently maintained on 4.25% solution exchanges for volume overload. 2. Volume overload at scheduled dose of IV Lasix, increased to q.12 hours. 3. Gastrointestinal bleed. Consult GI. The patient has had previous endoscopies, but she did not have any done recently. 4. History of elevated troponin during her last admission at [facility], for which a cardiac catheterization was done, but patient left AMA from there. 5. Hypertension. 6. Hypokalemia. We will replace. PLAN: Continue off of IV fluids. Replace potassium. Continue 4.25% solution exchanges. Increase Lasix to q.12 hours. Await GI evaluation. I will give a dose of DDAVP. The patient will need another EGD/colonoscopy. Please add Aranesp for a component of anemia of chronic disease. Thank you for this consultation. Will continue to follow the patient with you during her hospitalization. MMODL / IJN: [id number] /
[2020-11-18 16:40] LABS: Glucose,Whole Blood 362 mg/dL (75-99)
[2020-11-18 20:08] LABS: Glucose,Whole Blood 284 mg/dL (75-99)
[2020-11-18] MEDS: INSULIN DETEMIR (LEVEMIR) 100 UNIT/ML SYR SQ SCH (21:25)
--- NOTE | 2020-11-18 23:01 | P.PN ---
Subjective Progress Note Date: 11/18/20 Principal diagnosis: Acute blood loss anemia secondary to GI bleed Symptomatic anemia Patient is a 80-year-old female with a known history of coronary disease status post CABG and stent placement, aortic valve replacement, diabetes type 2 insulin-dependent, hypertension, hyperlipidemia, osteoarthritis, hypothyroidism, bilateral lower extremity peripheral neuropathy and ESRD on peritoneal dialysis for the past 3 years and history of gastric ulcer and lower GI bleeds with tra nsfusions were sent to ER from dialysis clinic due to low hemoglobin level. Patient was found to be hemoglobin of 5.6 on admission. Patient states that she has been having dark stools and was admitted to [facility] last week. Patient states that she did have 5 units of blood transfusion. She she had endoscopy and was told no active bleeding. Patient also had elevated troponin level, patient had cardiac catheterization but no intervention. Patient states that she was upset with all the procedures and left AMA. Otherwise patient denies any complaints of chest pain now. Mild shortness of breath and slightly increasing leg swelling. Denies any headache or dizziness or lightheadedness. No palpitations. No nausea vomiting abdominal pain or diarrhea. Patient is still having dark-colored stools. Laboratory showed WBC 16.3 hemoglobin 5.6 and platelets 492 Sodium 135 potassium 3.7 chloride 99, BUN 86 and creatinine 5.86 Calcium 8.3 magnesium 1.7 AST 19 ALT 11 and alk phos 77 Troponin 0 0.109 and albumin 2.2 11/18/2020 Patient is currently lying in the bed comfortably. Nausea vomiting is improved. Mild abdominal discomfort. Patient did have a bowel movement with dark stools this morning. No headache or dizziness or lightheadedness. Patient was seen by gastroenterology and is planning for capsule endoscopy. Laboratory data showed WBC 13.9 hemoglobin 6.9 and repeat hemoglobin 7.1 dated 07/02 Sodium 133 potassium 3.5 chloride 97 BUN 81 creatinine 5.45 and blood sugar is 250 Patient is being continued on peritoneal dialysis. Active Medications Generic Name Dose Route Start Last Admin Trade Name Freq PRN Reason Stop Dose Admin Darbepoetin Herman 60 mcg 11/18/20 14:00 11/18/20 18:27 Darbepoetin Herman 60 Mcg/0.3 Ml Syringe SQ 60 mcg Q7D LOCO Administration Folic Acid 1 mg 11/18/20 09:00 11/18/20 10:06 Folic Acid 1 Mg Tab PO 1 mg DAILY LOCO Administration Furosemide 60 mg 11/18/20 21:00 11/18/20 21:26 Furosemide 10 Mg/Ml 10 Ml Vial IV 60 mg BID LOCO Administration Peritoneal Dialysis Solution 106.25 g in 2,500 mls @ 0 mls/hr 11/18/20 00:00 11/18/20 18:27 Delflex With 4.25% Dextrose (2,500 Ml) INTRAPERIT 2,500 mls/hr Q6HR LOCO Administration Protocol As Directed Insulin Aspart 0 unit 11/18/20 12:30 11/18/20 21:26 Insulin Aspart (Novolog) 100 Unit/Ml Vial SQ 4 unit ACHS LOCO Administration Protocol Insulin Aspart 7 unit 11/19/20 07:30 Insulin Aspart (Novolog) 100 Unit/Ml Vial SQ AC-TID [facility] Insulin Detemir 53 unit 11/17/20 21:00 11/18/20 21:25 Insulin Detemir (Levemir) 100 Unit/Ml Syr SQ 53 unit HS LOCO Administration Isosorbide Mononitrate 30 mg 11/18/20 09:00 11/18/20 10:06 Isosorbide Mononitrate Er 30 Mg Tab.Er.24h PO 30 mg DAILY LOCO Administration Levothyroxine Sodium 176 mcg 11/18/20 06:30 11/18/20 05:58 Levothyroxine 88 Mcg Tab PO Not Given 0630 [facility] Lisinopril 20 mg 11/17/20 21:00 11/18/20 21:25 Lisinopril 20 Mg Tab PO 20 mg BID LOCO Administration Multivit/Ca Carb/B Cmplx/FA/Prenat 1 each 11/18/20 09:00 11/18/20 10:06 Folic Acid-Vit B Complex-Vit C 1 Cap PO 1 each DAILY LOCO Administration Pantoprazole Sodium 40 mg 11/17/20 15:45 11/18/20 21:25 Pantoprazole 40 Mg/10 Ml Vial IVP 40 mg BID LOCO Administration Objective - Vital Signs Vital signs: Vital Signs Temp 97.5 F L 11/18/20 12:35 Pulse 92 11/18/20 12:35 Resp 18 11/18/20 12:35 BP 131/58 11/18/20 12:35 Pulse Ox 100 11/18/20 12:35 Intake & Output 11/17/20 11/18/20 11/18/20 18:59 06:59 18:59 Intake Total 0 620 0 Output Total 30 500 Balance 0 590 -500 Weight 77.111 kg 81.4 kg 81.4 kg Intake: Oral 0 0 Blood Product 0 620 Rc As-1 Unit 310 [id number] Rc As-1 Unit 0 310 [id number] Output: Urine 30 Urine/Stool Mix 500 Other: Voiding Method Toilet Bedside Commode # Voids 1 # Bowel Movements 1 - Exam PHYSICAL EXAMINATION: Patient is lying in the bed comfortably, no acute distress, awake alert and oriented.. HEENT: Normocephalic. Neck is supple. Pupils reactive. Nostrils clear. Oral cavity is moist. Neck reveals no JVD, carotid bruits, or thyromegaly. CHEST EXAMINATION: Trachea is central. Symmetrical expansion.Basilar fine crackles. No wheezing. Lung blankenship clear to auscultation and percussion. CARDIAC: Normal S1, S2 with no gallops. No murmurs ABDOMEN: Soft. Bowel sounds normal. No organomegaly. No abdominal bruits. Extremities: rtrace b/l edema. No clubbing or cyanosis Neurologically awake, alert, oriented x3 with well-coordinated movements. No focal deficits noted Skin: No rash or skin lesions. Psychiatric: Coperative. Nonsuicidal Musculoskeletal: No joint swelling or deformity. Normal range of motion. - Labs CBC & Chem 7: 11/18/20 10:10 11/18/20 05:02 Labs: Abnormal Lab Results - Last 24 Hours (Table) 11/17/20 11/17/20 11/17/20 Range/Units 13:10 16:54 17:11 WBC (3.8-10.6) k/uL RBC (3.80-5.40) m/uL Hgb (11.4-16.0) gm/dL Hct (34.0-46.0) % RDW (11.5-15.5) % Neutrophils # (1.3-7.7) k/uL Sodium (137-145) mmol/L Chloride (98-107) mmol/L BUN (7-17) mg/dL Creatinine (0.52-1.04) mg/dL Glucose (74-99) mg/dL POC Glucose (mg/dL) 62 L 73 L (75-99) mg/dL Calcium (8.4-10.2) mg/dL TIBC (228-460) ug/dL % Saturation (12.00-45.00) Crossmatch See Detail 11/17/20 11/18/20 11/18/20 Range/Units 23:52 05:02 05:02 WBC 13.9 H (3.8-10.6) k/uL RBC 2.28 L (3.80-5.40) m/uL Hgb 6.9 L* (11.4-16.0) gm/dL Hct 21.0 L (34.0-46.0) % RDW 16.1 H (11.5-15.5) % Neutrophils # 11.3 H (1.3-7.7) k/uL Sodium 133 L (137-145) mmol/L Chloride 97 L (98-107) mmol/L BUN 81 H (7-17) mg/dL Creatinine 5.45 H (0.52-1.04) mg/dL Glucose 250 H (74-99) mg/dL POC Glucose (mg/dL) 116 H (75-99) mg/dL Calcium 8.2 L (8.4-10.2) mg/dL TIBC 150 L (228-460) ug/dL % Saturation 53.33 H (12.00-45.00) Crossmatch 11/18/20 11/18/20 11/18/20 Range/Units 06:08 10:10 11:38 WBC 13.7 H (3.8-10.6) k/uL RBC 2.28 L (3.80-5.40) m/uL Hgb 7.1 L (11.4-16.0) gm/dL Hct 20.9 L (34.0-46.0) % RDW (11.5-15.5) % Neutrophils # (1.3-7.7) k/uL Sodium (137-145) mmol/L Chloride (98-107) mmol/L BUN (7-17) mg/dL Creatinine (0.52-1.04) mg/dL Glucose (74-99) mg/dL POC Glucose (mg/dL) 274 H 218 H (75-99) mg/dL Calcium (8.4-10.2) mg/dL TIBC (228-460) ug/dL % Saturation (12.00-45.00) Crossmatch Assessment and Plan Assessment: Acute blood loss anemia secondary to GI bleed Symptomatic anemia ESRD on peritoneal dialysis Mild elevated troponin level possible demand ischemia Hypoalbuminemia Mild to moderate protein calorie malnutrition Diabetes type 2 insulin-dependent Coronary disease history of CABG History of stent placement Hypertension Hyperlipidemia Osteoarthritis Hypothyroidism Bilateral peripheral neuropathy diabetic History of gastric ulcer and lower GI bleed and history of transfusions DVT prophylaxis with SCDs Plan: Patient will be continued on gentle IV hydration and Protonix 40 mg IV twice daily. Monitor H&H closely. Patient will be continued on peritoneal dialysis. Continue with home blood pressure medications and levothyroxine other medi cations. Replace electrolytes. Continue to follow closely. Patient was seen by GI and is planning for capsule endoscopy.. Time with Patient: Greater than 30
[2020-11-19] MEDS: DIALYSIS (PERIT 4.25%) 2500 ML 106.25 G/2,500 ML BAG INTRAPERIT SCH ×6 (02:17→20:39)
[2020-11-19 06:31] LABS: Glucose,Whole Blood 238 mg/dL (75-99)
[2020-11-19] MEDS: INSULIN ASPART (NovoLOG) 100 UNIT/ML VIAL SQ SCH ×6 (07:05→21:59)
[2020-11-19] MEDS: LEVOTHYROXINE 88 MCG TAB PO SCH (07:05)
[2020-11-19 10:15] LABS: Anisocytosis Slight; HCT 22.2 % (34.0-46.0); HGB 7.3 gm/dL (11.4-16.0); Hypochromasia Slight; MCH 30.3 pg (25.0-35.0); MCHC 32.9 g/dL (31.0-37.0); MCV 91.9 fL (80.0-100.0); Mean Platelet Volume 8.5; Platelet Count 506 k/uL (150-450); Poikilocytosis Slight; RBC 2.42 m/uL (3.80-5.40); RDW 16.3 % (11.5-15.5)
[2020-11-19] MEDS: PANTOPRAZOLE 40 MG/10 ML VIAL IVP SCH ×2 (10:30→21:58)
[2020-11-19] MEDS: FOLIC ACID-VIT B COMPLEX-VIT C 1 CAP PO SCH (10:31)
[2020-11-19] MEDS: FOLIC ACID 1 MG TAB PO SCH (10:31)
[2020-11-19] MEDS: lisinopriL 20 MG TAB PO SCH ×2 (10:31→21:58)
[2020-11-19 10:49] LABS: Glucose,Whole Blood 56 mg/dL (75-99)
[2020-11-19] MEDS ORDERED: DEXTROSE 50% SYRINGE 50 ML IVP STA (11:00)
[2020-11-19 11:10] LABS: Glucose,Whole Blood 53 mg/dL (75-99)
[2020-11-19 11:18] LABS: Glucose,Whole Blood 216 mg/dL (75-99)
[2020-11-19] MEDS ORDERED: MIDODRINE 5 MG TAB PO STA (11:37)
[2020-11-19 11:42] LABS: Glucose,Whole Blood 202 mg/dL (75-99)
[2020-11-19] MEDS ORDERED: POTASSIUM CHLORIDE ER 20 MEQ TAB.ER PO STA (11:58)
--- NOTE | 2020-11-19 12:33 | P.PN ---
Subjective Progress Note Date: 11/19/20 Principal diagnosis: GI bleed, anemia This is a 80-year-old female with multiple medical comorbidities including diabetes mellitus, coronary artery disease, hyperlipidemia, hypertension, hypothyroidism, degenerative joint disease, end-stage renal disease on hemodialysis and history of anemia who presented to the hospital due to abnormal labs at hemodialysis. Apparently the patient was recently admitted to [facility] from last Monday until Monday or Monday, she left AGAINST MEDICAL ADVICE. While and [facility] she underwent an EGD on 11/11/[address] Lyles findings of a small hiatal hernia, 67 mm antral ulcers with multiple erosions, multiple superficial duodenal ulcers, with pigmented spots with no evidence of bleeding. No blood in the upper GI tract. Yesterday she went to hemodialysis where they jordi blood and she had a hemoglobin of 5 and was told to go to the emergency department. She presented to the emergency department yesterday and was noted to have a hemoglobin of 5.6. Status post 2 units of PRBC infusion. These repeat hemoglobin is 7.3. Yesterday evening she underwent a small bowel video capsule endoscopy, results are still pending. Patient states she's still feeling somewhat weak and tired. Nursing reported that they received a report she had black bowel movements through the evening, none today so far. She denies any abdominal pain, nausea, or vomiting. Objective - Vital Signs Vital signs: Vital Signs Temp 98 F 11/19/20 02:20 Pulse 84 11/19/20 02:20 Resp 18 11/19/20 02:20 BP 134/60 11/19/20 02:20 Pulse Ox 100 11/19/20 02:20 Intake & Output 11/18/20 11/19/20 11/19/20 18:59 06:59 18:59 Intake Total 0 Output Total 500 Balance -500 Weight 81.4 kg 79.3 kg Intake: Oral 0 Output: Urine/Stool Mix 500 Other: Voiding Method Bedside Commode Bedside Commode # Voids 1 # Bowel Movements 2 1 1 - Exam General appearance: The patient is alert, oriented, appears in no acute distress. HET: Head is normocephalic and atraumatic. Conjunctiva pink. Sclera anicteric. Neck: Supple without lymphadenopathy. Abdomen: Soft, nontender, nondistended with bowel sounds. No guarding or rigidity. Extremities: Normal skin color and turgor. No pedal edema Skin: No rashes, no jaundice Neurological: No focal deficits. Alert and oriented 3. - Labs CBC & Chem 7: 11/19/20 09:45 11/19/20 09:45 Labs: Abnormal Lab Results - Last 24 Hours (Table) 11/18/20 11/18/20 11/18/20 Range/Units 05:02 05:02 10:10 WBC 13.7 H (3.8-10.6) k/uL RBC 2.28 L (3.80-5.40) m/uL Hgb 7.1 L (11.4-16.0) gm/dL Hct 20.9 L (34.0-46.0) % POC Glucose (mg/dL) (75-99) mg/dL TIBC 150 L (228-460) ug/dL % Saturation 53.33 H (12.00-45.00) Ferritin 704.0 H (10.0-291.0) ng/mL 11/18/20 11/18/20 11/18/20 Range/Units 11:38 16:38 20:06 WBC (3.8-10.6) k/uL RBC (3.80-5.40) m/uL Hgb (11.4-16.0) gm/dL Hct (34.0-46.0) % POC Glucose (mg/dL) 218 H 362 H 284 H (75-99) mg/dL TIBC (228-460) ug/dL % Saturation (12.00-45.00) Ferritin (10.0-291.0) ng/mL 11/19/20 Range/Units 06:30 WBC (3.8-10.6) k/uL RBC (3.80-5.40) m/uL Hgb (11.4-16.0) gm/dL Hct (34.0-46.0) % POC Glucose (mg/dL) 238 H (75-99) mg/dL TIBC (228-460) ug/dL % Saturation (12.00-45.00) Ferritin (10.0-291.0) ng/mL Assessment and Plan (1) GI bleed Narrative/Plan: A 1-year-old female with multiple comorbidities including chronic anemia, end- stage renal disease on hemodialysis, diabetes mellitus, and coronary artery disease status post CABG and 3 stents. Patient was previously on Plavix, this was discontinued recently after she was admitted to [facility] on Monday for abnormal outpatient labs with anemia. The patient was recently [facility] for 5 days, she left AMA. She states she underwent an EGD while there and received 4 units of blood. Apparently Monday she was at hemodialysis and had blood drawn and was called yesterday and told that she had a low hemoglobin of 5. Being evaluated in the emergency department she had a hemoglobin of 5.6, she is status post 2 units of PRBC transfusion. Today's hemoglobin 7.1. Patient states that she's been having bright red blood mixed in her stool for the last 2 days duration. Today she was having black tarry stool with some maroon colored. States overall she is feeling fatigued and weak. Denies any abdominal pain. She has had multiple endoscopies in the last 2-3 years for workup for anemia. Last EGD done by Dr. Pugh in June of this year, which showed mild duodenitis, mild gastritis, small hiatal hernia, with no evidence of GI bleed or old blood. States her last colonoscopy was 2-3 years ago. Small bowel video capsule endoscopy results currently pending Current Visit: Yes Status: Acute Code(s): K92.2 - GASTROINTESTINAL HEMORRHAGE, UNSPECIFIED SNOMED Code(s): 85329555 (2) Normochromic normocytic anemia Current Visit: Yes Status: Acute Code(s): D64.9 - ANEMIA, UNSPECIFIED SNOMED Code(s): 72287075 Plan: 1. Advance to full liquid diet 2. Patient underwent small bowel video capsule endoscopy to survey evening, results pending 3. Daily CBC, transfuse for hemoglobin less than 7 4. Iron studies ordered 5. EGD report requested from [facility] and reviewed. Patient had multiple antral ulcers with erosions, and multiple superficial duodenal ulcers with pigmented spots, no evidence of bleeding. No blood and upper GI tract. Thank you for this consultation, we will continue to follow. Dr. Jose Luque I agree with the dictator's note, documented as a scribe by Gale Walker.
--- NOTE | 2020-11-19 13:08 | PN ---
PROGRESS NOTE The patient is seen for followup for end-stage renal disease. She is maintained on peritoneal dialysis and was admitted to the hospital with a hemoglobin of 5.6 g/dL. The patient has had a history of GI bleed with previous EGD done in June of this year. She had black tarry stools at the time of admission. She was also volume overloaded and is currently maintained on 4.25% solution exchanges every 6 hours as well as IV Lasix with significant improvement in volume status. Hemoglobin was 7.3 g/dL today. Patient is being followed by GI with plans for possible scope again. PHYSICAL EXAMINATION: On examination today, blood pressure was 134/60, heart rate 84 per minute. She is afebrile. Examination of the heart S1, S2. Examination of the lungs, bilateral breath sounds are heard. Abdomen is soft, nontender. Examination of lower extremities shows no significant edema. CHALKER SOLES exam grossly intact. LAB: Show sodium 138, potassium 3.0, BUN 68, serum creatinine 5.0. ASSESSMENT: 1. End-stage renal disease, on peritoneal dialysis. Continue current PD exchanges. We can switch to 2.5% solution alternating with 4.25% solution tomorrow. 2. Anemia secondary to gastrointestinal bleed, acute blood loss anemia associated with GI bleed, status post packed RBCs transfusion, maintained on Aranesp as well. 3. Hypertension controlled. 4. Chronic kidney disease, mineral bone disorder. 5. Volume overload currently improved. PLAN: Change dialysis to 4.25% solution alternating with 2.5% solutions tomorrow. Continue with IV Lasix for now. Plans for EGD/colonoscopy as per GI. Replace potassium. MMODL / IJN: [id number] /
[2020-11-19] MEDS: FUROSEMIDE 10 MG/ML 10 ML VIAL IV SCH ×2 (14:19→21:58)
[2020-11-19 16:22] LABS: Glucose,Whole Blood 279 mg/dL (75-99)
[2020-11-19] MEDS: ISOSORBIDE MONONITRATE ER 30 MG TAB.ER.24H PO SCH (18:13)
[2020-11-19 20:07] LABS: Glucose,Whole Blood 220 mg/dL (75-99)
[2020-11-19] MEDS: INSULIN DETEMIR (LEVEMIR) 100 UNIT/ML SYR SQ SCH (21:59)
[2020-11-19] MEDS: POTASSIUM CHLORIDE ER 20 MEQ TAB.ER PO SCH (21:59)
[2020-11-20] MEDS: DIALYSIS (PERIT 4.25%) 2500 ML 106.25 G/2,500 ML BAG INTRAPERIT SCH ×4 (02:29→20:49)
[2020-11-20 06:14] LABS: Glucose,Whole Blood 204 mg/dL (75-99)
[2020-11-20] MEDS: LEVOTHYROXINE 88 MCG TAB PO SCH (06:29)
[2020-11-20] MEDS: INSULIN ASPART (NovoLOG) 100 UNIT/ML VIAL SQ SCH ×4 (06:34→20:50)
[2020-11-20 08:20] LABS: Anisocytosis Slight; Basophils # (A) 0.1 k/uL (0-0.2); Basophils % (A) 1 %; Eosinophils # (A) 0.8 k/uL (0-0.7); Eosinophils % (A) 7 %; HCT 23.7 % (34.0-46.0); HGB 7.9 gm/dL (11.4-16.0); Hypochromasia Slight; Lymphocytes % (A) 8 %; MCH 30.9 pg (25.0-35.0); MCHC 33.2 g/dL (31.0-37.0); MCV 93.3 fL (80.0-100.0); Mean Platelet Volume 8.8; Monocytes # (A) 0.9 k/uL (0-1.0); Monocytes % (A) 7 %; Neutrophils # (A) 9.7 k/uL (1.3-7.7); Neutrophils % (A) 77 %; Platelet Count 476 k/uL (150-450); Poikilocytosis Slight; RBC 2.54 m/uL (3.80-5.40); RDW 16.2 % (11.5-15.5); WBC 12.6 k/uL (3.8-10.6)
--- NOTE | 2020-11-20 08:31 | P.PN ---
Subjective Progress Note Date: 11/20/20 Principal diagnosis: This is a 80-year-old female with ESRD, on peritoneal dialysis. Came in. GI bleed melanotic stool and hemoglobin of 5.6. She's been transfused 2 units packed cells Skin is feeling tired and weak. No abdominal pain no nausea vomiting she is on clear liquid and wants to eat more Posttransfusion of 2 units hemoglobin improved from 5.6-7.9 this morning. Vital signs are stable except for an occasional low blood pressure 90/52 more recent blood pressures are in the 120-140 range Objective - Vital Signs Vital signs: Vital Signs Temp 97.8 F 11/20/20 02:56 Pulse 80 11/20/20 02:56 Resp 17 11/20/20 02:56 BP 123/66 11/20/20 02:56 Pulse Ox 95 11/20/20 07:21 Intake & Output 11/19/20 11/20/20 11/20/20 18:59 06:59 18:59 Intake Total 320 300 Balance 320 300 Intake: Oral 320 300 Other: Voiding Method Toilet # Voids 2 # Bowel Movements 1 On examination awake alert oriented but seems to be tired and weak HEENT exam no JVP neck is supple no facial asymmetry Lungs are clear to auscultation good air entry bilaterally Heart sounds unremarkable for any murmur rub gallop Abdomen soft nontender nondistended Extremity exam was no edema Neurologically awake alert oriented but generalized weakness. - Labs CBC & Chem 7: 11/20/20 07:35 11/19/20 09:45 Labs: Abnormal Lab Results - Last 24 Hours (Table) 11/19/20 11/19/20 11/19/20 Range/Units 09:45 09:45 10:43 WBC 15.0 H (3.8-10.6) k/uL RBC 2.42 L (3.80-5.40) m/uL Hgb 7.3 L (11.4-16.0) gm/dL Hct 22.2 L (34.0-46.0) % RDW 16.3 H (11.5-15.5) % Plt Count 506 H (150-450) k/uL Neutrophils # (1.3-7.7) k/uL Eosinophils # (0-0.7) k/uL Potassium 3.0 L (3.5-5.1) mmol/L Carbon Dioxide 31 H (22-30) mmol/L BUN 68 H (7-17) mg/dL Creatinine 5.09 H (0.52-1.04) mg/dL Glucose 36 L* (74-99) mg/dL POC Glucose (mg/dL) 56 L (75-99) mg/dL 11/19/20 11/19/20 11/19/20 Range/Units 10:59 11:15 11:41 WBC (3.8-10.6) k/uL RBC (3.80-5.40) m/uL Hgb (11.4-16.0) gm/dL Hct (34.0-46.0) % RDW (11.5-15.5) % Plt Count (150-450) k/uL Neutrophils # (1.3-7.7) k/uL Eosinophils # (0-0.7) k/uL Potassium (3.5-5.1) mmol/L Carbon Dioxide (22-30) mmol/L BUN (7-17) mg/dL Creatinine (0.52-1.04) mg/dL Glucose (74-99) mg/dL POC Glucose (mg/dL) 53 L 216 H 202 H (75-99) mg/dL 11/19/20 11/19/20 11/20/20 Range/Units 16:21 20:05 06:12 WBC (3.8-10.6) k/uL RBC (3.80-5.40) m/uL Hgb (11.4-16.0) gm/dL Hct (34.0-46.0) % RDW (11.5-15.5) % Plt Count (150-450) k/uL Neutrophils # (1.3-7.7) k/uL Eosinophils # (0-0.7) k/uL Potassium (3.5-5.1) mmol/L Carbon Dioxide (22-30) mmol/L BUN (7-17) mg/dL Creatinine (0.52-1.04) mg/dL Glucose (74-99) mg/dL POC Glucose (mg/dL) 279 H 220 H 204 H (75-99) mg/dL 11/20/20 Range/Units 07:35 WBC 12.6 H (3.8-10.6) k/uL RBC 2.54 L (3.80-5.40) m/uL Hgb 7.9 L (11.4-16.0) gm/dL Hct 23.7 L (34.0-46.0) % RDW 16.2 H (11.5-15.5) % Plt Count 476 H (150-450) k/uL Neutrophils # 9.7 H (1.3-7.7) k/uL Eosinophils # 0.8 H (0-0.7) k/uL Potassium (3.5-5.1) mmol/L Carbon Dioxide (22-30) mmol/L BUN (7-17) mg/dL Creatinine (0.52-1.04) mg/dL Glucose (74-99) mg/dL POC Glucose (mg/dL) (75-99) mg/dL Assessment and Plan Plan: Impression 1. ESRD on peritoneal dialysis. She is at home doing 4 exchanges of 2 L and using 2.5%. Currently here she is on 4.5%, 2500 mL 4 exchanges a day. Ultrafiltration volume is not clearly documented 2. Admitted with melanotic stool and hemoglobin of 5.6 is posttransfusion 2 units with hemoglobin coming up to 7.9. 3. Recent admission at [facility] [place]. EGD on 11/11/2020 with antral ulcers and multiple erosions as well as duodenal ulcers. Status post capsule endoscopy results pending. 4. Hypokalemia secondary to poor intake potassium is 3. She is on KCl. Today's labs are pending 5. Diabetes mellitus blood sugars are somewhat high. Recommendation 1. Strict I's and O's including the PD exchanges. 2. Maintain current medication. 3. Watch hemoglobin closely and transfuse as needed. 4. Check potassium
[2020-11-20 08:35] LABS: Calcium 9.1 mg/dL (8.4-10.2); Potassium 3.5 mmol/L (3.5-5.1)
[2020-11-20] MEDS: PANTOPRAZOLE 40 MG/10 ML VIAL IVP SCH ×2 (09:41→20:50)
[2020-11-20] MEDS: POTASSIUM CHLORIDE ER 20 MEQ TAB.ER PO SCH (09:41)
[2020-11-20] MEDS: FOLIC ACID-VIT B COMPLEX-VIT C 1 CAP PO SCH (09:41)
[2020-11-20] MEDS: FOLIC ACID 1 MG TAB PO SCH (09:41)
[2020-11-20] MEDS: ACETAMINOPHEN TAB 325 MG TAB PO PRN ×2 (09:46→16:10)
[2020-11-20] MEDS ORDERED: MORPHINE SULFATE 2 MG/ML SYRINGE IVP STA (10:17)
[2020-11-20] MEDS: lisinopriL 20 MG TAB PO SCH ×2 (10:19→20:50)
[2020-11-20] MEDS: FUROSEMIDE 10 MG/ML 10 ML VIAL IV SCH ×2 (10:20→20:49)
[2020-11-20] MEDS: ISOSORBIDE MONONITRATE ER 30 MG TAB.ER.24H PO SCH (10:20)
[2020-11-20] MEDS ORDERED: SODIUM CHLORIDE 0.9% 500 ML 500 ML IV ONE ×3 (11:35→20:51)
[2020-11-20 12:01] LABS: Glucose,Whole Blood 136 mg/dL (75-99)
--- NOTE | 2020-11-20 13:14 | P.PN ---
Subjective Progress Note Date: 11/20/20 Principal diagnosis: GI bleed, anemia This is a 80-year-old female with multiple medical comorbidities including diabetes mellitus, coronary artery disease, hyperlipidemia, hypertension, hypothyroidism, degenerative joint disease, end-stage renal disease on peritoneal dialysis and history of anemia who presented to the hospital due to abnormal labs at hemodialysis. Apparently the patient was recently admitted to [facility] from last Monday until Monday or Monday, she left AGAINST MEDICAL ADVICE. While and [facility] she underwent an EGD on 11/11/[address] Lyles findings of a small hiatal hernia, 67 mm antral ulcers with multiple erosions, multiple superficial duodenal ulcers, with pigmented spots with no evidence of bleeding. No blood in the upper GI tract. Bilateral hemodialysis she has labs drawn with and abnormal low hemoglobin and was told to come to the emergency department for further evaluation and blood transfusion. Patient underwent a small bowel video capsule endoscopy on Monday evening. Unfortunately yesterday the video had not been uploaded. Video was reviewed this morning with evidence of active bleeding, multiple AVMs. Patient slightly confused this morning and states she has not had a bowel movement or urinated in 2 weeks. She had initial low blood pressure of 70s over 40s. She's not had any black stools or bowel movement since yesterday afternoon. Plantar proceed with upper endoscopy with possible push enteroscopy this afternoon. Objective - Vital Signs Vital signs: Vital Signs Temp 97.8 F 11/20/20 02:56 Pulse 80 11/20/20 02:56 Resp 17 11/20/20 02:56 BP 123/66 11/20/20 02:56 Pulse Ox 95 11/20/20 07:21 Intake & Output 11/19/20 11/20/20 11/20/20 18:59 06:59 18:59 Intake Total 320 300 118 Balance 320 300 118 Intake: Oral 320 300 118 Other: Voiding Method Toilet # Voids 2 # Bowel Movements 1 - Labs CBC & Chem 7: 11/20/20 07:35 11/20/20 07:35 Labs: Abnormal Lab Results - Last 24 Hours (Table) 11/19/20 11/19/20 11/19/20 Range/Units 09:45 09:45 10:43 WBC 15.0 H (3.8-10.6) k/uL RBC 2.42 L (3.80-5.40) m/uL Hgb 7.3 L (11.4-16.0) gm/dL Hct 22.2 L (34.0-46.0) % RDW 16.3 H (11.5-15.5) % Plt Count 506 H (150-450) k/uL Neutrophils # (1.3-7.7) k/uL Eosinophils # (0-0.7) k/uL Potassium 3.0 L (3.5-5.1) mmol/L Carbon Dioxide 31 H (22-30) mmol/L BUN 68 H (7-17) mg/dL Creatinine 5.09 H (0.52-1.04) mg/dL Glucose 36 L* (74-99) mg/dL POC Glucose (mg/dL) 56 L (75-99) mg/dL 11/19/20 11/19/20 11/19/20 Range/Units 10:59 11:15 11:41 WBC (3.8-10.6) k/uL RBC (3.80-5.40) m/uL Hgb (11.4-16.0) gm/dL Hct (34.0-46.0) % RDW (11.5-15.5) % Plt Count (150-450) k/uL Neutrophils # (1.3-7.7) k/uL Eosinophils # (0-0.7) k/uL Potassium (3.5-5.1) mmol/L Carbon Dioxide (22-30) mmol/L BUN (7-17) mg/dL Creatinine (0.52-1.04) mg/dL Glucose (74-99) mg/dL POC Glucose (mg/dL) 53 L 216 H 202 H (75-99) mg/dL 11/19/20 11/19/20 11/20/20 Range/Units 16:21 20:05 06:12 WBC (3.8-10.6) k/uL RBC (3.80-5.40) m/uL Hgb (11.4-16.0) gm/dL Hct (34.0-46.0) % RDW (11.5-15.5) % Plt Count (150-450) k/uL Neutrophils # (1.3-7.7) k/uL Eosinophils # (0-0.7) k/uL Potassium (3.5-5.1) mmol/L Carbon Dioxide (22-30) mmol/L BUN (7-17) mg/dL Creatinine (0.52-1.04) mg/dL Glucose (74-99) mg/dL POC Glucose (mg/dL) 279 H 220 H 204 H (75-99) mg/dL 11/20/20 11/20/20 Range/Units 07:35 07:35 WBC 12.6 H (3.8-10.6) k/uL RBC 2.54 L (3.80-5.40) m/uL Hgb 7.9 L (11.4-16.0) gm/dL Hct 23.7 L (34.0-46.0) % RDW 16.2 H (11.5-15.5) % Plt Count 476 H (150-450) k/uL Neutrophils # 9.7 H (1.3-7.7) k/uL Eosinophils # 0.8 H (0-0.7) k/uL Potassium (3.5-5.1) mmol/L Carbon Dioxide (22-30) mmol/L BUN 58 H (7-17) mg/dL Creatinine 5.09 H (0.52-1.04) mg/dL Glucose 122 H (74-99) mg/dL POC Glucose (mg/dL) (75-99) mg/dL Assessment and Plan (1) GI bleed Narrative/Plan: A 1-year-old female with multiple comorbidities including chronic anemia, end- stage renal disease on hemodialysis, diabetes mellitus, and coronary artery disease status post CABG and 3 stents. Patient was previously on Plavix, this was discontinued recently after she was admitted to [facility] on Monday for abnormal outpatient labs with anemia. The patient was recently [facility] for 5 days, she left AMA. She states she underwent an EGD while there and received 4 units of blood. Apparently Monday she was at hemodialysis and had blood drawn and was called yesterday and told that she had a low hem oglobin of 5. Being evaluated in the emergency department she had a hemoglobin of 5.6, she is status post 2 units of PRBC transfusion. Today's hemoglobin 7.1. Patient states that she's been having bright red blood mixed in her stool for the last 2 days duration. Today she was having black tarry stool with some maroon colored. States overall she is feeling fatigued and weak. Denies any abdominal pain. She has had multiple endoscopies in the last 2-3 years for workup for anemia. Last EGD done by Dr. Pugh in June of this year, which showed mild duodenitis, mild gastritis, small hiatal hernia, with no evidence of GI bleed or old blood. States her last colonoscopy was 2-3 years ago. Small bowel video capsule endoscopy results currently pending Current Visit: Yes Status: Acute Code(s): K92.2 - GASTROINTESTINAL HEMORRHAGE, UNSPECIFIED SNOMED Code(s): 58799391 (2) Normochromic normocytic anemia Current Visit: Yes Status: Acute Code(s): D64.9 - ANEMIA, UNSPECIFIED SNOMED Code(s): 43438968 Plan: 1. Nothing by mouth 2. Patient underwent small bowel video capsule endoscopy with evidence of active bleeding, AVMs 3. Iron studies ordered 4. Will proceed with EGD with possible push enteroscopy this afternoon. Please obtain consent from patient and . 5. EGD report requested from [facility] and reviewed. Patient had multiple antral ulcers with erosions, and multiple superficial duodenal ulcers with pigmented spots, no evidence of bleeding. No blood and upper GI tract. Thank you for this consultation. Thank you for allowing us to participate in the care of the patient, the GI s ervice will sign off, gastroenterology will not be available at the hospital this weekend and if further evaluation by gastroenterology is required the patient will need transfer as per the primary team's discretion. Dr. Jose Luque I agree with the dictator's note, documented as a scribe by Gale Walker.
[2020-11-20] MEDS ORDERED: LIDOCAINE 1% INJ 10MG/ML (20 ML MDV) ONE (13:29)
[2020-11-20] MEDS ORDERED: PHENYLEPHRINE-0.9% NACL SYG 1,000 MCG/10 ML SYRINGE ONE (13:29)
[2020-11-20] MEDS ORDERED: PROPOFOL 10 MG/ML 20 ML VIAL IV ONE (13:29)
--- NOTE | 2020-11-20 13:45 | P.PCN ---
Date of Procedure: 11/20/20 Procedure(s) Performed: BRIEF HISTORY: Patient is a 80-year-old, pleasant, white female admitted hospital with severe symptomatic anemia and hemoglobin of 5.5 requiring 2 units of PRBC transition.. She had upper endoscopy done at [facility] on November 11 for acute upper GI bleed and was noted to have multiple small duodenal and antral ulcers that were nonbleeding. Aspirin and Plavix have been on hold since then. She continues to have black tarry stools and hence she had a small bowel capsule endoscopy done yesterday that revealed actively oozing in the duodenal bulb and second part of the duodenum and hence scheduled for an upper endoscopy to evaluate this further PROCEDURE PERFORMED: Esophagogastroduodenoscopy with gold probe cautery. PREOPERATIVE DIAGNOSIS: Acute upper GI bleed. IV sedation per anesthesia. PROCEDURE: After informed consent was obtained, the patient was brought into the endoscopy unit. IV sedation was administered by Anesthesia under continuous monitoring. Initially the Olympus GIF-140 video endoscope was inserted into the mouth. Esophagus intubated without any difficulty. It was gradually advanced into the stomach and duodenum and carefully examined. The bulb and the second part of the duodenum had scattered non-bleeding angiectasia that they cauterized using a gold probe. There was a 1 cm duodenal bulbar ulcer along the duodenal sweep with active oozing and this was cauterized with the gold probe with good hemostasis.. The scope at this time was withdrawn to the stomach, adequately insufflated with air, and upon careful examination, mucosa of the antrum, had multiple small antral ulcerations which are nonbleeding measuring between 3-5 mm in size. The body, cardia and the fundus appeared normal. The scope was then withdrawn into the esophagus. The GE junction was located at 39 cm from the incisors. The esophagus appeared normal. There were no erosions or ulcerations seen and the patient tolerated the procedure well. IMPRESSION: 1. 1 cm clean based duodenal bulbar ulcer along the duodenal sweep with active oozing status post cautery using a cold. 2. Multiple small antral ulcers measuring between 3-5 mm in size with no active bleeding. 3. Small scattered nonbleeding angiectasia in the head a part of the duodenum status post cautery RECOMMENDATIONS: The findings of this examination were discussed with the patient. She'll be continued on Protonix 40 mg twice daily. Monitor CBC daily. Advance diet as tolerated..
[2020-11-20 16:57] LABS: Glucose,Whole Blood 165 mg/dL (75-99)
[2020-11-20 20:11] LABS: Glucose,Whole Blood 292 mg/dL (75-99)
[2020-11-20] MEDS: INSULIN DETEMIR (LEVEMIR) 100 UNIT/ML SYR SQ SCH (20:50)
[2020-11-21] MEDS: lisinopriL 20 MG TAB PO SCH ×2 (01:24→21:42)
[2020-11-21] MEDS: DIALYSIS (PERIT 4.25%) 2500 ML 106.25 G/2,500 ML BAG INTRAPERIT SCH (01:25)
[2020-11-21 06:21] LABS: Glucose,Whole Blood 86 mg/dL (75-99)
[2020-11-21] MEDS: INSULIN ASPART (NovoLOG) 100 UNIT/ML VIAL SQ SCH ×4 (06:22→20:17)
[2020-11-21] MEDS: LEVOTHYROXINE 88 MCG TAB PO SCH (06:24)
[2020-11-21 08:05] LABS: Anisocytosis Slight; Basophils # (A) 0.1 k/uL (0-0.2); Basophils % (A) 0 %; Eosinophils # (A) 0.9 k/uL (0-0.7); Eosinophils % (A) 5 %; HCT 24.2 % (34.0-46.0); Hypochromasia Moderate; Lymphocytes # (A) 1.8 k/uL (1.0-4.8); Lymphocytes % (A) 11 %; MCH 31.4 pg (25.0-35.0); MCHC 33.1 g/dL (31.0-37.0); MCV 95.1 fL (80.0-100.0); Macrocytosis Slight; Mean Platelet Volume 8.9; Monocytes # (A) 0.8 k/uL (0-1.0); Monocytes % (A) 5 %; Neutrophils # (A) 12.9 k/uL (1.3-7.7); Neutrophils % (A) 78 %; Platelet Count 488 k/uL (150-450); Poikilocytosis Slight; RBC 2.55 m/uL (3.80-5.40); RDW 16.9 % (11.5-15.5); WBC 16.6 k/uL (3.8-10.6)
[2020-11-21 08:48] LABS: Calcium 8.8 mg/dL (8.4-10.2); Potassium 3.7 mmol/L (3.5-5.1)
[2020-11-21] MEDS: DIALYSIS (PERIT 1.5%) 2,500 ML 30 G/2,000 ML BAG INTRAPERIT SCH ×3 (09:08→18:03)
--- NOTE | 2020-11-21 10:02 | P.PN ---
Subjective Patient is seen in follow-up for end-stage renal disease. She is maintained on peritoneal dialysis. Heavy. Rangel Underwent EGD yesterday with cautery of duodenal ulcer. No active bleeding. No chest pain or shortness of breath. Blood pressure was low last night and she received a fluid bolus. Blood pressure 105/52 this morning. Vital signs are stable. General: The patient appeared well nourished and normally developed. HEENT: Head exam is unremarkable. Neck is without jugular venous distension. LUNGS: Breath sounds decreased. HEART: Rate and Rhythm are regular. ABDOMEN: Soft, no distention. EXTREMITITES: No edema. Objective - Vital Signs Vital signs: Vital Signs Temp 98.2 F 11/20/20 20:00 Pulse 90 11/21/20 04:00 Resp 18 11/21/20 04:00 BP 105/52 11/21/20 04:00 Pulse Ox 97 11/21/20 04:00 Intake & Output 11/20/20 11/21/20 11/21/20 18:59 06:59 18:59 Intake Total 836 970 240 Balance 836 970 240 Weight 79.3 kg Intake: IV 100 Intake, IV Titration 500 Amount Sodium Chloride 0.9% 500 500 ml 500 ml @ 0 mls/hr IV . [facility] Rx#: [id number] Oral 236 970 240 Other: Voiding Method Toilet # Voids 0 - Labs CBC & Chem 7: 11/21/20 07:43 11/21/20 07:43 Labs: Abnormal Lab Results - Last 24 Hours (Table) 11/20/20 11/20/20 11/20/20 Range/Units 11:45 16:51 20:10 WBC (3.8-10.6) k/uL RBC (3.80-5.40) m/uL Hgb (11.4-16.0) gm/dL Hct (34.0-46.0) % RDW (11.5-15.5) % Plt Count (150-450) k/uL Neutrophils # (1.3-7.7) k/uL Eosinophils # (0-0.7) k/uL Sodium (137-145) mmol/L BUN (7-17) mg/dL Creatinine (0.52-1.04) mg/dL Glucose (74-99) mg/dL POC Glucose (mg/dL) 136 H 165 H 292 H (75-99) mg/dL 11/21/20 11/21/20 Range/Units 07:43 07:43 WBC 16.6 H (3.8-10.6) k/uL RBC 2.55 L (3.80-5.40) m/uL Hgb 8.0 L (11.4-16.0) gm/dL Hct 24.2 L (34.0-46.0) % RDW 16.9 H (11.5-15.5) % Plt Count 488 H (150-450) k/uL Neutrophils # 12.9 H (1.3-7.7) k/uL Eosinophils # 0.9 H (0-0.7) k/uL Sodium 135 L (137-145) mmol/L BUN 53 H (7-17) mg/dL Creatinine 5.74 H (0.52-1.04) mg/dL Glucose 58 L (74-99) mg/dL POC Glucose (mg/dL) (75-99) mg/dL Assessment and Plan Plan: Assessment: 1. End-stage renal disease maintained on peritoneal dialysis. 2. Acute GI bleed status post EGD with cautery of duodenal ulcer. Nonbleeding angiectasia as were noted. Nonbleeding antral ulcers present as well. Status post blood transfusion. On Aranesp. 3. Diabetes mellitus. 4. Hypotension. Improved with fluid bolus. Plan: Stop lisinopril. Change PD exchanges to 2 L every 6 hours with 1.5% solution. Diet to be advanced per GI.
[2020-11-21] MEDS: FUROSEMIDE 10 MG/ML 10 ML VIAL IV SCH ×2 (10:14→20:17)
[2020-11-21] MEDS: ISOSORBIDE MONONITRATE ER 30 MG TAB.ER.24H PO SCH (10:15)
[2020-11-21] MEDS: PANTOPRAZOLE 40 MG/10 ML VIAL IVP SCH ×2 (10:16→20:17)
[2020-11-21] MEDS: FOLIC ACID 1 MG TAB PO SCH (10:16)
[2020-11-21] MEDS: FOLIC ACID-VIT B COMPLEX-VIT C 1 CAP PO SCH (10:16)
[2020-11-21 11:47] LABS: Glucose,Whole Blood 176 mg/dL (75-99)
--- NOTE | 2020-11-21 16:32 | P.PN ---
Subjective Progress Note Date: 11/19/20 Principal diagnosis: Acute blood loss anemia secondary to GI bleed Symptomatic anemia Patient is a 80-year-old female with a known history of coronary disease status post CABG and stent placement, aortic valve replacement, diabetes type 2 insulin-dependent, hypertension, hyperlipidemia, osteoarthritis, hypothyroidism, bilateral lower extremity peripheral neuropathy and ESRD on peritoneal dialysis for the past 3 years and history of gastric ulcer and lower GI bleeds with tra nsfusions were sent to ER from dialysis clinic due to low hemoglobin level. Patient was found to be hemoglobin of 5.6 on admission. Patient states that she has been having dark stools and was admitted to [facility] last week. Patient states that she did have 5 units of blood transfusion. She she had endoscopy and was told no active bleeding. Patient also had elevated troponin level, patient had cardiac catheterization but no intervention. Patient states that she was upset with all the procedures and left AMA. Otherwise patient denies any complaints of chest pain now. Mild shortness of breath and slightly increasing leg swelling. Denies any headache or dizziness or lightheadedness. No palpitations. No nausea vomiting abdominal pain or diarrhea. Patient is still having dark-colored stools. Laboratory showed WBC 16.3 hemoglobin 5.6 and platelets 492 Sodium 135 potassium 3.7 chloride 99, BUN 86 and creatinine 5.86 Calcium 8.3 magnesium 1.7 AST 19 ALT 11 and alk phos 77 Troponin 0 0.109 and albumin 2.2 11/18/2020 Patient is currently lying in the bed comfortably. Nausea vomiting is improved. Mild abdominal discomfort. Patient did have a bowel movement with dark stools this morning. No headache or dizziness or lightheadedness. Patient was seen by gastroenterology and is planning for capsule endoscopy. Laboratory data showed WBC 13.9 hemoglobin 6.9 and repeat hemoglobin 7.1 dated 07/02 Sodium 133 potassium 3.5 chloride 97 BUN 81 creatinine 5.45 and blood sugar is 250 Patient is being continued on peritoneal dialysis. 11/19/2020 Patient is sit in the chair. Complains of shortness of breath. Patient is undergoing peritoneal dialysis. Patient did haveBowel movement with dark stools today. Patient had capsule endoscopy and results are still pending. No compressive dizziness or lightheadedness. No nausea vomiting or abdominal pain. Nephrology and GI is on board. Current medications reviewed. Objective - Vital Signs Vital signs: Vital Signs Temp 97.3 F L 11/19/20 13:07 Pulse 89 11/19/20 13:07 Resp 18 11/19/20 13:07 BP 145/45 11/19/20 13:07 Pulse Ox 96 11/19/20 13:07 Intake & Output 11/18/20 11/19/20 11/19/20 18:59 06:59 18:59 Intake Total 0 240 Output Total 500 Balance -500 240 Weight 81.4 kg 79.3 kg Intake: Oral 0 240 Output: Urine/Stool Mix 500 Other: Voiding Method Bedside Commode Bedside Commode # Voids 2 # Bowel Movements 2 1 1 - Exam PHYSICAL EXAMINATION: Patient is lying in the bed comfortably, no acute distress, awake alert and oriented.. HEENT: Normocephalic. Neck is supple. Pupils reactive. Nostrils clear. Oral cavity is moist. Neck reveals no JVD, carotid bruits, or thyromegaly. CHEST EXAMINATION: Trachea is central. Symmetrical expansion.Basilar fine crackles. No wheezing. Lung blankenship clear to auscultation and percussion. CARDIAC: Normal S1, S2 with no gallops. No murmurs ABDOMEN: Soft. Bowel sounds normal. No organomegaly. No abdominal bruits. Extremities: rtrace b/l edema. No clubbing or cyanosis Neurologically awake, alert, oriented x3 with well-coordinated movements. No focal deficits noted Skin: No rash or skin lesions. Psychiatric: Coperative. Nonsuicidal Musculoskeletal: No joint swelling or deformity. Normal range of motion. - Labs CBC & Chem 7: 11/21/20 07:43 11/21/20 07:43 Labs: Abnormal Lab Results - Last 24 Hours (Table) 11/18/20 11/18/20 11/19/20 Range/Units 05:02 20:06 06:30 WBC (3.8-10.6) k/uL RBC (3.80-5.40) m/uL Hgb (11.4-16.0) gm/dL Hct (34.0-46.0) % RDW (11.5-15.5) % Plt Count (150-450) k/uL Potassium (3.5-5.1) mmol/L Carbon Dioxide (22-30) mmol/L BUN (7-17) mg/dL Creatinine (0.52-1.04) mg/dL Glucose (74-99) mg/dL POC Glucose (mg/dL) 284 H 238 H (75-99) mg/dL Ferritin 704.0 H (10.0-291.0) ng/mL 11/19/20 11/19/20 11/19/20 Range/Units 09:45 09:45 10:43 WBC 15.0 H (3.8-10.6) k/uL RBC 2.42 L (3.80-5.40) m/uL Hgb 7.3 L (11.4-16.0) gm/dL Hct 22.2 L (34.0-46.0) % RDW 16.3 H (11.5-15.5) % Plt Count 506 H (150-450) k/uL Potassium 3.0 L (3.5-5.1) mmol/L Carbon Dioxide 31 H (22-30) mmol/L BUN 68 H (7-17) mg/dL Creatinine 5.09 H (0.52-1.04) mg/dL Glucose 36 L* (74-99) mg/dL POC Glucose (mg/dL) 56 L (75-99) mg/dL Ferritin (10.0-291.0) ng/mL 11/19/20 11/19/20 11/19/20 Range/Units 10:59 11:15 11:41 WBC (3.8-10.6) k/uL RBC (3.80-5.40) m/uL Hgb (11.4-16.0) gm/dL Hct (34.0-46.0) % RDW (11.5-15.5) % Plt Count (150-450) k/uL Potassium (3.5-5.1) mmol/L Carbon Dioxide (22-30) mmol/L BUN (7-17) mg/dL Creatinine (0.52-1.04) mg/dL Glucose (74-99) mg/dL POC Glucose (mg/dL) 53 L 216 H 202 H (75-99) mg/dL Ferritin (10.0-291.0) ng/mL 11/19/20 Range/Units 16:21 WBC (3.8-10.6) k/uL RBC (3.80-5.40) m/uL Hgb (11.4-16.0) gm/dL Hct (34.0-46.0) % RDW (11.5-15.5) % Plt Count (150-450) k/uL Potassium (3.5-5.1) mmol/L Carbon Dioxide (22-30) mmol/L BUN (7-17) mg/dL Creatinine (0.52-1.04) mg/dL Glucose (74-99) mg/dL POC Glucose (mg/dL) 279 H (75-99) mg/dL Ferritin (10.0-291.0) ng/mL Assessment and Plan Assessment: Acute blood loss anemia secondary to GI bleed. Status post capsule endoscopy. Symptomatic anemia ESRD on peritoneal dialysis Mild elevated troponin level possible demand ischemia Hypoalbuminemia Mild to moderate protein calorie malnutrition Diabetes type 2 insulin-dependent Coronary disease history of CABG History of stent placement Hypertension Hyperlipidemia Osteoarthritis Hypothyroidism Bilateral peripheral neuropathy diabetic History of gastric ulcer and lower GI bleed and history of transfusions DVT prophylaxis with SCDs Plan: Patient will be continued on Protonix 40 mg IV twice daily. Status post capsule endoscopy. Monitor H&H closely. Patient will be continued on peritoneal dialysis. Continue with home blood pressure medications and levothyroxine other medications. Replace electrolytes. Continue to follow closely. GI and nephrology is on board... Time with Patient: Greater than 30
--- NOTE | 2020-11-21 16:35 | P.PN ---
Subjective Progress Note Date: 11/20/20 Principal diagnosis: Acute blood loss anemia secondary to GI bleed Symptomatic anemia Patient is a 80-year-old female with a known history of coronary disease status post CABG and stent placement, aortic valve replacement, diabetes type 2 insulin-dependent, hypertension, hyperlipidemia, osteoarthritis, hypothyroidism, bilateral lower extremity peripheral neuropathy and ESRD on peritoneal dialysis for the past 3 years and history of gastric ulcer and lower GI bleeds with tra nsfusions were sent to ER from dialysis clinic due to low hemoglobin level. Patient was found to be hemoglobin of 5.6 on admission. Patient states that she has been having dark stools and was admitted to [facility] last week. Patient states that she did have 5 units of blood transfusion. She she had endoscopy and was told no active bleeding. Patient also had elevated troponin level, patient had cardiac catheterization but no intervention. Patient states that she was upset with all the procedures and left AMA. Otherwise patient denies any complaints of chest pain now. Mild shortness of breath and slightly increasing leg swelling. Denies any headache or dizziness or lightheadedness. No palpitations. No nausea vomiting abdominal pain or diarrhea. Patient is still having dark-colored stools. Laboratory showed WBC 16.3 hemoglobin 5.6 and platelets 492 Sodium 135 potassium 3.7 chloride 99, BUN 86 and creatinine 5.86 Calcium 8.3 magnesium 1.7 AST 19 ALT 11 and alk phos 77 Troponin 0 0.109 and albumin 2.2 11/18/2020 Patient is currently lying in the bed comfortably. Nausea vomiting is improved. Mild abdominal discomfort. Patient did have a bowel movement with dark stools this morning. No headache or dizziness or lightheadedness. Patient was seen by gastroenterology and is planning for capsule endoscopy. Laboratory data showed WBC 13.9 hemoglobin 6.9 and repeat hemoglobin 7.1 dated 07/02 Sodium 133 potassium 3.5 chloride 97 BUN 81 creatinine 5.45 and blood sugar is 250 Patient is being continued on peritoneal dialysis. 11/19/2020 Patient is sit in the chair. Complains of shortness of breath. Patient is undergoing peritoneal dialysis. Patient did haveBowel movement with dark stools today. Patient had capsule endoscopy and results are still pending. No compressive dizziness or lightheadedness. No nausea vomiting or abdominal pain. Nephrology and GI is on board. 11/20/2020 Patient is sitting in the chair. Complains of tightness and weak. No complaints of chest pain or worsening shortness breath. Hemoglobin is 7.9 today. Capsule endoscopy showed multiple AVMs. GI is planning for upper endoscopy with possible push enteroscopy. Continued on peritoneal dialysis. Blood pressure is on the lower side and hold blood pressure medications. Patient has been afebrile. No cough or sputum production. Current medications reviewed. Objective - Vital Signs Vital signs: Vital Signs Temp 97.7 F 11/20/20 16:00 Pulse 83 11/20/20 16:00 Resp 16 11/20/20 16:00 BP 91/46 11/20/20 16:00 Pulse Ox 96 11/20/20 16:00 Intake & Output 11/20/20 11/20/20 11/21/20 06:59 18:59 06:59 Intake Total 300 836 Balance 300 836 Weight 79.3 kg Intake: IV 100 Intake, IV Titration 500 Amount Sodium Chloride 0.9% 500 500 ml 500 ml @ 0 mls/hr IV . [facility] Rx#: [id number] Oral 300 236 Other: Voiding Method Toilet - Exam PHYSICAL EXAMINATION: Patient is lying in the bed comfortably, no acute distress, awake alert and oriented.. HEENT: Normocephalic. Neck is supple. Pupils reactive. Nostrils clear. Oral cavity is moist. Neck reveals no JVD, carotid bruits, or thyromegaly. CHEST EXAMINATION: Trachea is central. Symmetrical expansion.Basilar fine crackles. No wheezing. Lung blankenship clear to auscultation and percussion. CARDIAC: Normal S1, S2 with no gallops. No murmurs ABDOMEN: Soft. Bowel sounds normal. No organomegaly. No abdominal bruits. Extremities: rtrace b/l edema. No clubbing or cyanosis Neurologically awake, alert, oriented x3 with well-coordinated movements. No focal deficits noted Skin: No rash or skin lesions. Psychiatric: Coperative. Nonsuicidal Musculoskeletal: No joint swelling or deformity. Normal range of motion. - Labs CBC & Chem 7: 11/21/20 07:43 11/21/20 07:43 Labs: Abnormal Lab Results - Last 24 Hours (Table) 11/19/20 11/20/20 11/20/20 Range/Units 20:05 06:12 07:35 WBC 12.6 H (3.8-10.6) k/uL RBC 2.54 L (3.80-5.40) m/uL Hgb 7.9 L (11.4-16.0) gm/dL Hct 23.7 L (34.0-46.0) % RDW 16.2 H (11.5-15.5) % Plt Count 476 H (150-450) k/uL Neutrophils # 9.7 H (1.3-7.7) k/uL Eosinophils # 0.8 H (0-0.7) k/uL BUN (7-17) mg/dL Creatinine (0.52-1.04) mg/dL Glucose (74-99) mg/dL POC Glucose (mg/dL) 220 H 204 H (75-99) mg/dL 11/20/20 11/20/20 11/20/20 Range/Units 07:35 11:45 16:51 WBC (3.8-10.6) k/uL RBC (3.80-5.40) m/uL Hgb (11.4-16.0) gm/dL Hct (34.0-46.0) % RDW (11.5-15.5) % Plt Count (150-450) k/uL Neutrophils # (1.3-7.7) k/uL Eosinophils # (0-0.7) k/uL BUN 58 H (7-17) mg/dL Creatinine 5.09 H (0.52-1.04) mg/dL Glucose 122 H (74-99) mg/dL POC Glucose (mg/dL) 136 H 165 H (75-99) mg/dL Assessment and Plan Assessment: Acute blood loss anemia secondary to GI bleed. Status post capsule endoscopy showed multiple AVMs. Symptomatic anemia ESRD on peritoneal dialysis Mild elevated troponin level possible demand ischemia Hypoalbuminemia Mild to moderate protein calorie malnutrition Diabetes type 2 insulin-dependent Coronary disease history of CABG History of stent placement Hypertension Hyperlipidemia Osteoarthritis Hypothyroidism Bilateral peripheral neuropathy diabetic History of gastric ulcer and lower GI bleed and history of transfusions DVT prophylaxis with SCDs Plan: Patient will be continued on Protonix 40 mg IV twice daily. Status post capsule endoscopy. Showed multiple AVMs. GI is planning for EGD and push enteroscopy today. Monitor H&H closely. Patient will be continued on peritoneal dialysis. Continue with home blood pressure medications and levothyroxine other medications. Replace electrolytes. Continue to follow closely. GI and nephrology is on board... Time with Patient: Greater than 30
--- NOTE | 2020-11-21 16:40 | P.PN ---
Subjective Progress Note Date: 11/21/20 Principal diagnosis: Acute blood loss anemia secondary to GI bleed Symptomatic anemia Patient is a 80-year-old female with a known history of coronary disease status post CABG and stent placement, aortic valve replacement, diabetes type 2 insulin-dependent, hypertension, hyperlipidemia, osteoarthritis, hypothyroidism, bilateral lower extremity peripheral neuropathy and ESRD on peritoneal dialysis for the past 3 years and history of gastric ulcer and lower GI bleeds with tra nsfusions were sent to ER from dialysis clinic due to low hemoglobin level. Patient was found to be hemoglobin of 5.6 on admission. Patient states that she has been having dark stools and was admitted to [facility] last week. Patient states that she did have 5 units of blood transfusion. She she had endoscopy and was told no active bleeding. Patient also had elevated troponin level, patient had cardiac catheterization but no intervention. Patient states that she was upset with all the procedures and left AMA. Otherwise patient denies any complaints of chest pain now. Mild shortness of breath and slightly increasing leg swelling. Denies any headache or dizziness or lightheadedness. No palpitations. No nausea vomiting abdominal pain or diarrhea. Patient is still having dark-colored stools. Laboratory showed WBC 16.3 hemoglobin 5.6 and platelets 492 Sodium 135 potassium 3.7 chloride 99, BUN 86 and creatinine 5.86 Calcium 8.3 magnesium 1.7 AST 19 ALT 11 and alk phos 77 Troponin 0 0.109 and albumin 2.2 11/18/2020 Patient is currently lying in the bed comfortably. Nausea vomiting is improved. Mild abdominal discomfort. Patient did have a bowel movement with dark stools this morning. No headache or dizziness or lightheadedness. Patient was seen by gastroenterology and is planning for capsule endoscopy. Laboratory data showed WBC 13.9 hemoglobin 6.9 and repeat hemoglobin 7.1 dated 07/02 Sodium 133 potassium 3.5 chloride 97 BUN 81 creatinine 5.45 and blood sugar is 250 Patient is being continued on peritoneal dialysis. 11/19/2020 Patient is sit in the chair. Complains of shortness of breath. Patient is undergoing peritoneal dialysis. Patient did haveBowel movement with dark stools today. Patient had capsule endoscopy and results are still pending. No compressive dizziness or lightheadedness. No nausea vomiting or abdominal pain. Nephrology and GI is on board. 11/20/2020 Patient is sitting in the chair. Complains of tightness and weak. No complaints of chest pain or worsening shortness breath. Hemoglobin is 7.9 today. Capsule endoscopy showed multiple AVMs. GI is planning for upper endoscopy with possible push enteroscopy. Continued on peritoneal dialysis. Blood pressure is on the lower side and hold blood pressure medications. Patient has been afebrile. No cough or sputum production. 11/21/2020 Patient is currently awake alert and oriented 3. Sitting in the chair. Dizziness is better. Patient was hypotensive this morning and blood pressure medications were held. Hemoglobin is fairly stable at 8.0, other laboratory data showed WBC 16.6 hemoglobin 8.0 and platelets 488 Sodium 135 potassium 3.7BUN 50. Creatinine 5.74 Patient underwent [employer] yesterday showed 1 cm clean-based duodenal bulbar ulcer along with duodenal sweep with active oozing status post cautery using a cold. Multiple small antral ulcers measuring between 3-5 in size with no active bleeding. Small scattered nonbleeding angiectasia in the head of the duodenum status post cautery. Patient will be continued on her chronic twice daily. Advance diet as tolerated. Current medications reviewed. Objective - Vital Signs Vital signs: Vital Signs Temp 98.5 F 11/21/20 12:00 Pulse 94 11/21/20 12:00 Resp 20 11/21/20 12:00 BP 126/58 11/21/20 12:00 Pulse Ox 95 11/21/20 12:00 Intake & Output 11/20/20 11/21/20 11/21/20 18:59 06:59 18:59 Intake Total 836 970 480 Balance 836 970 480 Weight 79.3 kg Intake: IV 100 Intake, IV Titration 500 Amount Sodium Chloride 0.9% 500 500 ml 500 ml @ 0 mls/hr IV . [facility] Rx#: [id number] Oral 236 970 480 Other: Voiding Method Toilet # Voids 0 - Exam PHYSICAL EXAMINATION: Patient is lying in the bed comfortably, no acute distress, awake alert and oriented.. HEENT: Normocephalic. Neck is supple. Pupils reactive. Nostrils clear. Oral cavity is moist. Neck reveals no JVD, carotid bruits, or thyromegaly. CHEST EXAMINATION: Trachea is central. Symmetrical expansion.Basilar fine crackles. No wheezing. Lung blankenship clear to auscultation and percussion. CARDIAC: Normal S1, S2 with no gallops. No murmurs ABDOMEN: Soft. Bowel sounds normal. No organomegaly. No abdominal bruits. Extremities: rtrace b/l edema. No clubbing or cyanosis Neurologically awake, alert, oriented x3 with well-coordinated movements. No focal deficits noted Skin: No rash or skin lesions. Psychiatric: Coperative. Nonsuicidal Musculoskeletal: No joint swelling or deformity. Normal range of motion. - Labs CBC & Chem 7: 11/21/20 07:43 11/21/20 07:43 Labs: Abnormal Lab Results - Last 24 Hours (Table) 11/20/20 11/20/20 11/21/20 Range/Units 16:51 20:10 07:43 WBC 16.6 H (3.8-10.6) k/uL RBC 2.55 L (3.80-5.40) m/uL Hgb 8.0 L (11.4-16.0) gm/dL Hct 24.2 L (34.0-46.0) % RDW 16.9 H (11.5-15.5) % Plt Count 488 H (150-450) k/uL Neutrophils # 12.9 H (1.3-7.7) k/uL Eosinophils # 0.9 H (0-0.7) k/uL Sodium (137-145) mmol/L BUN (7-17) mg/dL Creatinine (0.52-1.04) mg/dL Glucose (74-99) mg/dL POC Glucose (mg/dL) 165 H 292 H (75-99) mg/dL 11/21/20 11/21/20 Range/Units 07:43 11:45 WBC (3.8-10.6) k/uL RBC (3.80-5.40) m/uL Hgb (11.4-16.0) gm/dL Hct (34.0-46.0) % RDW (11.5-15.5) % Plt Count (150-450) k/uL Neutrophils # (1.3-7.7) k/uL Eosinophils # (0-0.7) k/uL Sodium 135 L (137-145) mmol/L BUN 53 H (7-17) mg/dL Creatinine 5.74 H (0.52-1.04) mg/dL Glucose 58 L (74-99) mg/dL POC Glucose (mg/dL) 176 H (75-99) mg/dL Assessment and Plan Assessment: Acute blood loss anemia secondary to GI bleed. Status post capsule endoscopy showed multiple AVMs. Status post EGD showing duodenal bulbar ulcer with active oozing status post cautery. Symptomatic anemia ESRD on peritoneal dialysis Mild elevated troponin level possible demand ischemia Hypoalbuminemia Mild to moderate protein calorie malnutrition Diabetes type 2 insulin-dependent Coronary disease history of CABG History of stent placement Hypertension Hyperlipidemia Osteoarthritis Hypothyroidism Bilateral peripheral neuropathy diabetic History of gastric ulcer and lower GI bleed and history of transfusions DVT prophylaxis with SCDs Plan: Patient will be continued on Protonix 40 mg IV twice daily. Status post capsule endoscopy. Showed multiple AVMs. Status post EGD showing duodenal bulb ulcer with active oozing status post cautery... Monitor H&H closely. Patient will be continued on peritoneal dialysis. Continue with home blood pressure medications and levothyroxine other medications. Replace electrolytes. Continue to follow closely. GI and ne phrology is on board... Time with Patient: Greater than 30
[2020-11-21 16:43] LABS: Glucose,Whole Blood 146 mg/dL (75-99)
[2020-11-21 20:04] LABS: Glucose,Whole Blood 235 mg/dL (75-99)
[2020-11-21] MEDS: INSULIN DETEMIR (LEVEMIR) 100 UNIT/ML SYR SQ SCH (20:17)
[2020-11-22] MEDS: DIALYSIS (PERIT 1.5%) 2,500 ML 30 G/2,000 ML BAG INTRAPERIT SCH ×4 (00:09→20:38)
[2020-11-22] MEDS: INSULIN ASPART (NovoLOG) 100 UNIT/ML VIAL SQ SCH ×4 (05:55→20:31)
[2020-11-22 06:14] LABS: Glucose,Whole Blood 49 mg/dL (75-99)
[2020-11-22 06:15] LABS: Glucose,Whole Blood 59 mg/dL (75-99)
[2020-11-22] MEDS: LEVOTHYROXINE 88 MCG TAB PO SCH (06:29)
[2020-11-22 06:40] LABS: Glucose,Whole Blood 104 mg/dL (75-99)
[2020-11-22 08:19] LABS: Glucose,Whole Blood 135 mg/dL (75-99)
--- NOTE | 2020-11-22 08:32 | P.PN ---
Subjective Patient is seen in follow-up for end-stage renal disease. She is maintained on peritoneal dialysis. Underwent EGD this admission with cautery of duodenal ulcer. No active bleeding. No chest pain or shortness of breath. Blood pressure stable. Feels tired. Vital signs are stable. General: The patient appeared well nourished and normally developed. HEENT: Head exam is unremarkable. Neck is without jugular venous distension. LUNGS: Breath sounds decreased. HEART: Rate and Rhythm are regular. ABDOMEN: Soft, no distention. EXTREMITITES: No edema. Objective - Vital Signs Vital signs: Vital Signs Temp 98.3 F 11/21/20 20:00 Pulse 64 11/22/20 05:50 Resp 18 11/22/20 05:50 BP 108/56 11/22/20 06:21 Pulse Ox 97 11/22/20 05:50 Intake & Output 11/21/20 11/22/20 11/22/20 18:59 06:59 18:59 Intake Total 720 1455 Balance 720 1455 Weight 78.8 kg Intake: Oral 720 1455 Other: Voiding Method Toilet # Voids 1 - Labs CBC & Chem 7: 11/21/20 07:43 11/21/20 07:43 Labs: Abnormal Lab Results - Last 24 Hours (Table) 11/21/20 11/21/20 11/21/20 Range/Units 07:43 11:45 16:42 Sodium 135 L (137-145) mmol/L BUN 53 H (7-17) mg/dL Creatinine 5.74 H (0.52-1.04) mg/dL Glucose 58 L (74-99) mg/dL POC Glucose (mg/dL) 176 H 146 H (75-99) mg/dL 11/21/20 11/22/20 11/22/20 Range/Units 19:41 05:52 06:14 Sodium (137-145) mmol/L BUN (7-17) mg/dL Creatinine (0.52-1.04) mg/dL Glucose (74-99) mg/dL POC Glucose (mg/dL) 235 H 49 L 59 L (75-99) mg/dL 11/22/20 11/22/20 Range/Units 06:39 08:18 Sodium (137-145) mmol/L BUN (7-17) mg/dL Creatinine (0.52-1.04) mg/dL Glucose (74-99) mg/dL POC Glucose (mg/dL) 104 H 135 H (75-99) mg/dL Assessment and Plan Plan: Assessment: 1. End-stage renal disease maintained on peritoneal dialysis. 2. Acute GI bleed status post EGD with cautery of duodenal ulcer. Nonbleeding angiectasia as were noted. Nonbleeding antral ulcers present as well. Status post blood transfusion. On Aranesp. 3. Diabetes mellitus. 4. Hypotension. Improved with fluid bolus. Plan: Stopped lisinopril. Change Lasix from IV to oral. Maintain current PD exchanges - 2 L every 6 hours with 1.5% solution.
[2020-11-22 09:31] LABS: Calcium 8.2 mg/dL (8.4-10.2); Potassium 3.5 mmol/L (3.5-5.1)
[2020-11-22] MEDS: FOLIC ACID 1 MG TAB PO SCH (09:34)
[2020-11-22] MEDS: FOLIC ACID-VIT B COMPLEX-VIT C 1 CAP PO SCH (09:34)
[2020-11-22] MEDS: PANTOPRAZOLE 40 MG/10 ML VIAL IVP SCH ×2 (09:34→20:30)
[2020-11-22] MEDS: FUROSEMIDE 80 MG TAB PO SCH (09:34)
[2020-11-22] MEDS: ISOSORBIDE MONONITRATE ER 30 MG TAB.ER.24H PO SCH (09:34)
[2020-11-22 09:35] LABS: Anisocytosis Slight; Basophils # (A) 0.1 k/uL (0-0.2); Basophils % (A) 1 %; Eosinophils # (A) 0.7 k/uL (0-0.7); Eosinophils % (A) 6 %; Hypochromasia Slight; Lymphocytes # (A) 1.2 k/uL (1.0-4.8); Lymphocytes % (A) 11 %; MCH 30.5 pg (25.0-35.0); MCHC 32.2 g/dL (31.0-37.0); MCV 94.6 fL (80.0-100.0); Macrocytosis Slight; Mean Platelet Volume 8.6; Monocytes # (A) 0.6 k/uL (0-1.0); Monocytes % (A) 6 %; Neutrophils % (A) 75 %; Platelet Count 389 k/uL (150-450); Poikilocytosis Slight; RBC 2.09 m/uL (3.80-5.40); RDW 17.5 % (11.5-15.5); WBC 10.7 k/uL (3.8-10.6)
[2020-11-22 09:44] LABS: HCT 19.8 % (34.0-46.0); HGB 6.4 gm/dL (11.4-16.0)
[2020-11-22 11:32] LABS: Glucose,Whole Blood 134 mg/dL (75-99)
[2020-11-22] MEDS ORDERED: SODIUM CHLORIDE 0.9% 250 ML IV ONE (14:50)
[2020-11-22 16:44] LABS: Glucose,Whole Blood 159 mg/dL (75-99)
[2020-11-22 20:22] LABS: Glucose,Whole Blood 212 mg/dL (75-99)
[2020-11-22] MEDS: INSULIN DETEMIR (LEVEMIR) 100 UNIT/ML SYR SQ SCH (20:31)
[2020-11-22 21:26] LABS: Anisocytosis Slight; Basophils # (A) 0.1 k/uL (0-0.2); Basophils % (A) 1 %; Eosinophils # (A) 0.8 k/uL (0-0.7); Eosinophils % (A) 6 %; HCT 26.4 % (34.0-46.0); Hypochromasia Slight; Lymphocytes # (A) 1.4 k/uL (1.0-4.8); Lymphocytes % (A) 11 %; MCH 30.6 pg (25.0-35.0); MCHC 32.7 g/dL (31.0-37.0); MCV 93.6 fL (80.0-100.0); Monocytes # (A) 0.6 k/uL (0-1.0); Monocytes % (A) 5 %; Neutrophils # (A) 10.1 k/uL (1.3-7.7); Neutrophils % (A) 77 %; Platelet Count 424 k/uL (150-450); Poikilocytosis Slight; RBC 2.82 m/uL (3.80-5.40); RDW 17.1 % (11.5-15.5); WBC 13.2 k/uL (3.8-10.6)
[2020-11-22 21:27] LABS: HGB 8.6 gm/dL (11.4-16.0)
[2020-11-22 21:58] VITALS: RESP 18
[2020-11-23] MEDS: DIALYSIS (PERIT 1.5%) 2,500 ML 30 G/2,000 ML BAG INTRAPERIT SCH ×3 (00:37→13:06)
--- NOTE | 2020-11-23 01:25 | P.PN ---
Subjective Progress Note Date: 11/22/20 Principal diagnosis: Acute blood loss anemia secondary to GI bleed Symptomatic anemia Patient is a 80-year-old female with a known history of coronary disease status post CABG and stent placement, aortic valve replacement, diabetes type 2 insulin-dependent, hypertension, hyperlipidemia, osteoarthritis, hypothyroidism, bilateral lower extremity peripheral neuropathy and ESRD on peritoneal dialysis for the past 3 years and history of gastric ulcer and lower GI bleeds with tra nsfusions were sent to ER from dialysis clinic due to low hemoglobin level. Patient was found to be hemoglobin of 5.6 on admission. Patient states that she has been having dark stools and was admitted to [facility] last week. Patient states that she did have 5 units of blood transfusion. She she had endoscopy and was told no active bleeding. Patient also had elevated troponin level, patient had cardiac catheterization but no intervention. Patient states that she was upset with all the procedures and left AMA. Otherwise patient denies any complaints of chest pain now. Mild shortness of breath and slightly increasing leg swelling. Denies any headache or dizziness or lightheadedness. No palpitations. No nausea vomiting abdominal pain or diarrhea. Patient is still having dark-colored stools. Laboratory showed WBC 16.3 hemoglobin 5.6 and platelets 492 Sodium 135 potassium 3.7 chloride 99, BUN 86 and creatinine 5.86 Calcium 8.3 magnesium 1.7 AST 19 ALT 11 and alk phos 77 Troponin 0 0.109 and albumin 2.2 11/18/2020 Patient is currently lying in the bed comfortably. Nausea vomiting is improved. Mild abdominal discomfort. Patient did have a bowel movement with dark stools this morning. No headache or dizziness or lightheadedness. Patient was seen by gastroenterology and is planning for capsule endoscopy. Laboratory data showed WBC 13.9 hemoglobin 6.9 and repeat hemoglobin 7.1 dated 07/02 Sodium 133 potassium 3.5 chloride 97 BUN 81 creatinine 5.45 and blood sugar is 250 Patient is being continued on peritoneal dialysis. 11/19/2020 Patient is sit in the chair. Complains of shortness of breath. Patient is undergoing peritoneal dialysis. Patient did haveBowel movement with dark stools today. Patient had capsule endoscopy and results are still pending. No compressive dizziness or lightheadedness. No nausea vomiting or abdominal pain. Nephrology and GI is on board. 11/20/2020 Patient is sitting in the chair. Complains of tightness and weak. No complaints of chest pain or worsening shortness breath. Hemoglobin is 7.9 today. Capsule endoscopy showed multiple AVMs. GI is planning for upper endoscopy with possible push enteroscopy. Continued on peritoneal dialysis. Blood pressure is on the lower side and hold blood pressure medications. Patient has been afebrile. No cough or sputum production. 11/21/2020 Patient is currently awake alert and oriented 3. Sitting in the chair. Dizziness is better. Patient was hypotensive this morning and blood pressure medications were held. Hemoglobin is fairly stable at 8.0, other laboratory data showed WBC 16.6 hemoglobin 8.0 and platelets 488 Sodium 135 potassium 3.7BUN 50. Creatinine 5.74 Patient underwent [employer] yesterday showed 1 cm clean-based duodenal bulbar ulcer along with duodenal sweep with active oozing status post cautery using a cold. Multiple small antral ulcers measuring between 3-5 in size with no active bleeding. Small scattered nonbleeding angiectasia in the head of the duodenum status post cautery. Patient will be continued on her chronic twice daily. Advance diet as tolerated. 11/22/2020 Patient is sitting in the chair. States that she feels very weak and tired. No complaints of worsening shortness of breath or chest pain. Blood pressure is stable. Patient has been afebrile. No cough or sputum production. Currently saturating at 95% on room air. Laboratory data showed WBC 10.7, hemoglobin 6.4 and platelets 389 Sodium 133 potassium 3.5 chloride 100 BUN 15 creatinine 5.28 and blood sugar is 103 and calcium 8.2 Patient did not have any bowel movement after the procedure. Current medications reviewed. Active Medications Generic Name Dose Route Start Last Admin Trade Name Freq PRN Reason Stop Dose Admin Acetaminophen 650 mg 11/19/20 22:09 11/20/20 16:10 Acetaminophen Tab 325 Mg Tab PO 650 mg Q4HR PRN Administration Fever and/ or Pain Darbepoetin Herman 60 mcg 11/18/20 14:00 11/18/20 18:27 Darbepoetin Herman 60 Mcg/0.3 Ml Syringe SQ 60 mcg Q7D LOCO Administration Folic Acid 1 mg 11/18/20 09:00 11/22/20 09:34 Folic Acid 1 Mg Tab PO 1 mg DAILY LOCO Administration Furosemide 80 mg 11/22/20 09:00 11/22/20 09:34 Furosemide 80 Mg Tab PO 80 mg DAILY LOCO Administration Peritoneal Dialysis Solution 30 g in 2,000 mls @ 0 mls/hr 11/21/20 08:00 11/23/20 00:37 Delflex With 1.5% Dextrose (2,500 Ml) INTRAPERIT Not Given Q6HR LOCO Protocol As Directed Insulin Aspart 0 unit 11/18/20 12:30 11/22/20 20:31 Insulin Aspart (Novolog) 100 Unit/Ml Vial SQ 3 unit ACHS LOCO Administration Protocol Insulin Detemir 35 unit 11/19/20 21:00 11/22/20 20:31 Insulin Detemir (Levemir) 100 Unit/Ml Syr SQ 35 unit HS LOCO Administration Isosorbide Mononitrate 30 mg 11/18/20 09:00 11/22/20 09:34 Isosorbide Mononitrate Er 30 Mg Tab.Er.24h PO 30 mg DAILY LOCO Administration Levothyroxine Sodium 176 mcg 11/18/20 06:30 11/22/20 06:29 Levothyroxine 88 Mcg Tab PO 176 mcg 0630 LOCO Administration Multivit/Ca Carb/B Cmplx/FA/Prenat 1 each 11/18/20 09:00 11/22/20 09:34 Folic Acid-Vit B Complex-Vit C 1 Cap PO 1 each DAILY LOCO Administration Pantoprazole Sodium 40 mg 11/17/20 15:45 11/22/20 20:30 Pantoprazole 40 Mg/10 Ml Vial IVP 40 mg BID LOCO Administration Objective - Vital Signs Vital signs: Vital Signs Temp 98.1 F 11/22/20 18:20 Pulse 95 11/22/20 18:20 Resp 16 11/22/20 18:20 BP 98/43 11/22/20 18:20 Pulse Ox 96 11/22/20 18:20 Intake & Output 11/22/20 11/22/20 11/23/20 06:59 18:59 06:59 Intake Total 1455 1570 Balance 1455 1570 Weight 78.8 kg Intake: Intake, IV Titration 250 Amount Sodium Chloride 0.9% 250 250 ml @ 999 mls/hr IV .Q16M ONE Rx#:[id number] Oral 1455 700 Blood Product 620 Rc As-1 Unit 310 [id number] Other: Voiding Method Toilet Toilet # Voids 1 0 - Exam PHYSICAL EXAMINATION: Patient is lying in the bed comfortably, no acute distress, awake alert and oriented.. HEENT: Normocephalic. Neck is supple. Pupils reactive. Nostrils clear. Oral cavity is moist. Neck reveals no JVD, carotid bruits, or thyromegaly. CHEST EXAMINATION: Trachea is central. Symmetrical expansion.Basilar fine crackles. No wheezing. Lung blankenship clear to auscultation and percussion. CARDIAC: Normal S1, S2 with no gallops. No murmurs ABDOMEN: Soft. Bowel sounds normal. No organomegaly. No abdominal bruits. Extremities: rtrace b/l edema. No clubbing or cyanosis Neurologically awake, alert, oriented x3 with well-coordinated movements. No focal deficits noted Skin: No rash or skin lesions. Psychiatric: Coperative. Nonsuicidal Musculoskeletal: No joint swelling or deformity. Normal range of motion. - Labs CBC & Chem 7: 11/22/20 21:14 11/22/20 08:28 Labs: Abnormal Lab Results - Last 24 Hours (Table) 11/22/20 11/22/20 11/22/20 Range/Units 05:52 06:14 06:39 WBC (3.8-10.6) k/uL RBC (3.80-5.40) m/uL Hgb (11.4-16.0) gm/dL Hct (34.0-46.0) % RDW (11.5-15.5) % Neutrophils # (1.3-7.7) k/uL Sodium (137-145) mmol/L BUN (7-17) mg/dL Creatinine (0.52-1.04) mg/dL Glucose (74-99) mg/dL POC Glucose (mg/dL) 49 L 59 L 104 H (75-99) mg/dL Calcium (8.4-10.2) mg/dL Crossmatch 11/22/20 11/22/20 11/22/20 Range/Units 08:18 08:28 08:28 WBC 10.7 H (3.8-10.6) k/uL RBC 2.09 L (3.80-5.40) m/uL Hgb 6.4 L* D (11.4-16.0) gm/dL Hct 19.8 L* (34.0-46.0) % RDW 17.5 H (11.5-15.5) % Neutrophils # 8.0 H (1.3-7.7) k/uL Sodium 133 L (137-145) mmol/L BUN 50 H (7-17) mg/dL Creatinine 5.28 H (0.52-1.04) mg/dL Glucose 103 H (74-99) mg/dL POC Glucose (mg/dL) 135 H (75-99) mg/dL Calcium 8.2 L (8.4-10.2) mg/dL Crossmatch 11/22/20 11/22/20 11/22/20 Range/Units 10:30 11:30 16:33 WBC (3.8-10.6) k/uL RBC (3.80-5.40) m/uL Hgb (11.4-16.0) gm/dL Hct (34.0-46.0) % RDW (11.5-15.5) % Neutrophils # (1.3-7.7) k/uL Sodium (137-145) mmol/L BUN (7-17) mg/dL Creatinine (0.52-1.04) mg/dL Glucose (74-99) mg/dL POC Glucose (mg/dL) 134 H 159 H (75-99) mg/dL Calcium (8.4-10.2) mg/dL Crossmatch See Detail 11/22/20 Range/Units 19:48 WBC (3.8-10.6) k/uL RBC (3.80-5.40) m/uL Hgb (11.4-16.0) gm/dL Hct (34.0-46.0) % RDW (11.5-15.5) % Neutrophils # (1.3-7.7) k/uL Sodium (137-145) mmol/L BUN (7-17) mg/dL Creatinine (0.52-1.04) mg/dL Glucose (74-99) mg/dL POC Glucose (mg/dL) 212 H (75-99) mg/dL Calcium (8.4-10.2) mg/dL Crossmatch Assessment and Plan Assessment: Acute blood loss anemia secondary to GI bleed. Status post capsule endoscopy showed multiple AVMs. Status post EGD showing duodenal bulbar ulcer with active oozing status post cautery. Symptomatic anemia ESRD on peritoneal dialysis Mild elevated troponin level possible demand ischemia Hypoalbuminemia Mild to moderate protein calorie malnutrition Diabetes type 2 insulin-dependent Coronary disease history of CABG History of stent placement Hypertension Hyperlipidemia Osteoarthritis Hypothyroidism Bilateral peripheral neuropathy diabetic History of gastric ulcer and lower GI bleed and history of transfusions DVT prophylaxis with SCDs Plan: Patient is being transfused with 1 unit of PRBC. Patient is being continued hemodialysis as per nephrology. Patient will be continued on Protonix 40 mg IV twice daily. Status post capsule endoscopy. Showed multiple AVMs. Status post EGD showing duodenal bulb ulcer with active oozing status post cautery... Monitor H&H closely. Patient will be continued on peritoneal dialysis. Continue with home blood pressure medications and levothyroxine other medications. Replace electrolytes. Continue to follow closely. GI and nephrology is on board... Time with Patient: Greater than 30
[2020-11-23 06:23] LABS: Glucose,Whole Blood 54 mg/dL (75-99)
[2020-11-23] MEDS: INSULIN ASPART (NovoLOG) 100 UNIT/ML VIAL SQ SCH ×2 (06:25→12:07)
[2020-11-23] MEDS: LEVOTHYROXINE 88 MCG TAB PO SCH (06:28)
[2020-11-23 06:42] LABS: Glucose,Whole Blood 65 mg/dL (75-99)
[2020-11-23 06:45] LABS: Glucose,Whole Blood 112 mg/dL (75-99)
[2020-11-23 08:00] LABS: Anisocytosis Slight; Basophils # (A) 0.1 k/uL (0-0.2); Basophils % (A) 1 %; Eosinophils # (A) 0.8 k/uL (0-0.7); Eosinophils % (A) 6 %; HCT 26.8 % (34.0-46.0); HGB 8.8 gm/dL (11.4-16.0); Hypochromasia Slight; Lymphocytes # (A) 1.4 k/uL (1.0-4.8); Lymphocytes % (A) 12 %; MCH 30.9 pg (25.0-35.0); MCHC 32.7 g/dL (31.0-37.0); MCV 94.5 fL (80.0-100.0); Macrocytosis Slight; Mean Platelet Volume 8.6; Monocytes # (A) 0.7 k/uL (0-1.0); Monocytes % (A) 6 %; Neutrophils % (A) 75 %; Platelet Count 436 k/uL (150-450); Poikilocytosis Slight; RBC 2.84 m/uL (3.80-5.40); RDW 17.2 % (11.5-15.5)
[2020-11-23 08:09] LABS: Calcium 8.4 mg/dL (8.4-10.2); Potassium 3.8 mmol/L (3.5-5.1)
[2020-11-23] MEDS: FUROSEMIDE 80 MG TAB PO SCH (09:02)
[2020-11-23] MEDS: FOLIC ACID-VIT B COMPLEX-VIT C 1 CAP PO SCH (09:02)
[2020-11-23] MEDS: PANTOPRAZOLE 40 MG/10 ML VIAL IVP SCH (09:02)
[2020-11-23] MEDS: FOLIC ACID 1 MG TAB PO SCH (09:02)
[2020-11-23] MEDS: ISOSORBIDE MONONITRATE ER 30 MG TAB.ER.24H PO SCH (09:02)
--- NOTE | 2020-11-23 09:20 | P.PN ---
Subjective Patient is seen in follow-up for end-stage renal disease. She is maintained on peritoneal dialysis. Underwent EGD this admission with cautery of duodenal ulcer. No active bleeding. She did receive blood transfusion again yesterday. No chest pain or shortness of breath. Blood pressure stable. She refused peritoneal dialysis exchange last night. Vital signs are stable. General: The patient appeared well nourished and normally developed. HEENT: Head exam is unremarkable. Neck is without jugular venous distension. LUNGS: Breath sounds decreased. HEART: Rate and Rhythm are regular. ABDOMEN: Soft, no distention. EXTREMITITES: No edema. Objective - Vital Signs Vital signs: Vital Signs Temp 97.7 F 11/23/20 04:00 Pulse 87 11/23/20 04:00 Resp 18 11/23/20 04:00 BP 114/62 11/23/20 06:00 Pulse Ox 96 11/23/20 07:38 Intake & Output 11/22/20 11/23/20 11/23/20 18:59 06:59 18:59 Intake Total 1570 120 236 Output Total 240 Balance 1570 -120 236 Weight 78.4 kg Intake: Intake, IV Titration 250 Amount Sodium Chloride 0.9% 250 250 ml @ 999 mls/hr IV .Q16M ONE Rx#:[id number] Oral 700 120 236 Blood Product 620 Rc As-1 Unit 310 [id number] Output: Urine 240 Other: Voiding Method Toilet Toilet # Voids 0 1 # Bowel Movements 0 - Labs CBC & Chem 7: 11/23/20 07:22 11/23/20 07:22 Labs: Abnormal Lab Results - Last 24 Hours (Table) 11/22/20 11/22/20 11/22/20 Range/Units 08:28 08:28 10:30 WBC 10.7 H (3.8-10.6) k/uL RBC 2.09 L (3.80-5.40) m/uL Hgb 6.4 L* D (11.4-16.0) gm/dL Hct 19.8 L* (34.0-46.0) % RDW 17.5 H (11.5-15.5) % Neutrophils # 8.0 H (1.3-7.7) k/uL Eosinophils # (0-0.7) k/uL Sodium 133 L (137-145) mmol/L BUN 50 H (7-17) mg/dL Creatinine 5.28 H (0.52-1.04) mg/dL Glucose 103 H (74-99) mg/dL POC Glucose (mg/dL) (75-99) mg/dL Calcium 8.2 L (8.4-10.2) mg/dL Crossmatch See Detail 11/22/20 11/22/20 11/22/20 Range/Units 11:30 16:33 19:48 WBC (3.8-10.6) k/uL RBC (3.80-5.40) m/uL Hgb (11.4-16.0) gm/dL Hct (34.0-46.0) % RDW (11.5-15.5) % Neutrophils # (1.3-7.7) k/uL Eosinophils # (0-0.7) k/uL Sodium (137-145) mmol/L BUN (7-17) mg/dL Creatinine (0.52-1.04) mg/dL Glucose (74-99) mg/dL POC Glucose (mg/dL) 134 H 159 H 212 H (75-99) mg/dL Calcium (8.4-10.2) mg/dL Crossmatch 11/22/20 11/23/20 11/23/20 Range/Units 21:14 06:03 06:24 WBC 13.2 H (3.8-10.6) k/uL RBC 2.82 L (3.80-5.40) m/uL Hgb 8.6 L D (11.4-16.0) gm/dL Hct 26.4 L (34.0-46.0) % RDW 17.1 H (11.5-15.5) % Neutrophils # 10.1 H (1.3-7.7) k/uL Eosinophils # 0.8 H (0-0.7) k/uL Sodium (137-145) mmol/L BUN (7-17) mg/dL Creatinine (0.52-1.04) mg/dL Glucose (74-99) mg/dL POC Glucose (mg/dL) 54 L 65 L (75-99) mg/dL Calcium (8.4-10.2) mg/dL Crossmatch 11/23/20 11/23/20 11/23/20 Range/Units 06:43 07:22 07:22 WBC 12.0 H (3.8-10.6) k/uL RBC 2.84 L (3.80-5.40) m/uL Hgb 8.8 L (11.4-16.0) gm/dL Hct 26.8 L (34.0-46.0) % RDW 17.2 H (11.5-15.5) % Neutrophils # 9.0 H (1.3-7.7) k/uL Eosinophils # 0.8 H (0-0.7) k/uL Sodium 134 L (137-145) mmol/L BUN 57 H (7-17) mg/dL Creatinine 5.05 H (0.52-1.04) mg/dL Glucose 147 H (74-99) mg/dL POC Glucose (mg/dL) 112 H (75-99) mg/dL Calcium (8.4-10.2) mg/dL Crossmatch Assessment and Plan Plan: Assessment: 1. End-stage renal disease maintained on peritoneal dialysis. 2. Acute GI bleed status post EGD with cautery of duodenal ulcer. Nonbleeding angiectasia as were noted. Nonbleeding antral ulcers present as well. Status post blood transfusion. On Aranesp. 3. Diabetes mellitus. 4. Hypotension. Improved with fluid bolus. Plan: Stopped lisinopril. Maintain oral Lasix. Maintain current PD exchanges - 2 L every 6 hours with 1.5% solution.
--- NOTE | 2020-11-23 12:00 | P.DS ---
Providers Date of admission: 11/17/20 14:30 Attending physician: Ignacio Ingram Consults: 11/17/20 14:30 Consult Physician Urgent Consulting Provider: Isabelle Gordon Consult Reason/Comments: pt. needs peritoneal dialysis qid Do you want consulting provider notified?: Yes 11/18/20 12:04 Consult Physician Urgent Consulting Provider: Anna Luque Consult Reason/Comments: gi bleed Do you want consulting provider notified?: Yes Primary care physician: [facility] Hospital Course: Patient is a 80-year-old female with a known history of coronary disease status post CABG and stent placement, aortic valve replacement, diabetes type 2 insulin-dependent, hypertension, hyperlipidemia, osteoarthritis, hypothyroidism, bilateral lower extremity peripheral neuropathy and ESRD on peritoneal dialysis for the past 3 years and history of gastric ulcer and lower GI bleeds with transfusions were sent to ER from dialysis clinic due to low hemoglobin level. Patient was found to be hemoglobin of 5.6 on admission. Patient had a upper GI endoscopy which showed multiple AVMs and had oozing clean based duodenal bulbar ulcer. Patient doesn't have any blood in the stools or dark stools for last couple days since Monday. Patient's immobility stable at this time patient will be discharged today to follow with gastroneurology and PCP as outpatient. Patient does peritoneal dialysis at home. PHYSICAL EXAMINATION: GENERAL: The patient is alert and oriented x3, not in any acute distress. Well developed, well nourished. HEENT: Pupils are round and equally reacting to light. EOMI. No scleral icterus. No conjunctival pallor. Normocephalic, atraumatic. No pharyngeal erythema. No thyromegaly. CARDIOVASCULAR: S1 and S2 present. No murmurs, rubs, or gallops. PULMONARY: Chest is clear to auscultation, no wheezing or crackles. ABDOMEN: Soft, nontender, nondistended, normoactive bowel sounds. No palpable organomegaly. MUSCULOSKELETAL: No joint swelling or deformity. EXTREMITIES: No cyanosis, clubbing, or pedal edema. NEUROLOGICAL: Gross neurological examination did not reveal any focal deficits. SKIN: No rashes. Assessment and Plan Assessment: Acute blood loss anemia secondary to GI bleed. Status post capsule endoscopy showed multiple AVMs. Status post EGD showing duodenal bulbar ulcer with active oozing status post cautery. No clinical GI bleed for last 3 days Symptomatic anemia resolved at this time ESRD on peritoneal dialysis Mild elevated troponin level possible demand ischemia Mild protein calorie malnutrition Diabetes type 2 insulin-dependent Coronary disease history of CABG History of stent placement Hypertension Hyperlipidemia Osteoarthritis Hypothyroidism Bilateral peripheral neuropathy diabetic History of gastric ulcer and lower GI bleed and history of transfusions Plan - Discharge Summary Discharge Rx Participant: Yes New Discharge Prescriptions: New Furosemide [Lasix] 80 mg PO DAILY #30 tab Continue Levothyroxine Sodium [Synthroid] 175 mcg PO DAILY Insulin Glargine [Lantus Vial] 53 unit SQ HS Isosorbide Mononitrate ER [Imdur] 30 mg PO DAILY Folic Acid 1 mg PO DAILY Folic Acid-Vit B Complex-Vit C [Nephrocaps] 1 cap PO DAILY Changed Pantoprazole [Protonix] 40 mg PO BID #60 tab Discontinued Lisinopril [Zestril] 20 mg PO BID Discharge Medication List Levothyroxine Sodium [Synthroid] 175 mcg PO DAILY 07/03/20 [History] Folic Acid 1 mg PO DAILY 11/17/20 [History] Folic Acid-Vit B Complex-Vit C [Nephrocaps] 1 cap PO DAILY 11/17/20 [History] Insulin Glargine [Lantus Vial] 53 unit SQ HS 11/17/20 [History] Isosorbide Mononitrate ER [Imdur] 30 mg PO DAILY 11/17/20 [History] Furosemide [Lasix] 80 mg PO DAILY #30 tab 11/23/20 [Rx] Pantoprazole [Protonix] 40 mg PO BID #60 tab 11/23/20 [Rx] Follow up Appointment(s)/Referral(s): Amado Nair [NON-STAFF] - Justus Gottlieb DO [Primary Care Provider] - 3 Days
[2020-11-23 12:02] LABS: Glucose,Whole Blood 103 mg/dL (75-99)
--- NOTE | 2020-11-23 12:41 | P.CONS ---
History of Present Illness - Reason for Consult Consult date: 11/23/20 wound care - History of Present Illness Is an 80-year-old [place] female being seen on [address] for nonhealing ulceration to the right buttocks. Patient states that the ulceration started approximately 2 weeks ago. He should been using zinc barrier cream to the site. However while she was in the hospital the ulceration has worsened. The right buttock has a stage II pressure ulcer with fatty layer exposure. No tunnel undermining noted grade lesion seen within the wound bed with devitalized tissue, [place]. His past medical history significant for coronary artery disease, diabetes, GI bleed, hyperlipidemia, hypertension, hypothyroidism. Lifelong nonsmoker Review Of Systems: Constitutional: No fever, no chills, no night sweats. No weight change. No weakness, fatigue or lethargy. No daytime sleepiness. Integumentary:reports wounds, no lesions. No rash or pruritus. No unusual bruising. No change in hair or nails. Physical exam: General Appearance: Alert, cooperative, no distress, appears stated age. Skin: See HPI all other Skin color, texture, tugor normal, no rashes or lesions. Neurologic: Alert oriented x3 Assessment: 1. Pressure ulcer right buttock stage II 2. Diabetes a skin ulcer Plan: 1. Apply triad to the site daily. Utilize a waffle cushion for sitting. Thank you for the consultation any questions please contact the wound care center DNP note has been reviewed and discussed with Dr. Sung and the impression and plan of care has been directed as dictated. Past Medical History Past Medical History: Coronary Artery Disease (CAD), Diabetes Mellitus, GI Bleed, Hyperlipidemia, Hypertension, Osteoarthritis (OA), Pneumonia, Renal Dis ease, Thyroid Disorder Additional Past Medical History / Comment(s): IDDM type II, neuropathy bilateral feet, ESRD/peritoneal dialysis x 3 years, UTI in past, pneumonia as a child, arthritis in bilateral hands, gastric ulcer, lower GI bleed with transfusions, past would "miss a heartbeat once in awhile", hypothyroid. History of Any Multi-Drug Resistant Organisms: None Reported Past Surgical History: Cardiac Valve Replacement, Coronary Bypass/CABG, Heart Catheterization, Heart Catheterization With Stent Additional Past Surgical History / Comment(s): 2018 CABG 3 vessels with valve replacement at [facility], peritoneal dialysis catheter, EGDs, colonoscopies, thyroidectomy d/t precancerous, bilateral cataract removal/lens implants. Additional Past Anesthesia/Blood Transfusion Reaction / Comm: Sometimes slow to wake. Pt has received blood in past without reaction. Date of Last Stent Placement:: 2015 Past Psychological History: No Psychological Hx Reported Smoking Status: Never smoker Past Alcohol Use History: None Reported Past Drug Use History: None Reported - Past Family History Father Family Medical History: Myocardial Infarction ([place]) Additional Family Medical History / Comment(s): Father of a [place] at the age of 65yrs. Mother Family Medical History: CVA/TIA Additional Family Medical History / Comment(s): Mother of a CVA at the age of 78yrs. Medications and Allergies Home Medications Medication Instructions Recorded Confirmed Type Levothyroxine Sodium [Synthroid] 175 mcg PO DAILY 07/03/20 11/17/20 History Folic Acid 1 mg PO DAILY 11/17/20 11/17/20 History Folic Acid-Vit B Complex-Vit C 1 cap PO DAILY 11/17/20 11/17/20 History [Nephrocaps] Insulin Glargine [Lantus Vial] 53 unit SQ HS 11/17/20 11/17/20 History Isosorbide Mononitrate ER [Imdur] 30 mg PO DAILY 11/17/20 11/17/20 History Furosemide [Lasix] 80 mg PO DAILY #30 tab 11/23/20 Rx Pantoprazole [Protonix] 40 mg PO BID #60 tab 11/23/20 Rx Allergies Allergy/AdvReac Type Severity Reaction Status Date / Time ciprofloxacin [From Cipro] Allergy Unknown Verified 11/17/20 14:45 levofloxacin [From Levaquin] Allergy Swelling Verified 11/17/20 14:45 Penicillins Allergy Swelling Verified 11/17/20 14:45 Sulfa (Sulfonamide Allergy Swelling Verified 11/17/20 14:45 Antibiotics) Physical Exam Vitals: Vital Signs Temp Pulse Pulse Resp BP BP BP 11/23/20 08:00 97.8 F 92 18 108/57 11/23/20 07:38 11/23/20 07:30 11/23/20 06:00 114/62 11/23/20 04:00 97.7 F 87 18 115/58 11/23/20 02:00 90 18 11/23/20 00:00 90 18 127/57 11/22/20 20:00 98.2 F 87 18 101/47 11/22/20 18:20 98.1 F 95 16 98/43 11/22/20 17:43 98.3 F 93 18 119/57 11/22/20 15:15 98.3 F 89 16 109/62 11/22/20 14:57 98.3 F 82 16 81/40 11/22/20 14:27 98.1 F 83 16 83/41 11/22/20 14:17 98.3 F 82 18 83/40 11/22/20 12:39 98.3 F 91 18 108/55 Pulse Ox 11/23/20 08:00 99 11/23/20 07:38 96 11/23/20 07:30 83 L 11/23/20 06:00 11/23/20 04:00 96 11/23/20 02:00 11/23/20 00:00 96 11/22/20 20:00 95 11/22/20 18:20 96 11/22/20 17:43 96 11/22/20 15:15 97 11/22/20 14:57 94 L 11/22/20 14:27 93 L 11/22/20 14:17 97 11/22/20 12:39 98 Intake and Output 11/22/20 11/23/20 11/23/20 22:59 06:59 14:59 Intake Total 1090 120 236 Output Total 240 Balance 1090 -120 236 Intake: Intake, IV Titration 250 Amount Sodium Chloride 0.9% 250 250 ml @ 999 mls/hr IV .Q16M ONE Rx#:[id number] Oral 220 120 236 Blood Product 620 Rc As-1 Unit 310 [id number] Output: Urine 240 Other: Voiding Method Toilet Toilet Toilet # Voids 0 1 # Bowel Movements 0 Weight 78.4 kg Results CBC & Chem 7: 11/23/20 07:22 11/23/20 07:22 Labs: Abnormal Lab Results - Last 24 Hours (Table) 11/22/20 11/22/20 11/22/20 Range/Units 10:30 16:33 19:48 WBC (3.8-10.6) k/uL RBC (3.80-5.40) m/uL Hgb (11.4-16.0) gm/dL Hct (34.0-46.0) % RDW (11.5-15.5) % Neutrophils # (1.3-7.7) k/uL Eosinophils # (0-0.7) k/uL Sodium (137-145) mmol/L BUN (7-17) mg/dL Creatinine (0.52-1.04) mg/dL Glucose (74-99) mg/dL POC Glucose (mg/dL) 159 H 212 H (75-99) mg/dL Crossmatch See Detail 11/22/20 11/23/20 11/23/20 Range/Units 21:14 06:03 06:24 WBC 13.2 H (3.8-10.6) k/uL RBC 2.82 L (3.80-5.40) m/uL Hgb 8.6 L D (11.4-16.0) gm/dL Hct 26.4 L (34.0-46.0) % RDW 17.1 H (11.5-15.5) % Neutrophils # 10.1 H (1.3-7.7) k/uL Eosinophils # 0.8 H (0-0.7) k/uL Sodium (137-145) mmol/L BUN (7-17) mg/dL Creatinine (0.52-1.04) mg/dL Glucose (74-99) mg/dL POC Glucose (mg/dL) 54 L 65 L (75-99) mg/dL Crossmatch 11/23/20 11/23/20 11/23/20 Range/Units 06:43 07:22 07:22 WBC 12.0 H (3.8-10.6) k/uL RBC 2.84 L (3.80-5.40) m/uL Hgb 8.8 L (11.4-16.0) gm/dL Hct 26.8 L (34.0-46.0) % RDW 17.2 H (11.5-15.5) % Neutrophils # 9.0 H (1.3-7.7) k/uL Eosinophils # 0.8 H (0-0.7) k/uL Sodium 134 L (137-145) mmol/L BUN 57 H (7-17) mg/dL Creatinine 5.05 H (0.52-1.04) mg/dL Glucose 147 H (74-99) mg/dL POC Glucose (mg/dL) 112 H (75-99) mg/dL Crossmatch 11/23/20 Range/Units 11:55 WBC (3.8-10.6) k/uL RBC (3.80-5.40) m/uL Hgb (11.4-16.0) gm/dL Hct (34.0-46.0) % RDW (11.5-15.5) % Neutrophils # (1.3-7.7) k/uL Eosinophils # (0-0.7) k/uL Sodium (137-145) mmol/L BUN (7-17) mg/dL Creatinine (0.52-1.04) mg/dL Glucose (74-99) mg/dL POC Glucose (mg/dL) 103 H (75-99) mg/dL Crossmatch Assessment and Plan (1) Pressure ulcer of right buttock, stage 2 Current Visit: Yes Status: Acute Code(s): L89.312 - PRESSURE ULCER OF RIGHT BUTTOCK, STAGE 2 SNOMED Code(s): 46824099323303472 (2) Diabetes with skin ulcer Current Visit: Yes Status: Acute Code(s): E11.622 - TYPE 2 DIABETES MELLITUS WITH OTHER SKIN ULCER; L98.499 - NON-PRESSURE CHRONIC ULCER OF SKIN OF SITES W UNSP SEVERITY SNOMED Code(s): 04770624
[2020-11-23] MEDS ORDERED: HYDROPHILIC CREAM 180 GM TUBE TOPICAL SCH (12:45)
[2020-11-23 13:10] VITALS: BP 129/60; PULSE 94; TEMP 98
[2020-11-23 14:05] VITALS: BMI 28.8
[2020-11-23] MEDS ORDERED: PANTOPRAZOLE 40 MG TABLET PO SCH (21:00)
== END 2020-11-23 15:40 | disposition home or self-care (01) | DRG 377 ==
LOC: EC 12:41 → 3SCARD 14:30
PROVIDERS: ADMIT Internal Medicine; ATTEND Internal Medicine
PROC: 30233N1 Transfusion of Nonautologous Red Blood Cells into Peripheral Vein, Percutaneous Approach (ICD-10-PCS; 2020-11-17)
PROC: 0W3P8ZZ Control Bleeding in Gastrointestinal Tract, Via Natural or Artificial Opening Endoscopic (ICD-10-PCS; principal; 2020-11-20 08:45)
DX: K25.4 Chronic or unspecified gastric ulcer with hemorrhage (principal); N18.6 End stage renal disease; I12.0 Hypertensive chronic kidney disease with stage 5 chronic kidney disease or end stage renal disease; E44.0 Moderate protein-calorie malnutrition; D62 Acute posthemorrhagic anemia; K26.9 Duodenal ulcer, unspecified as acute or chronic, without hemorrhage or perforation; I25.10 Atherosclerotic heart disease of native coronary artery without angina pectoris; I49.3 Ventricular premature depolarization; I99.8 Other disorder of circulatory system; K44.9 Diaphragmatic hernia without obstruction or gangrene; K59.00 Constipation, unspecified; L89.312 Pressure ulcer of right buttock, stage 2; L98.499 Non-pressure chronic ulcer of skin of other sites with unspecified severity; M19.90 Unspecified osteoarthritis, unspecified site; M89.9 Disorder of bone, unspecified; E89.0 Postprocedural hypothyroidism; E87.70 Fluid overload, unspecified; E87.6 Hypokalemia; E78.5 Hyperlipidemia, unspecified; E11.622 Type 2 diabetes mellitus with other skin ulcer; E11.42 Type 2 diabetes mellitus with diabetic polyneuropathy; E11.22 Type 2 diabetes mellitus with diabetic chronic kidney disease; D63.1 Anemia in chronic kidney disease; D53.9 Nutritional anemia, unspecified; Z95.1 Presence of aortocoronary bypass graft; Z79.4 Long term (current) use of insulin; Z79.890 Hormone replacement therapy; Z79.899 Other long term (current) drug therapy; Z82.3 Family history of stroke; Z82.49 Family history of ischemic heart disease and other diseases of the circulatory system; Z87.440 Personal history of urinary (tract) infections; Z95.2 Presence of prosthetic heart valve; Z95.5 Presence of coronary angioplasty implant and graft; Z96.1 Presence of intraocular lens; Z99.2 Dependence on renal dialysis; K29.80 Duodenitis without bleeding; K55.20 Angiodysplasia of colon without hemorrhage
CPT/HCPCS: 36415; 43255; 71046; 80048; 80053; 82728; 83540; 83550; 83735; 84484; 85025; 85027; 85610; 85730; 86850; 86900; 86901; 86920; 91110; 94760; 96360; 99291